=== PATIENT | male | born 1950 | race Caucasian/White ===

== ENCOUNTER 2017-10-22 15:42 | Emergency (ER) | payer MEDICARE, SELFPAY ==
[2017-10-22 15:42] VITALS: BP 128/72; BP 155/73; PULSE 48; PULSE 49; RESP 18; RESP 20; TEMP 36.5; O2SAT 95; O2SAT 96; BMI 35.6
[2017-10-22 16:31] VITALS: BP 127/72; PULSE 57; RESP 16; O2SAT 96
--- NOTE | 2017-10-22 17:40 | [facility]H.EDCP ---
ED Disposition Clinical Impression: Chest pain Qualifiers: Chest pain type: unspecified Qualified Code(s): R07.9 - Chest pain, unspecified Disposition: Home, Self-Care Condition on Discharge: Good Instructions: DI for Atypical Chest Pain Additional Instructions: Call Dr. Harry tomorrow morning, to be seen within the next 2 days. Additional instructions for CHEST PAIN: See your physician as soon as possible for further evaluation. Return immediately if worsening chest pain, vomiting, shortness of breath, fever, coughing of blood. Prescriptions: Nitroglycerin [Nitrostat 0.4mg SL Tablet] 0.4 mg SL Q5MINP PRN #1 bottle PRN Reason: Chest Pain Referrals: Jarred Montiel [Primary Care Provider] - - Critical Care Critical Care Time: No Attestation: On 10/22/17, the high probability of a clinically significant, sudden or life threatening deterioration of the following system(s) required my full and direct attention, intervention and personal management. The time I documented below is in addition to time spent performing reported procedures but includes the following listed in this critical care notation. Medical Decision Making Vital Signs: 10/22/17 15:42 10/22/17 16:31 10/22/17 18:36 Temperature 97.7 F Temperature Source Oral Pulse Rate [Right Radial] 48 L 57 L 43 L Respiratory Rate 20 16 18 Blood Pressure [Right Arm] 128/72 127/72 161/76 Blood Pressure Mean [Right Arm] 90 90 104 Blood Pressure Source [Right Arm] Automatic Cuff Automatic Cuff Automatic Cuff Blood Pressure Position [Right Arm] Supine Sitting Sitting 02 Sat by Pulse Oximetry 95 96 97 Oxygen Delivery Method Room Air Room Air Room Air - Lab Data Lab Results 10/22/17 17:30: WBC 6.8, RBC 4.67, Hgb 13.6 L, Hct 42.4, MCV 90.8, MCH 29.2, MCHC 32.2, RDW 13.7, Plt Count 189, MPV 10.0, Neut % (Auto) 55.3, Lymph % (Auto) 33.4, [place] % (Auto) 7.3, Eos % (Auto) 3.2, Baso % (Auto) 0.9, Neut # (Auto) 3.8, Lymph # (Auto) 2.3, [place] # (Auto) 0.5, Eos # (Auto) 0.2, Baso # (Auto) 0.1 10/22/17 17:30: Sodium 143, Potassium 3.8, Chloride 107, Carbon Dioxide 26, Anion Gap 13.8, BUN 18, Creatinine 0.90, Estimated Creat Clear 135, Estimated GFR 85, Est GFR ( Amer) 102, Glucose 109 H, Calcium 8.4 L, Total Bilirubin 0.3, AST 16, ALT 33, Alkaline Phosphatase 96, Troponin I < 0.02, Total Protein 6.8, Albumin 3.5, Globulin 3.3 H, Albumin/Globulin Ratio 1.1 Result diagrams: 10/22/17 17:30 10/22/17 17:30 Orders (Tests/Meds): ORDERS Category Date Time Status XR chest portable Stat Exams 10/22/17 17:44 Taken - Radiology Data #1 Image(s): Chest Image Reviewed: Yes I reviewed the patient's radiology results Preliminary Findings: Normal/NAD - ECG Data Tracing #1 EKG interpreted by Rasheed Delgado MD: Rhythm: sinus bradycardia Rate: 7 [place]: normal Ectopy: none Conduction: Right bundle branch block ST Segment Changes: none T Wave Changes: none Q Waves: none No evidence of acute ischemia or injury Bundle-branch new since last EKG here in 2012. - Rodo Inquiry Pt receiving controlled substance: No Medical Decision Making Narrative: 6:53 PM: The patient has been pain-free since arriving in the emergency department. Workup is negative. It is felt that one troponin is sufficient given the duration of his symptoms, continuously for 24 hours. I discussed the case with Dr. Day, covering for Dr. barbosa, his perinatal instructor. He feels the patient can be discharged home to follow-up in the office this week. The patient says he has an appointment to be seen next , but I advised him to call in the morning to try to be seen sooner. Return to the emergency department if chest pain recurs. Chest Pain HPI - General Chief Complaint: Chest Pain Stated Complaint: chest pain Mode of Arrival: Ambulatory Limitations: No Limitations Description of Symptoms (Recalled from ER Triage Doc. by RN): left cp that radiates to inner left arm.
--- NOTE | 2017-10-22 17:44 | XR_ITS ---
XR chest portable HISTORY: ITS.REASON: chest pain ORDERING PHYSICIAN: Rasheed Delgado MD PATIENT AGE: 67 years COMPARISON: 10/23/2011 FINDINGS: The cardiomediastinal silhouette and pulmonary vascularity are within normal limits. There is increased density in the right lung base medially somewhat more prominent from the previous study may be due to an area of atelectasis or fibrosis versus patchy infiltrate. Remaining lungs are clear.. No acute bony abnormalities. IMPRESSION: Atelectasis versus fibrotic change or infiltrate in the right lung base
[2017-10-22 18:31] LABS: Basophils # 0.1 K/mm3 (0-0.2); Basophils % 0.9 % (0.1-2.0); Eosinophils # 0.2 K/mm3 (0.0-0.4); Eosinophils % 3.2 % (0.1-12.0); Hematocrit 42.4 % (42.0-52.0); Hemoglobin 13.6 g/dL (14.1-18.0); Lymphocytes # 2.3 K/mm3 (0.7-4.5); Lymphocytes % 33.4 K/mm3 (10-50); Mean Corpuscular HGB Conc 32.2 g/dL (31.8-35.4); Mean Corpuscular Hemoglobin 29.2 pg (27.0-31.2); Mean Corpuscular Volume 90.8 fl (80-94); Monocytes # 0.5 K/mm3 (0.1-1.0); Monocytes % 7.3 % (1.7-9.3); Neutrophils # 3.8 K/mm3 (1.8-7.8); Neutrophils % 55.3 % (37.0-80.0); Platelet Count 189 K/mm3 (142-424); Red Blood Count 4.67 M/mm3 (4.60-6.20); Red Cell Distribution Width 13.7 % (11.5-17.5); White Blood Count 6.8 K/mm3 (4.8-10.8)
[2017-10-22 18:36] VITALS: BP 161/76; PULSE 43; RESP 18; O2SAT 97
[2017-10-22 18:36] LABS: Alanine Aminotransferase 33 U/L (12-78); Albumin Level 3.5 gm/dL (3.4-5.0); Albumin/Globulin Ratio 1.1 (1.1-1.8); Alkaline Phosphatase 96 U/L (46-116); Anion Gap 13.8 mEq/L (5-15); Aspartate Amino Transferase 16 U/L (15-37); Bilirubin,Total 0.3 mg/dL (0.2-1.0); Blood Urea Nitrogen 18 mg/dL (7-18); Calcium 8.4 mg/dL (8.5-10.1); Carbon Dioxide 26 mmol/L (21.0-32.0); Chloride 107 mmol/L (98-107); Creatinine Clearance Estimated 135 mL/min (0-300); Estimated Glomerular Filt Rate 85 ml/min (>60); GFR (African American) 102 ML/MIN (>60); Globulin 3.3 gm/dl (1.3-3.2); Glucose 109 mg/dL (74-106); Potassium 3.8 mmoL/L (3.5-5.1); Sodium 143 mmol/L (136-145); Total Protein,Serum 6.8 gm/dL (6.4-8.2); Troponin I < 0.02 ng/ml (0.00-0.06)
--- NOTE | 2017-10-22 19:08 | PC.NURSE ---
1846- DR. YADAV ON PHONE WITH ANODIZING LINE OPERATOR FOR CARDIOLOGY.
== END 2017-10-22 19:25 | disposition home or self-care (01) ==
PROVIDERS: Emergency Provider Emergency Medicine; Family Provider Family Medicine; PCP Family Medicine
DX: R07.9 Chest pain, unspecified (principal); I25.2 Old myocardial infarction; E11.9 Type 2 diabetes mellitus without complications; Z95.5 Presence of coronary angioplasty implant and graft; Z96.653 Presence of artificial knee joint, bilateral; Z87.891 Personal history of nicotine dependence
CPT/HCPCS: 71045; 80053; 84484; 85025; 93005; 99283

== ENCOUNTER → 2018-01-03 08:17 | Outpatient (CLI) | payer MEDICARE, SELFPAY ==
[2018-01-03 08:24] LABS: Microscopic, Urine URINE MICROSCOPIC (MICROSCOPIC)
[2018-01-03 08:48] LABS: Basophils # 0.1 K/mm3 (0-0.2); Basophils % 0.6 % (0.1-2.0); Eosinophils # 0.3 K/mm3 (0.0-0.4); Eosinophils % 3.3 % (0.1-12.0); Hematocrit 45.4 % (42.0-52.0); Hemoglobin 14.9 g/dL (14.1-18.0); Lymphocytes # 2.6 K/mm3 (0.7-4.5); Lymphocytes % 30.1 K/mm3 (10-50); Mean Corpuscular HGB Conc 32.7 g/dL (31.8-35.4); Mean Corpuscular Hemoglobin 29.4 pg (27.0-31.2); Mean Corpuscular Volume 89.8 fl (80-94); Mean Platelet Volume 8.9 fl (7.4-10.4); Monocytes # 0.4 K/mm3 (0.1-1.0); Monocytes % 4.7 % (1.7-9.3); Neutrophils # 5.4 K/mm3 (1.8-7.8); Neutrophils % 61.4 % (37.0-80.0); Platelet Count 222 K/mm3 (142-424); Red Blood Count 5.05 M/mm3 (4.60-6.20); Red Cell Distribution Width 13.4 % (11.5-17.5); White Blood Count 8.8 K/mm3 (4.8-10.8)
[2018-01-03 08:49] LABS: Appearance,Urine CLEAR (Clear); Bilirubin,Urine Negative (Negative); Blood, Urine Negative (Negative); Color,Urine YELLOW (Yellow); Glucose,Urine (UA) Negative (Negative); Ketones,Urine Negative (Negative); Leukocyte Esterase,Urine Negative (Negative); Nitrate,Urine Negative (Negative); Protein,Urine Negative (Negative); Urobilinogen,Urine 0.2 EU/dl (0.2)
[2018-01-03 08:55] LABS: Bacteria,Urine 1+ /lpf; Mucus,Urine 1+ /lpf; WBC,Urine Occasional #/hpf (0-3)
[2018-01-03 10:45] LABS: Alanine Aminotransferase 33 U/L (12-78); Albumin/Globulin Ratio 1.3 (1.1-1.8); Alkaline Phosphatase 107 U/L (46-116); Anion Gap 13.4 mEq/L (5-15); Aspartate Amino Transferase 17 U/L (15-37); Bilirubin,Total 0.3 mg/dL (0.2-1.0); Blood Urea Nitrogen 19 mg/dL (7-18); Calcium 9.1 mg/dL (8.5-10.1); Carbon Dioxide 28 mmol/L (21.0-32.0); Chloride 105 mmol/L (98-107); Chol/HDL Ratio 1.8 (1-3.5); Cholesterol 125 mg/dL (140-200); Creatinine,Serum 0.91 mg/dL (0.70-1.30); Estimated Glomerular Filt Rate 84 ml/min (>60); Free T4 (Free Thyroxine) 0.88 ng/dl (0.76-1.46); GFR (African American) 101 ML/MIN (>60); Glucose 124 mg/dL (74-106); HDL Cholesterol 68 mg/dL (27-67); LDL Cholesterol 44 mg/dL (0-130); Potassium 4.4 mmoL/L (3.5-5.1); Prostate Specific Ag Screen 0.5 ng/mL (0.0-4.0); Sodium 142 mmol/L (136-145); Thyroid Stimulating Hormone 2.51 uIU/ml (0.358-3.740); Triglycerides 64 mg/dL (30-200); VLDL Cholesterol 13 mg/dL (0-40)
[2018-01-04 06:40] LABS: Creatinine, Urine 122.5 mg/dL (Not Estab.); Microalbumin, Urine 5.1 ug/mL (Not Estab.)
== END ==
PROVIDERS: PCP Family Medicine; Visit Provider Family Medicine
DX: E78.5 Hyperlipidemia, unspecified (principal); I10 Essential (primary) hypertension; E11.9 Type 2 diabetes mellitus without complications; I25.10 Atherosclerotic heart disease of native coronary artery without angina pectoris; R35.1 Nocturia; Z12.5 Encounter for screening for malignant neoplasm of prostate
CPT/HCPCS: 36415; 80053; 80061; 81001; 82043; 82570; 84439; 84443; 85025; G0103

== ENCOUNTER → 2018-01-21 15:20 | Outpatient (CLI) | payer MEDICARE, SELFPAY ==
--- NOTE | 2018-01-21 15:34 | CT_ITS ---
CT lung screening EXAM: CT LUNG LOW DOSE WO CONTRAST HISTORY: History of cigarette smoking asymptomatic ITS.REASON: H/O NICOTINE DEPENDENCE ORDERING PHYSICIAN: Jarred Montiel PATIENT AGE: 68 years COMPARISON: TECHNIQUE: The exam was performed on a GE Light Speed [address] scanner using 2.9 mGy CTDI. A low dose helical CT CHEST was performed on a multi-detector scanner. All CT scans at the facility use one or more dose reduction, viz: automated exposure control; ma/kV adjustment per patient size (including targeted exams where dose is matched to indication; i.e. head); or iterative reconstruction technique. The LDCT was performed in a facility that meets the criteria for the screening program. Data regarding this exam was submitted to ACR which is an approved registry. The order for this exam indicates that it came as a result of a lung cancer screening counseling shard decision-making visit that included all the elements required of such a visit including smoking cessation. The radiologist interpreting this exam meets the CMS criteria for the LDCT lung cancer screening program. The exam is reported using the Lung-RADS classification scale and reported to the ACR registry. NOTE: This study was performed for the specific purposes of lung cancer screening and is not an alternative to diagnostic chest CT. RADIATION DOSE: CTDI vol(CT dose Index-volume) = 2.9mG DLP (Dose Length Product) = 110.6 mGcm FINDINGS: There is calcified granuloma in the left apex. 3 mm nodule in the right middle lobe also appears to represent a calcified granuloma. 4 mm well-circumscribed nodule left apex within the superior segment of left lower lobe representing granuloma. No suspicious pulmonary nodules evident. There are coronary artery calcifications. There is herniation of the lung into the right eighth interspace posterior laterally. 5 mm stone is present in the upper pole the right kidney. IMPRESSION: 1. Lung RADS Category: 2, benign 2. Other findings: Coronary artery calcification suggesting coronary artery disease. 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
== END ==
PROVIDERS: Family Provider Family Medicine; PCP Family Medicine; Visit Provider Family Medicine
DX: Z87.891 Personal history of nicotine dependence (principal); Z12.2 Encounter for screening for malignant neoplasm of respiratory organs

== ENCOUNTER → 2020-05-18 08:16 | Outpatient (CLI) | payer MEDICARE, SELFPAY ==
[2020-05-18 08:24] LABS: Microscopic, Urine URINE MICROSCOPIC (MICROSCOPIC)
[2020-05-18 09:08] LABS: Appearance,Urine CLEAR (Clear); Bilirubin,Urine Negative (Negative); Blood, Urine Negative (Negative); Color,Urine YELLOW (Yellow); Glucose,Urine (UA) Negative (Negative); Ketones,Urine Negative (Negative); Leukocyte Esterase,Urine Negative (Negative); Nitrate,Urine Negative (Negative); Protein,Urine Negative (Negative); Specific Gravity, Urine 1.015 (1.005-1.030); Urobilinogen,Urine 0.2 EU/dl (0.2)
[2020-05-18 09:09] LABS: Creatinine,Urine Random 150 mg/dL (Not Estab.)
[2020-05-18 09:11] LABS: Microalbumin/Creatinine Ratio 10.2
[2020-05-18 09:19] LABS: Chloride 107 mmol/L (98-107); Potassium 4.8 mmoL/L (3.5-5.1); Sodium 143 mmol/L (136-145)
[2020-05-18 09:21] LABS: Blood Urea Nitrogen 18 mg/dl (9-20); Estimated Glomerular Filt Rate 74 ml/min (>60); GFR (African American) 90 ML/MIN (>60)
[2020-05-18 09:22] LABS: Alanine Aminotransferase 26 U/L (12-78); Albumin Level 4.1 g/dl (3.5-5.0); Albumin/Globulin Ratio 1.6 (1.1-1.8); Alkaline Phosphatase 83 U/L (38-126); Anion Gap 13.8 mEq/L (5-15); Aspartate Amino Transferase 24 U/L (17-59); Bilirubin,Total 0.5 mg/dl (0.2-1.3); Calcium 10.1 mg/dl (8.4-10.2); Carbon Dioxide 27 mmol/L (22.0-30.0); Chol/HDL Ratio 1.9 (1-3.5); Cholesterol 115 mg/dl (140-200); Globulin 2.6 g/dL (1.3-3.2); Glucose 137 mg/dl (74-100); HDL Cholesterol 62 mg/dl (40-60); Total Protein,Serum 6.7 g/dl (6.3-8.2); Triglycerides 103 mg/dl (30-150); VLDL Cholesterol 21 mg/dL (0-40)
[2020-05-18 09:28] LABS: WBC,Urine Occasional #/hpf (0-3)
[2020-05-18 09:34] LABS: Direct LDL Cholesterol 40.18 mg/dL (100-129)
[2020-05-18 09:39] LABS: Free T4 (Free Thyroxine) 0.88 ng/dl (0.78-2.19)
[2020-05-18 11:45] LABS: Prostate Specific Ag Screen 0.4 ng/ml (0.0-4.0)
[2020-05-18 11:46] LABS: Basophils % 0.5 % (0.1-2.0); Eosinophils # 0.4 K/mm3 (0.0-0.4); Eosinophils % 4.1 % (0.1-12.0); Hematocrit 42.9 % (42.0-52.0); Hemoglobin 14.1 g/dL (14.1-18.0); Lymphocytes # 2.3 K/mm3 (0.7-4.5); Lymphocytes % 26.8 % (10-50); Mean Corpuscular HGB Conc 32.8 g/dL (31.8-35.4); Mean Corpuscular Hemoglobin 30.9 pg (27.0-31.2); Mean Corpuscular Volume 94.1 fl (80-94); Mean Platelet Volume 9.7 fl (7.4-10.4); Monocytes # 0.4 K/mm3 (0.1-1.0); Neutrophils # 5.4 K/mm3 (1.8-7.8); Neutrophils % 63.6 % (37.0-80.0); Platelet Count 213 K/mm3 (142-424); Red Blood Count 4.56 M/mm3 (4.60-6.20); Red Cell Distribution Width 13.9 % (11.5-17.5); White Blood Count 8.5 K/mm3 (4.8-10.8)
== END ==
PROVIDERS: Visit Provider Family Medicine
DX: I25.10 Atherosclerotic heart disease of native coronary artery without angina pectoris (principal); I10 Essential (primary) hypertension; E11.9 Type 2 diabetes mellitus without complications; Z79.84 Long term (current) use of oral hypoglycemic drugs; N40.0 Benign prostatic hyperplasia without lower urinary tract symptoms; Z12.5 Encounter for screening for malignant neoplasm of prostate; R35.1 Nocturia
CPT/HCPCS: 36415; 80053; 80061; 81001; 82043; 82570; 84439; 85025; G0103

== ENCOUNTER → 2020-06-09 07:55 | Outpatient (CLI) | payer MEDICARE, SELFPAY ==
--- NOTE | 2020-06-09 | CT_ITS ---
PROCEDURE: CT LUNG SCREENING CLINICAL INDICATION: HX OF NICOTINE DEPENDENCE Former smoker quit 9 years ago 40 pack year smoking history CAD prior 01/21/18 COMPARISON: CT LUNGSCREEN CT lung screening from 01/21/2018 TECHNIQUE: The exam was performed on a GE Light Speed [address] scanner using 2.90 mGy CTDI. A low dose helical CT CHEST was performed on a multi-detector scanner. All CT scans at the facility use one or more dose reduction, viz: automated exposure control, ma/kV adjustment per patient size (including targeted exams where dose is matched to indication, i.e. head), or iterative reconstruction technique. The LDCT was performed in a facility that meets the criteria for the screening program. Data regarding this exam was submitted to ACR which is an approved registry. The order for this exam indicates that it came as a result of a lung cancer screening counseling shard decision-making visit that included all the elements required of such a visit including smoking cessation. The radiologist interpreting this exam meets the [facility] criteria for the LDCT lung cancer screening program. The exam is reported using the Lung-RADS classification scale and reported to the ACR registry. NOTE: This study was performed for the specific purposes of lung cancer screening and is not an alternative to diagnostic chest CT. RADIATION DOSE: CTDI vol(CT dose Index-volume) = 2.90mG DLP (Dose Length Product) = 109.16 mGcm FINDINGS: The the the. Stable 3 mm nodule right middle lobe. Stable herniation of the lung into the right 8th interspace posterior laterally fiber granuloma left apex OTHER FINDINGS: Coronary artery calcifications. Gynecomastia IMPRESSION: Lung-RADS Category 2 Benign Appearance or Behavior Follow-up: 12 month LDCT Dictated by: Francisco Dixon MD 06/11/2020 10:57 Francisco Dixon MD in [place] 06/11/2020 10:57
== END ==
PROVIDERS: PCP Family Medicine; Visit Provider Family Medicine
DX: Z87.891 Personal history of nicotine dependence (principal); Z12.2 Encounter for screening for malignant neoplasm of respiratory organs

== ENCOUNTER 2021-03-10 21:13 | Emergency (ER) | payer MEDICARE, SELFPAY ==
[2021-03-10 21:21] VITALS: BMI 41.8
--- NOTE | 2021-03-10 21:23 | CT_ITS ---
PROCEDURE INFORMATION: Exam: CT Cervical Spine Without Contrast Exam date and time: 03/10/2021 9:23 PM Age: 71 years old Clinical indication: Injury or trauma; Blunt trauma; Patient HX: Fall and hit head, no loc; Additional info: Fall with head injury TECHNIQUE: Imaging protocol: Computed tomography images of the cervical spine without contrast. Radiation optimization: All CT scans at this facility use at least one of these dose optimization techniques: automated exposure control; mA and/or kV adjustment per patient size (includes targeted exams where dose is matched to clinical indication); or iterative reconstruction. COMPARISON: No relevant prior studies available. FINDINGS: Bones/joints: Nonspecific straightening. Grade 1 anterolisthesis of C4 on C5. Vertebral body heights are preserved. Moderate degenerative change about the dens. Moderate prevertebral osteophytosis. There are bilateral facet joint degenerative changes. No acute cervical spine fracture. Discs/Spinal canal/Neural foramina: Suspect at least mild central canal stenosis at C5-C6 and C6-C7. Multilevel cervical foraminal stenoses. Lungs: Lung apices are normal. Pleural spaces: No visible pneumothorax. Soft tissues: Unremarkable. IMPRESSION: No acute cervical spine fracture.
--- NOTE | 2021-03-10 21:23 | CT_ITS ---
PROCEDURE INFORMATION: Exam: CT Chest With Contrast; Diagnostic Exam date and time: 03/10/2021 9:23 PM Age: 71 years old Clinical indication: Injury or trauma; Blunt trauma (contusions or hematomas); Patient HX: Fall, right sided rib pain under arm, PT states HX of rib FX on that same side years ago; Additional info: Fall with head injury TECHNIQUE: Imaging protocol: Diagnostic computed tomography of the chest with contrast. 3D rendering (Not supervised by radiologist): MIP and/or 3D reconstructed images were created by the technologist. Radiation optimization: All CT scans at this facility use at least one of these dose optimization techniques: automated exposure control; mA and/or kV adjustment per patient size (includes targeted exams where dose is matched to clinical indication); or iterative reconstruction. Contrast material: ISOVUE; Contrast volume: 75 ml; Contrast route: IV; COMPARISON: 1. CR CXR2V XR chest 2V 03/03/2018 6:[address] lung screening 01/21/2018 4:06:39 PM FINDINGS: Lungs: No acute interstitial or airspace disease. The airways are patent. Stable/chronic herniation of the right lung base into the right 8th intercostal space. Pleural spaces: Unremarkable. No pneumothorax. No pleural effusion. Heart: The heart is mildly enlarged. There is severe atherosclerotic calcification of the coronary arteries. No pericardial thickening or effusion. Mediastinal space: A small hiatal hernia is present. Pulmonary arteries: Normal in course and caliber. 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 The aorta demonstrates mild atherosclerotic calcification. No acute aortic pathology. 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 Lymph nodes: No adenopathy. Kidneys and ureters: There are multiple right renal collecting system calcifications. There are multiple left renal collecting system calcifications. Bones/joints: Linear fracture to the lateral segment of the right 5th rib, new from the reference examination. No other acutely displaced fractures are identified. Moderate multilevel degenerative changes of the spine, as manifested by multilevel anterior osteophytes and multilevel decrease in intervertebral disc space. Stable chronic widening of the right 8th intercostal space. Soft tissues: No acute soft tissue findings are appreciated. Other findings: The visualized intra-abdominal structures demonstrate no acute findings. IMPRESSION: 1. Linear fracture to the lateral segment of the right 5th rib, new from the reference examination. 2. Incidental findings as detailed above.
--- NOTE | 2021-03-10 21:23 | XR_ITS ---
PROCEDURE INFORMATION: Exam: XR Chest Exam date and time: 03/10/2021 9:23 PM Age: 71 years old Clinical indication: Injury or trauma; Blunt trauma (contusions or hematomas); Patient HX: Fall, right sided rib pain under arm, PT states HX of rib FX on that same side years ago; Additional info: Fall with right rib pain TECHNIQUE: Imaging protocol: XR of the chest. Views: 4 or more views. COMPARISON: CT CHEST W CON 03/10/2021 11:02 PM FINDINGS: Airway: The airways are patent. Lungs: No acute interstitial or airspace disease. Pleural spaces: There are no pleural effusions present. There is no evidence of pneumothorax. Heart/Mediastinum: The heart is mildly enlarged. Bones/joints: Please note that there are is a linear fracture to the lateral segment of the right 5th rib which is not confidently seen in this exam, however is seen in the chest CT performed concomitantly; please review. No other acutely displaced fractures are identified. IMPRESSION: Please note that there are is a linear fracture to the lateral segment of the right 5th rib which is not confidently seen in this exam, however is seen in the chest CT performed concomitantly; please review.
--- NOTE | 2021-03-10 21:23 | CT_ITS ---
PROCEDURE INFORMATION: Exam: CT Head Without Contrast Exam date and time: 03/10/2021 9:23 PM Age: 71 years old Clinical indication: Injury or trauma; Blunt trauma (contusions or hematomas); Without loss of consciousness; Patient HX: Fall and hit head, no loc; Additional info: Fall with head injury TECHNIQUE: Imaging protocol: Computed tomography of the head without contrast. Radiation optimization: All CT scans at this facility use at least one of these dose optimization techniques: automated exposure control; mA and/or kV adjustment per patient size (includes targeted exams where dose is matched to clinical indication); or iterative reconstruction. COMPARISON: No relevant prior studies available. FINDINGS: Brain: Moderate to severe volume loss. No acute intracranial hemorrhage, midline shift or intracranial mass effect. Cerebral ventricles: Ventriculomegaly is commensurate for degree of volume loss. Paranasal sinuses: Visualized sinuses are unremarkable. No fluid levels. Mastoid air cells: Visualized mastoid air cells are well aerated. Bones/joints: Unremarkable. No acute fracture. Soft tissues: Unremarkable. IMPRESSION: No acute intracranial abnormality.
--- NOTE | 2021-03-10 21:23 | XR_ITS ---
PROCEDURE INFORMATION: Exam: XR Pelvis Exam date and time: 03/10/2021 9:23 PM Age: 71 years old Clinical indication: Injury or trauma; Fall; Blunt trauma (contusions or hematomas); Does not apply; Pelvic region TECHNIQUE: Imaging protocol: XR pelvis. Views: 1 or 2 view. COMPARISON: ABDPELW/O CT ABD PELVIS W/O CONTRAST 12/01/2015 3:08 PM FINDINGS: Bones/joints: Mild bilateral hip osteoarthritis. Normal anatomic alignment. There is no evidence of acutely displaced fractures. There is no evidence of joint dislocation. No aggressive osseous lesions. Soft tissues: There is no significant soft tissue swelling. IMPRESSION: Negative for acute skeletal pathology.
[2021-03-10 21:27] VITALS: BP 178/83; PULSE 55; RESP 22; TEMP 36.6; O2SAT 98; BMI 41.8
--- NOTE | 2021-03-10 21:41 | HMH.EDFALL ---
ED Disposition Clinical Impression: Concussion without loss of consciousness Qualifiers: Encounter type: initial encounter Qualified Code(s): S06.0X0A - Concussion without loss of consciousness, initial encounter Rib fracture Qualifiers: Encounter type: initial encounter Rib fracture type: single rib Fracture type: closed Laterality: right Qualified Code(s): S22.31XA - Fracture of one rib, right side, initial encounter for closed fracture Disposition: Home, Self-Care Condition on Discharge: Good Instructions: DI for Rib Fracture Additional Instructions: use meds and see pcp for follow up Referrals: Jarred Montiel [Primary Care Provider] - - Critical Care Critical Care Time: No Attestation: On 03/10/21, the high probability of a clinically significant, sudden or life threatening deterioration of the following system(s) required my full and direct attention, intervention and personal management. The time I documented below is in addition to time spent performing reported procedures but includes the following listed in this critical care notation. Medical Decision Making - Medical Records Medical records reviewed: Yes: I reviewed the patient's medical records. - Rodo Inquiry Pt receiving controlled substance: No Vital Signs: 03/10/21 21:27 03/10/21 22:31 03/10/21 23:31 Temperature 97.8 F Temperature Source Oral Pulse Rate 46 L 54 L Pulse Rate [Right] 55 L Respiratory Rate 22 Blood Pressure 146/67 H 158/76 H Blood Pressure [Right Arm] 178/83 H Blood Pressure Mean 89 Blood Pressure Mean [Right Arm] 114 Blood Pressure Source [Right Arm] Automatic Cuff Blood Pressure Position [Right Arm] Sitting 02 Sat by Pulse Oximetry 98 95 97 Oxygen Delivery Method Room Air 03/11/21 00:01 Temperature Temperature Source Pulse Rate 52 L Pulse Rate [Right] Respiratory Rate Blood Pressure 168/80 H Blood Pressure [Right Arm] Blood Pressure Mean 94 Blood Pressure Mean [Right Arm] Blood Pressure Source [Right Arm] Blood Pressure Position [Right Arm] 02 Sat by Pulse Oximetry 96 Oxygen Delivery Method - Lab Data Lab results reviewed: Yes: I reviewed the patient's lab results. Lab Results 03/10/21 22:00: WBC 9.2, RBC 4.31 L, Hgb 13.2 L, Hct 38.1 L, MCV 88.3, MCH 30.5, MCHC 34.5, RDW 13.9, Plt Count 192, MPV 9.6, Neut % (Auto) 69.0, Lymph % (Auto) 22.1, [place] % (Auto) 6.0, Eos % (Auto) 2.3, Baso % (Auto) 0.7, Neut # (Auto) 6.3, Lymph # (Auto) 2.0, [place] # (Auto) 0.6, Eos # (Auto) 0.2, Baso # (Auto) 0.1, ESR 16 03/10/21 22:00: Sodium 140, Potassium 4.0, Chloride 112 H, Carbon Dioxide 23, Anion Gap 9.0, BUN 20, Creatinine 0.90, Estimated Creat Clear 83, Estimated GFR 84, Est GFR ( Amer) 101, Glucose 123 H, Calcium 9.1, Total Bilirubin 0.6, AST 27, ALT 30, Alkaline Phosphatase 98, C-Reactive Protein 1.7, Total Protein 6.9, Albumin 4.2, Globulin 2.7, Albumin/Globulin Ratio 1.6, Procalcitonin 0.074 Result diagrams: 03/10/21 22:00 03/10/21 22:00 Orders (Tests/Meds): ED MEDICATIONS Generic Name Dose Route Start Last Admin Trade Name Freq PRN Reason Stop Dose Admin Sodium Chloride 1,000 mls @ 999 mls/hr 03/10/21 21:30 03/10/21 22:06 Sod Chlor 0.9% 1000ml Bag IV 03/10/21 22:30 999 mls/hr .[id number] HOLLIE Administration Discontinued Medications Generic Name Dose Route Start Last Admin Trade Name Freq PRN Reason Stop Dose Admin Acetaminophen/Codeine Phosphate 1 kala 03/11/21 00:39 Acetaminophen 300mg W/Codeine 30mg Take Home Pack (6) PO 03/11/21 00:40 ONCE ONE Hydromorphone HCl 1 mg 03/10/21 22:05 03/10/21 22:06 Hydromorphone 2mg/Ml Syringe IV 03/10/21 22:06 1 mg ONCE ONE Administration Hydromorphone HCl 1 mg 03/10/21 23:28 03/10/21 23:29 Hydromorphone 2mg/Ml Syringe IV 03/10/21 23:29 1 mg ONCE ONE Administration Iopamidol 75 ml 03/10/21 23:26 03/10/21 23:27 Iopamidol-370 (76%);100ml Bottle IV 03/10/21 23:27 75 ml ONCE ONE A
[2021-03-10 22:27] LABS: Basophils # 0.1 K/mm3 (0-0.2); Basophils % 0.7 % (0.1-2.0); Eosinophils # 0.2 K/mm3 (0.0-0.4); Eosinophils % 2.3 % (0.1-12.0); Hematocrit 38.1 % (42.0-52.0); Hemoglobin 13.2 g/dL (14.1-18.0); Lymphocytes % 22.1 % (10-50); Mean Corpuscular HGB Conc 34.5 g/dL (31.8-35.4); Mean Corpuscular Hemoglobin 30.5 pg (27.0-31.2); Mean Corpuscular Volume 88.3 fl (80-94); Mean Platelet Volume 9.6 fl (7.4-10.4); Monocytes # 0.6 K/mm3 (0.1-1.0); Neutrophils # 6.3 K/mm3 (1.8-7.8); Platelet Count 192 K/mm3 (142-424); Red Blood Count 4.31 M/mm3 (4.60-6.20); Red Cell Distribution Width 13.9 % (11.5-17.5); White Blood Count 9.2 K/mm3 (4.8-10.8)
[2021-03-10 22:31] VITALS: BP 146/67; PULSE 46; O2SAT 95
[2021-03-10 22:33] LABS: Alanine Aminotransferase 30 U/L (12-78); Albumin Level 4.2 g/dl (3.5-5.0); Albumin/Globulin Ratio 1.6 (1.1-1.8); Alkaline Phosphatase 98 U/L (38-126); Aspartate Amino Transferase 27 U/L (17-59); Bilirubin,Total 0.6 mg/dl (0.2-1.3); Blood Urea Nitrogen 20 mg/dl (9-20); Calcium 9.1 mg/dl (8.4-10.2); Carbon Dioxide 23 mmol/L (22.0-30.0); Chloride 112 mmol/L (98-107); Creatinine Clearance Estimated 83 mL/min (50-200); Estimated Glomerular Filt Rate 84 ml/min (>60); GFR (African American) 101 ML/MIN (>60); Globulin 2.7 g/dL (1.3-3.2); Glucose 123 mg/dl (74-100); Sodium 140 mmol/L (136-145); Total Protein,Serum 6.9 g/dl (6.3-8.2)
[2021-03-10 22:38] LABS: C-Reactive Protein 1.7 mg/L (0-4)
[2021-03-10 22:51] LABS: Procalcitonin 0.074 ng/mL (0.0-2.0)
[2021-03-10 23:05] LABS: Erythrocyte Sedimentation Rate 16 mm/hr (0-20)
[2021-03-10 23:31] VITALS: BP 158/76; PULSE 54; O2SAT 97
[2021-03-11 00:01] VITALS: BP 168/80; PULSE 52; O2SAT 96
[2021-03-11 01:00] VITALS: BP 147/76; PULSE 59; RESP 16; TEMP 36.6; O2SAT 96
== END 2021-03-11 01:09 | disposition home or self-care (01) ==
PROVIDERS: Emergency Provider Emergency Medicine; PCP Family Medicine
DX: S06.0X0A Concussion without loss of consciousness, initial encounter (principal); S22.31XA Fracture of one rib, right side, initial encounter for closed fracture; W01.0XXA Fall on same level from slipping, tripping and stumbling without subsequent striking against object, initial encounter; Y92.9 Unspecified place or not applicable; I25.10 Atherosclerotic heart disease of native coronary artery without angina pectoris; E11.9 Type 2 diabetes mellitus without complications; I10 Essential (primary) hypertension; E78.5 Hyperlipidemia, unspecified; Z87.891 Personal history of nicotine dependence; Z79.899 Other long term (current) drug therapy
CPT/HCPCS: 70450; 71045; 71260; 72125; 72170; 80053; 84145; 85025; 85651; 86140; 96376; 99282; J2405; Q9967

== ENCOUNTER 2021-04-25 16:58 | Emergency (ER) | payer MEDICARE, SELFPAY ==
[2021-04-25 17:56] VITALS: BP 159/69; PULSE 69; RESP 21; TEMP 37; O2SAT 98; BMI 41.8
[2021-04-25 17:56] LABS: UTC Strep Screen (Rapid) Negative (Negative)
--- NOTE | 2021-04-25 18:14 | HMH.EDUTC ---
[facility] Disposition Clinical Impression: URI (upper respiratory infection) Qualifiers: URI type: unspecified URI Qualified Code(s): J06.9 - Acute upper respiratory infection, unspecified Disposition: Home, Self-Care Condition on Discharge: Good Instructions: Sore Throat, DI for Sinusitis, Sinusitis, Cefdinir Additional Instructions: *Monitor Temp, Over the counter Motrin or Tylenol as directed/as needed Tylenol every 4 hours and Motrin every 6 hours (as long as your family doctor has told you that you can take it) for fever or pain. and straight to ER if unable to lower temp less than 101.0 after medication given *Warm salt water gargles may help to soothe the throat *Throat Lozenges *Warm fluids like tea with honey may help to soothe the throat *Sleep elevated *Humidifier/Vaporizer Your throat swab was sent for culture. Those results are typically sent to your primary care. Be sure to follow up in 2-3 days with your family doctor/primary care physician if no improvement so they can review those result and treat if necessary. If you don?t have a primary care doctor, I recommend you get one but in the mean time, you will have to return to a walk in clinic Follow up IMMEDIATELY for new or worsening symptoms or no Noticeable improvement over the next 48-72 hours. 911 for difficulty breathing or swallowing You were tested for today for COVID19 your test result should be back in the next 24-48 hours, you may call to the [facility] to see if your test results are back in the next 48 hours [phone] [facility] hours are 9am-9pm You was given a handout with instructions for Self Quarantine and Self isolation for while you wait on test results and what to do if they are positive If you are positive the Health Dept will be contacting you also Prescriptions: Cefdinir [Omnicef 300mg Capsule] 300 mg PO BID #20 cap Transmission Status: Pending to [facility] # Ondansetron [Zofran 4mg ODT] 4 mg PO TIDP PRN #10 tab PRN Reason: Nausea Transmission Status: Pending to [facility] # Referrals: Jarred Montiel [Primary Care Provider] - As needed Time of Disposition: 18:25 Medical Decision Making - Rodo Inquiry Pt receiving controlled substance: No Rodo was queried for this patient: No Vital Signs: 04/25/21 17:56 Temperature 98.6 F Temperature Source Oral Pulse Rate [Left] 69 Respiratory Rate 21 Blood Pressure [Right Arm] 159/69 H Blood Pressure Mean [Right Arm] 99 02 Sat by Pulse Oximetry 98 - Lab Data Lab results reviewed: Yes: I reviewed the patient's lab results. Lab Results 04/25/21 17:38: Strep Scn Rapid Clinic Negative Orders (Tests/Meds): ORDERS Category Date Time Status Covid-19 Nasal PCR ([facility]) Routine Lab 04/25/21 18:05 Ordered Strep Screen Confirmation Stat Micro 04/25/21 17:38 Received [facility] HPI - General Stated complaint: Sore throat,cough,Vomiting,congestion Time Seen by Provider: 04/25/21 18:14 Mode of Arrival: Ambulatory Source of Information: Patient Limitations: No Limitations Description of Symptoms (Recalled from Triage Doc. by RN): pt c/o sore throat, cough and nausea x3 days HEENT Symptoms (Recalled from RN notes): Yes (sore throat) Resp Symptoms (Recalled from RN notes): Yes (cough) Skin Symptoms (Recalled from RN notes): No MS Symptoms (Recalled from RN notes): No Functional Status (Recalled from RN notes): na - History of Present Illness Provider Complaint: Patient states that he has been having sore throat, sinus pain and pressure along with congestion and cough State that he has been having nausea but no vomiting that has continued for the last three days States that today he was still feeling bad so he came in - Related Data Home Medications Medication Instructions Recorded Confirmed Amlodipine Besylate/Benazepril 1 tab PO DAILY 02/25/18 03/01/19 [Amlodipine-Benazepril 5-20 mg] Aspirin 81 mg PO DAILY 02/25/18 03/01/19 Atorvastatin C
[2021-04-25 18:30] VITALS: BP 152/73; PULSE 71; RESP 20; TEMP 36.9
== END 2021-04-25 18:35 | disposition home or self-care (01) ==
PROVIDERS: Emergency Provider Nurse Practitioner; PCP Family Medicine
DX: J06.9 Acute upper respiratory infection, unspecified (principal); I10 Essential (primary) hypertension; I25.10 Atherosclerotic heart disease of native coronary artery without angina pectoris; E11.9 Type 2 diabetes mellitus without complications; K21.9 Gastro-esophageal reflux disease without esophagitis; E78.5 Hyperlipidemia, unspecified; Z79.899 Other long term (current) drug therapy
CPT/HCPCS: G0463; 87880; 99203; U0003

== ENCOUNTER → 2021-05-26 08:46 | Outpatient (CLI) | payer MEDICARE, SELFPAY ==
[2021-05-26 08:53] LABS: Microscopic, Urine URINE MICROSCOPIC (MICROSCOPIC)
[2021-05-26 11:15] LABS: Basophils # 0.1 K/mm3 (0-0.2); Basophils % 0.6 % (0.1-2.0); Eosinophils # 0.3 K/mm3 (0.0-0.4); Eosinophils % 4.5 % (0.1-12.0); Hematocrit 41.3 % (42.0-52.0); Hemoglobin 13.4 g/dL (14.1-18.0); Lymphocytes % 26.3 % (10-50); Mean Corpuscular HGB Conc 32.4 g/dL (31.8-35.4); Mean Corpuscular Hemoglobin 30.1 pg (27.0-31.2); Mean Corpuscular Volume 92.8 fl (80-94); Mean Platelet Volume 10.2 fl (7.4-10.4); Monocytes # 0.5 K/mm3 (0.1-1.0); Neutrophils # 4.7 K/mm3 (1.8-7.8); Neutrophils % 62.5 % (37.0-80.0); Platelet Count 224 K/mm3 (142-424); Red Blood Count 4.46 M/mm3 (4.60-6.20); Red Cell Distribution Width 14.1 % (11.5-17.5); White Blood Count 7.5 K/mm3 (4.8-10.8)
[2021-05-26 11:30] LABS: Appearance,Urine CLEAR (Clear); Bilirubin,Urine Negative (Negative); Blood, Urine Negative (Negative); Color,Urine YELLOW (Yellow); Glucose,Urine (UA) Negative (Negative); Ketones,Urine Negative (Negative); Leukocyte Esterase,Urine TRACE (Negative); Nitrate,Urine Negative (Negative); Protein,Urine Negative (Negative); Specific Gravity, Urine 1.025 (1.005-1.030); Urobilinogen,Urine 0.2 EU/dl (0.2)
[2021-05-26 11:57] LABS: Chloride 109 mmol/L (98-107); Potassium 4.6 mmoL/L (3.5-5.1); Sodium 144 mmol/L (136-145)
[2021-05-26 11:59] LABS: Blood Urea Nitrogen 20 mg/dl (9-20); Estimated Glomerular Filt Rate 96 ml/min (>60); GFR (African American) 116 ML/MIN (>60)
[2021-05-26 12:00] LABS: Alanine Aminotransferase 30 U/L (12-78); Albumin Level 3.9 g/dl (3.5-5.0); Albumin/Globulin Ratio 1.6 (1.1-1.8); Alkaline Phosphatase 96 U/L (38-126); Anion Gap 17.6 mEq/L (5-15); Aspartate Amino Transferase 24 U/L (17-59); Bilirubin,Total 0.2 mg/dl (0.2-1.3); Calcium 9.1 mg/dl (8.4-10.2); Carbon Dioxide 22 mmol/L (22.0-30.0); Cholesterol 106 mg/dl (140-200); Globulin 2.4 g/dL (1.3-3.2); Glucose 149 mg/dl (74-100); Total Protein,Serum 6.3 g/dl (6.3-8.2); Triglycerides 92 mg/dl (30-150); VLDL Cholesterol 18 mg/dL (0-40)
[2021-05-26 12:01] LABS: Chol/HDL Ratio 2.3 (1-3.5); HDL Cholesterol 46 mg/dl (40-60)
[2021-05-26 12:11] LABS: Direct LDL Cholesterol 39.36 mg/dL (100-129)
[2021-05-26 12:16] LABS: Free T4 (Free Thyroxine) 0.84 ng/dl (0.78-2.19)
[2021-05-26 12:33] LABS: Thyroid Stimulating Hormone 0.91 uIU/mL (0.465-4.68)
[2021-05-26 14:11] LABS: Hemoglobin A1C 7.6 % (4.0-6.0)
[2021-05-26 14:28] LABS: Bacteria,Urine Trace /lpf; Squamous Epithelial Cell,Urine Occasional #/hpf (0-5)
== END ==
PROVIDERS: Visit Provider Family Medicine
DX: I10 Essential (primary) hypertension (principal); E78.5 Hyperlipidemia, unspecified; E11.9 Type 2 diabetes mellitus without complications; R53.83 Other fatigue; N40.0 Benign prostatic hyperplasia without lower urinary tract symptoms; R35.1 Nocturia; Z79.84 Long term (current) use of oral hypoglycemic drugs
CPT/HCPCS: 36415; 80053; 80061; 81001; 82043; 83036; 84153; 84439; 84443; 85025

== ENCOUNTER 2021-06-07 17:15 | Emergency (ER) | payer MEDICARE, SELFPAY ==
[2021-06-07 18:50] VITALS: BP 168/80; PULSE 54; RESP 18; TEMP 36.8; O2SAT 97; BMI 41.2
--- NOTE | 2021-06-07 19:13 | HMH.EDUTC ---
[facility] [place] Disposition Clinical Impression: Exposure to COVID-19 virus Disposition: Home, Self-Care Condition on Discharge: Good Instructions: DI for COVID-19 (Suspected or Confirmed ), Preventing the Spread of Coronavirus Discharge Instructions Additional Instructions: *Monitor Temp, Over the counter Motrin or Tylenol as directed/as needed Tylenol every 4 hours and Motrin every 6 hours (as long as your family doctor has told you that you can take it) for fever or pain. and straight to ER if unable to lower temp less than 101.0 after medication given Follow up IMMEDIATELY for new or worsening symptoms or no Noticeable improvement over the next 48-72 hours. 911 for difficulty breathing or swallowing You were tested for today for COVID19 your test result should be back in the next 24-48 hours, you was given handout on [facility] portal where you can review your results if you do not have internet access you may call the [facility] You was given a handout with instructions for Self Quarantine and Self isolation for while you wait on test results and what to do if they are positive If you are positive the Health Dept will be contacting you also Make sure to take your Vitamins Vit. C Vit D and Zinc if you can take them Referrals: Jarred Montiel [Primary Care Provider] - As needed Forms: Work/School Release Medical Decision Making - Rodo Inquiry Pt receiving controlled substance: No Rodo was queried for this patient: No Vital Signs: 06/07/21 18:50 Temperature 98.2 F Temperature Source Oral Pulse Rate [Right Brachial] 54 L Respiratory Rate 18 Blood Pressure [Right Arm] 168/80 H Blood Pressure Mean [Right Arm] 109 Blood Pressure Source [Right Arm] Automatic Cuff Blood Pressure Position [Right Arm] Sitting 02 Sat by Pulse Oximetry 97 Oxygen Delivery Method Room Air Orders (Tests/Meds): ORDERS Category Date Time Status Covid-19 Nasal PCR ([facility]) Routine Lab 06/07/21 19:06 Ordered [facility] [place] HPI - General Stated complaint: covis test Time Seen by Provider: 06/07/21 19:13 Mode of Arrival: Ambulatory Source of Information: Patient Limitations: No Limitations Description of Symptoms (Recalled from Triage Doc. by RN): COVID TEST D/T EXPOSURE. DENIES SYMPTOMS HEENT Symptoms (Recalled from RN notes): No Resp Symptoms (Recalled from RN notes): No Skin Symptoms (Recalled from RN notes): No MS Symptoms (Recalled from RN notes): No Functional Status (Recalled from RN notes): WNL - History of Present Illness Provider Complaint: Patient states that she was recenty around someone that tested positive for COVID states that he is not having any symptoms but due to exposure wanted to get checked - Related Data Home Medications Medication Instructions Recorded Confirmed Amlodipine Besylate/Benazepril 1 tab PO DAILY 02/25/18 03/01/19 [Amlodipine-Benazepril 5-20 mg] Aspirin 81 mg PO DAILY 02/25/18 03/01/19 Atorvastatin Calcium [Atorvastatin 80 mg PO DAILY 02/25/18 03/01/19 80mg Tab] Metformin HCl 500 mg PO BID 02/25/18 03/01/19 Metoprolol Succinate [Toprol Xl] 25 tab PO DAILY 02/25/18 03/01/19 Pantoprazole Sodium [Protonix 40mg 40 mg PO DAILY 02/25/18 03/01/19 (granule) packet] Previous Rx's Medication Instructions Recorded Nitroglycerin [Nitrostat 0.4mg SL 0.4 mg SL Q5MINP PRN #1 bottle 10/22/17 Tablet] clindamycin HCL [Clindamycin HCl 300 mg PO Q6 7 Days #28 cap 05/17/19 300mg Cap] Ondansetron [Zofran 4mg ODT] 4 mg PO Q8HP PRN #20 tab.rapdis 09/21/19 Oseltamivir Phosphate [Tamiflu 75 mg PO BID #10 cap 09/21/19 75mg Capsule] Benzonatate [Tessalon Perle 100mg 100 mg PO TID PRN #30 cap 04/25/21 Cap*] Cefdinir [Omnicef 300mg Capsule] 300 mg PO BID #20 cap 04/25/21 Ondansetron [Zofran 4mg ODT] 4 mg PO TIDP PRN #10 tab 04/25/21 Allergies Allergy/AdvReac Type Severity Reaction Status Date / Time No Known Drug Allergies Allergy Unknown Verified 02/25/18 09:26 - Worker's Co
[2021-06-07 19:38] VITALS: BP 168/80; PULSE 54; RESP 18; TEMP 36.8; O2SAT 97
== END 2021-06-07 19:42 | disposition home or self-care (01) ==
PROVIDERS: Emergency Provider Nurse Practitioner; PCP Family Medicine
DX: Z20.822 Contact with and (suspected) exposure to COVID-19 (principal); I25.10 Atherosclerotic heart disease of native coronary artery without angina pectoris; E11.9 Type 2 diabetes mellitus without complications; E78.5 Hyperlipidemia, unspecified; I10 Essential (primary) hypertension
CPT/HCPCS: 99202; G0463; U0003

== ENCOUNTER → 2021-06-14 13:59 | Outpatient (CLI) | payer MEDICARE, SELFPAY ==
--- NOTE | 2021-06-14 14:05 | CT_ITS ---
PROCEDURE: CT LUNG SCREENING CLINICAL INDICATION: HX OF TOBACCO USE COMPARISON: CT CT LUNG SCREENING from 06/09/[address] CHEST W CON from 03/10/2021 TECHNIQUE: The exam was performed on a GE Light Speed [address] scanner using 2.90 mGy CTDI. A low dose helical CT CHEST was performed on a multi-detector scanner. All CT scans at the facility use one or more dose reduction, viz: automated exposure control, ma/kV adjustment per patient size (including targeted exams where dose is matched to indication, i.e. head), or iterative reconstruction technique. The LDCT was performed in a facility that meets the criteria for the screening program. Data regarding this exam was submitted to ACR which is an approved registry. The order for this exam indicates that it came as a result of a lung cancer screening counseling shard decision-making visit that included all the elements required of such a visit including smoking cessation. The radiologist interpreting this exam meets the CMS criteria for the LDCT lung cancer screening program. The exam is reported using the Lung-RADS classification scale and reported to the ACR registry. NOTE: This study was performed for the specific purposes of lung cancer screening and is not an alternative to diagnostic chest CT. RADIATION DOSE: CTDI vol(CT dose Index-volume) = 2.90mG DLP (Dose Length Product) = 110.46 mGcm FINDINGS: COPD changes. No suspicious nodule evident. Chronic scarring in the left lung base. OTHER FINDINGS: Coronary artery calcification and/or stents. Bilateral nephrolithiasis Old right 5th rib fracture. 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 IMPRESSION: Lung-RADS Category 1 Negative Follow-up: Continue annual screening with LDCT in 12 months Dictated by: Francisco Dixon MD 06/30/2021 14:58 Francisco Dixon MD in [place] 06/30/2021 14:58
== END ==
PROVIDERS: PCP Family Medicine; Visit Provider Family Medicine
DX: Z87.891 Personal history of nicotine dependence (principal); Z12.2 Encounter for screening for malignant neoplasm of respiratory organs
CPT/HCPCS: 71271

== ENCOUNTER 2021-06-27 12:55 | Emergency (ER) | payer MEDICARE, SELFPAY ==
[2021-06-27 12:55] VITALS: BP 141/83; PULSE 69; RESP 16; TEMP 36.6; O2SAT 99; BMI 41.2
--- NOTE | 2021-06-27 14:04 | HMH.EDUTC ---
[facility] [place] Disposition Clinical Impression: Sinusitis Qualifiers: Sinusitis location: unspecified location Chronicity: acute Recurrence: non-recurrent Qualified Code(s): J01.90 - Acute sinusitis, unspecified Disposition: Home, Self-Care Condition on Discharge: Good Instructions: DI for Sinusitis Additional Instructions: Drink plenty of fluids. Take tylenol or ibuprofen for pain or fever. Take the medications as directed. Follow up with your regular doctor. GO TO THE ER FOR ANY WORSENING SYMPTOMS Prescriptions: predniSONE [Prednisone 20mg Tab] 20 mg PO BID 4 Days #8 tab Transmission Status: Received by [facility] # Azithromycin [Z-Bairon 250mg Tab*] 250 mg PO UD DOSE PK #6 tab Transmission Status: Received by [facility] # Referrals: Jarred Montiel [Primary Care Provider] - Forms: Work/School Release Time of Disposition: 14:10 Medical Decision Making - Medical Records Medical records reviewed: No: I reviewed the patient's medical records. - Rodo Inquiry Pt receiving controlled substance: No Vital Signs: 06/27/21 12:55 06/27/21 14:16 Temperature 98 F 98 F Temperature Source Oral Oral Pulse Rate 74 Pulse Rate [Radial] 69 Respiratory Rate 16 16 Blood Pressure 113/74 Blood Pressure [Right Arm] 141/83 H Blood Pressure Mean [Right Arm] 102 Blood Pressure Position Sitting Blood Pressure Position [Right Arm] Sitting 02 Sat by Pulse Oximetry 99 Oxygen Delivery Method Room Air Room Air [facility] [place] HPI - General Stated complaint: cough, sore throat, congestion Time Seen by Provider: 06/27/21 14:05 Mode of Arrival: Ambulatory Source of Information: Patient Limitations: No Limitations Description of Symptoms (Recalled from Triage Doc. by RN): to [facility] with c/o cough, runnynose, denies fever HEENT Symptoms (Recalled from RN notes): No Resp Symptoms (Recalled from RN notes): Yes Skin Symptoms (Recalled from RN notes): No MS Symptoms (Recalled from RN notes): No Functional Status (Recalled from RN notes): na - History of Present Illness Provider Complaint: He states that for the past 3 days he has had a runny nose and nasal congestion. He feels fine but he thinks he is getting a sinus infection. He denies any fever/chills/body aches. He refuses a covid-19 test. He has not been vaccinated against covid-19. - Related Data Home Medications Medication Instructions Recorded Confirmed Amlodipine Besylate/Benazepril 1 tab PO DAILY 02/25/18 03/01/19 [Amlodipine-Benazepril 5-20 mg] Aspirin 81 mg PO DAILY 02/25/18 03/01/19 Atorvastatin Calcium [Atorvastatin 80 mg PO DAILY 02/25/18 03/01/19 80mg Tab] Metformin HCl 500 mg PO BID 02/25/18 03/01/19 Metoprolol Succinate [Toprol Xl] 25 tab PO DAILY 02/25/18 03/01/19 Pantoprazole Sodium [Protonix 40mg 40 mg PO DAILY 02/25/18 03/01/19 (granule) packet] Previous Rx's Medication Instructions Recorded Nitroglycerin [Nitrostat 0.4mg SL 0.4 mg SL Q5MINP PRN #1 bottle 10/22/17 Tablet] clindamycin HCL [Clindamycin HCl 300 mg PO Q6 7 Days #28 cap 05/17/19 300mg Cap] Ondansetron [Zofran 4mg ODT] 4 mg PO Q8HP PRN #20 tab.rapdis 09/21/19 Oseltamivir Phosphate [Tamiflu 75 mg PO BID #10 cap 09/21/19 75mg Capsule] Benzonatate [Tessalon Perle 100mg 100 mg PO TID PRN #30 cap 04/25/21 Cap*] Cefdinir [Omnicef 300mg Capsule] 300 mg PO BID #20 cap 04/25/21 Ondansetron [Zofran 4mg ODT] 4 mg PO TIDP PRN #10 tab 04/25/21 Azithromycin [Z-Bairon 250mg Tab*] 250 mg PO UD DOSE PK #6 tab 06/27/21 predniSONE [Prednisone 20mg 20 mg PO BID 4 Days #8 tab 06/27/21 Tab] Allergies Allergy/AdvReac Type Severity Reaction Status Date / Time No Known Drug Allergies Allergy Unknown Verified 02/25/18 09:26 - Worker's Comp Is this a Worker's Comp case?: No [facility] History - Hepatitis A Screen Drug use history?: No High risk sexual behaviors?: No History of sexually transmitted infection?: No Curre
[2021-06-27 14:16] VITALS: BP 113/74; PULSE 74; RESP 16; TEMP 36.6; O2SAT 98
== END 2021-06-27 14:18 | disposition home or self-care (01) ==
PROVIDERS: Emergency Provider Nurse Practitioner Family; PCP Family Medicine
DX: J01.90 Acute sinusitis, unspecified (principal)
CPT/HCPCS: 99202; G0463

== ENCOUNTER 2021-08-28 16:42 | Emergency (ER) | payer MEDICARE, SELFPAY ==
[2021-08-28 17:27] VITALS: BP 206/87; PULSE 75; RESP 20; TEMP 37; O2SAT 99; BMI 40.6
--- NOTE | 2021-08-28 17:51 | HMH.EDUTC ---
[facility] [place] Disposition Clinical Impression: Bronchitis, Exposure to COVID-19 virus Disposition: Home, Self-Care Condition on Discharge: Good Instructions: DI for Acute Bronchitis, DI for COVID-19 (Suspected or Confirmed ), Preventing the Spread of Coronavirus Discharge Instructions Additional Instructions: Drink plenty of fluids. Take tylenol or ibuprofen for pain or fever. Take the medications as directed. Follow up with your regular doctor. GO TO THE ER FOR ANY WORSENING SYMPTOMS Quarantine until you know the results of your covid-19 test. If it is positive, the health department should call you and give you further instructions about your length of Quarantine and other things. Notify your school or workplace of your results and follow their instructions regarding return to work/school. Prescriptions: Benzonatate [Benzonatate 100mg cap] 100 mg PO TIDP PRN #30 cap PRN Reason: Cough Transmission Status: Received by [facility] # predniSONE [Prednisone 20mg Tab] 20 mg PO BID 4 Days #8 tab Transmission Status: Received by [facility] # Azithromycin [Z-Bairon 250mg Tab*] 250 mg PO UD DOSE PK #6 tab Transmission Status: Received by [facility] [facility] # Referrals: Jarred Montiel [Primary Care Provider] - Forms: Work/School Release Time of Disposition: 18:05 Medical Decision Making - Medical Records Medical records reviewed: No: I reviewed the patient's medical records. - Rodo Inquiry Pt receiving controlled substance: No Vital Signs: 08/28/21 17:27 08/28/21 18:17 Temperature 98.6 F 98.6 F Temperature Source Oral Pulse Rate 75 Pulse Rate [Left] 75 Respiratory Rate 20 20 Blood Pressure 206/87 H Blood Pressure [Right Arm] 206/87 H Blood Pressure Mean [Right Arm] 126 02 Sat by Pulse Oximetry 99 Orders (Tests/Meds): ORDERS Category Date Time Status Covid-19 Nasal PCR ([facility]) Routine Lab 08/28/21 17:23 Received [facility] [place] HPI - General Stated complaint: cough, covid exp Time Seen by Provider: 08/28/21 17:51 Mode of Arrival: Ambulatory Source of Information: Patient Limitations: No Limitations Description of Symptoms (Recalled from Triage Doc. by RN): pt exposed to covid 08/24. pt c/o a cough. HEENT Symptoms (Recalled from RN notes): No Resp Symptoms (Recalled from RN notes): Yes (cough) Skin Symptoms (Recalled from RN notes): No MS Symptoms (Recalled from RN notes): No Functional Status (Recalled from RN notes): wnl - History of Present Illness Provider Complaint: He states that since yesterday he has been having a worsening cough. He states that he feels ok. He denies any shortness of breath. - Related Data Home Medications Medication Instructions Recorded Confirmed Amlodipine Besylate/Benazepril 1 tab PO DAILY 02/25/18 03/01/19 [Amlodipine-Benazepril 5-20 mg] Aspirin 81 mg PO DAILY 02/25/18 03/01/19 Atorvastatin Calcium [Atorvastatin 80 mg PO DAILY 02/25/18 03/01/19 80mg Tab] Metformin HCl 500 mg PO BID 02/25/18 03/01/19 Metoprolol Succinate [Toprol Xl] 25 tab PO DAILY 02/25/18 03/01/19 Pantoprazole Sodium [Protonix 40mg 40 mg PO DAILY 02/25/18 03/01/19 (granule) packet] Previous Rx's Medication Instructions Recorded Nitroglycerin [Nitrostat 0.4mg SL 0.4 mg SL Q5MINP PRN #1 bottle 10/22/17 Tablet] clindamycin HCL [Clindamycin HCl 300 mg PO Q6 7 Days #28 cap 05/17/19 300mg Cap] Ondansetron [Zofran 4mg ODT] 4 mg PO Q8HP PRN #20 tab.rapdis 09/21/19 Oseltamivir Phosphate [Tamiflu 75 mg PO BID #10 cap 09/21/19 75mg Capsule] Benzonatate [Tessalon Perle 100mg 100 mg PO TID PRN #30 cap 04/25/21 Cap*] Cefdinir [Omnicef 300mg Capsule] 300 mg PO BID #20 cap 04/25/21 Ondansetron [Zofran 4mg ODT] 4 mg PO TIDP PRN #10 tab 04/25/21 Azithromycin [Z-Bairon 250mg Tab*] 250 mg PO UD DOSE PK #6 tab 06/27/21 predniSONE [Prednisone 20mg 20 mg PO BID 4 Days #8 tab 06/27/21 Tab] Azithromycin [Z-P
[2021-08-28 18:17] VITALS: BP 206/87; PULSE 75; RESP 20; TEMP 37
--- NOTE | 2021-08-29 10:45 | PC.NURSE ---
notified pt of positive covid swab result
--- NOTE | 2021-08-29 12:35 | PC.NURSE ---
notified pt of positive covid result at this time
== END 2021-08-28 18:21 | disposition home or self-care (01) ==
PROVIDERS: Emergency Provider Nurse Practitioner Family; PCP Family Medicine
DX: J20.9 Acute bronchitis, unspecified (principal); U07.1 COVID-19; I25.10 Atherosclerotic heart disease of native coronary artery without angina pectoris; E11.9 Type 2 diabetes mellitus without complications; E78.5 Hyperlipidemia, unspecified; K21.9 Gastro-esophageal reflux disease without esophagitis; I10 Essential (primary) hypertension
CPT/HCPCS: G0463; 99202; C9803; U0003; U0005

== ENCOUNTER → 2021-09-01 10:06 | Outpatient (CLI) | payer MEDICARE, SELFPAY ==
[2021-09-01] VITALS (9 sets, daily range): BP systolic 127–166; BP diastolic 71–86; PULSE 62–96; RESP 16–96; TEMP 36.6–38.1; O2SAT 96–100
== END ==
PROVIDERS: PCP Family Medicine; Visit Provider Family Medicine
DX: U07.1 COVID-19 (principal); Z23 Encounter for immunization
CPT/HCPCS: 96365

== ENCOUNTER 2021-10-25 00:17 | Emergency (ER) | payer MEDICARE, SELFPAY ==
[2021-10-25 00:18] VITALS: BP 177/93; PULSE 93; RESP 16; TEMP 37.1; O2SAT 97; BMI 41.2
[2021-10-25 00:55] VITALS: BMI 41.2
--- NOTE | 2021-10-25 00:55 | CT_ITS ---
PROCEDURE INFORMATION: Exam: CT Abdomen And Pelvis Without Contrast Exam date and time: 10/25/2021 12:55 AM Age: 71 years old Clinical indication: Condition or disease; Kidney or ureter condition; Calculus (stone) in kidney; Prior surgery; Surgery type: Right flank and rlq pain. HX kidney stones & removal; Additional info: Abd pain TECHNIQUE: Imaging protocol: Computed tomography of the abdomen and pelvis without contrast. Radiation optimization: All CT scans at this facility use at least one of these dose optimization techniques: automated exposure control; mA and/or kV adjustment per patient size (includes targeted exams where dose is matched to clinical indication); or iterative reconstruction. COMPARISON: ABDPELW/O CT ABD PELVIS W/O CONTRAST 12/01/2015 3:08 PM FINDINGS: Lungs: Unchanged right lung hernia. Patchy ground-glass opacities in the lungs. Heart: Coronary artery disease. Cardiomegaly. Liver: Hepatic steatosis. Gallbladder and bile ducts: Normal. No calcified stones. No ductal dilation. Pancreas: Normal. No ductal dilation. Spleen: Normal. No splenomegaly. Adrenal glands: Normal. No mass. Kidneys and ureters: Right hydronephrosis secondary to a 6 mm calculus in the proximal ureter. Nonobstructing bilateral nephrolithiasis. Stomach and bowel: Unremarkable. No obstruction. No mucosal thickening. Appendix: Unremarkable appendix. Intraperitoneal space: Unremarkable. No free air. No significant fluid collection. Vasculature: Mild atherosclerotic changes of the arteries. Lymph nodes: Unremarkable. No enlarged lymph nodes. Urinary bladder: Unremarkable as visualized. Reproductive: Unremarkable as visualized. Bones/joints: The lumbar spine demonstrates mild degenerative changes at multiple levels. Soft tissues: Tiny fat containing umbilical hernia. IMPRESSION: 1. Right hydronephrosis secondary to a 6 mm calculus in the proximal ureter. 2. Patchy ground-glass opacities in the lungs. Please correlate for evidence of atypical infection, such as COVID-19, versus aspiration. 3. Hepatic steatosis. 4. Nonobstructing bilateral nephrolithiasis.
[2021-10-25 01:03] LABS: Microscopic, Urine URINE MICROSCOPIC (MICROSCOPIC)
[2021-10-25 01:07] LABS: Chloride 107 mmol/L (98-107)
[2021-10-25 01:08] LABS: Sodium 139 mmol/L (136-145)
[2021-10-25 01:10] LABS: Alanine Aminotransferase 28 U/L (12-78); Alkaline Phosphatase 98 U/L (38-126); Aspartate Amino Transferase 30 U/L (17-59); Bilirubin,Total 0.6 mg/dl (0.2-1.3); Blood Urea Nitrogen 19 mg/dl (9-20); Creatinine Clearance Estimated 134 mL/min (50-200); Estimated Glomerular Filt Rate 66 ml/min (>60); GFR (African American) 80 ML/MIN (>60)
[2021-10-25 01:11] LABS: Albumin Level 4.2 g/dl (3.5-5.0); Albumin/Globulin Ratio 1.4 (1.1-1.8); Carbon Dioxide 25 mmol/L (22.0-30.0); Globulin 2.9 g/dL (1.3-3.2); Glucose 136 mg/dl (74-100); Lipase 563 U/L (23-300); Total Protein,Serum 7.1 g/dl (6.3-8.2)
[2021-10-25 01:16] LABS: Basophils # 0.1 K/mm3 (0-0.2); Basophils % 0.8 % (0.1-2.0); C-Reactive Protein 6.3 mg/L (0-4); Eosinophils # 0.3 K/mm3 (0.0-0.4); Eosinophils % 3.2 % (0.1-12.0); Hematocrit 41.4 % (42.0-52.0); Hemoglobin 13.4 g/dL (14.1-18.0); Lymphocytes # 2.2 K/mm3 (0.7-4.5); Lymphocytes % 23.4 % (10-50); Mean Corpuscular HGB Conc 32.4 g/dL (31.8-35.4); Mean Corpuscular Hemoglobin 29.6 pg (27.0-31.2); Mean Corpuscular Volume 91.3 fl (80-94); Mean Platelet Volume 8.9 fl (7.4-10.4); Monocytes # 0.8 K/mm3 (0.1-1.0); Monocytes % 8.4 % (1.7-9.3); Neutrophils # 6.1 K/mm3 (1.8-7.8); Neutrophils % 64.1 % (37.0-80.0); Platelet Count 288 K/mm3 (142-424); Red Blood Count 4.53 M/mm3 (4.60-6.20); Red Cell Distribution Width 14.3 % (11.5-17.5); White Blood Count 9.5 K/mm3 (4.8-10.8)
[2021-10-25 01:17] LABS: Appearance,Urine CLEAR (Clear); Bilirubin,Urine Negative (Negative); Blood, Urine TRACE-I (Negative); Color,Urine YELLOW (Yellow); Glucose,Urine (UA) Negative (Negative); Ketones,Urine Negative (Negative); Leukocyte Esterase,Urine Negative (Negative); Nitrate,Urine Negative (Negative); PH,Urine 6.5 (5.0-8.5); Protein,Urine TRACE (Negative); Urobilinogen,Urine 0.2 EU/dl (0.2)
[2021-10-25 01:23] LABS: Amylase 110 U/L (30-110)
[2021-10-25 01:41] LABS: Bacteria,Urine Trace /lpf; Procalcitonin 0.103 ng/mL (0.0-2.0); WBC,Urine Occasional #/hpf (0-3)
[2021-10-25 01:52] LABS: Erythrocyte Sedimentation Rate 38 mm/hr (0-20)
[2021-10-25 02:01] VITALS: BP 148/68; PULSE 52; O2SAT 95
--- NOTE | 2021-10-25 02:08 | HMH.EDUROGM ---
ED Disposition Clinical Impression: Renal colic on right side Disposition: Home, Self-Care Condition on Discharge: Good Instructions: DI for Flank Pain Additional Instructions: fluids and call urology for follow up Prescriptions: levoFLOXacin [Levaquin 500mg tab] 500 mg PO DAILY #7 tab Transmission Status: Pending to [facility] #[id number] Referrals: Jarred Montiel [Primary Care Provider] - Bruce Aguilar MD [Staff Physician] - - Critical Care Critical Care Time: No Attestation: On 10/25/21, the high probability of a clinically significant, sudden or life threatening deterioration of the following system(s) required my full and direct attention, intervention and personal management. The time I documented below is in addition to time spent performing reported procedures but includes the following listed in this critical care notation. Medical Decision Making - Medical Records Medical records reviewed: Yes: I reviewed the patient's medical records. - Rodo Inquiry Pt receiving controlled substance: No Vital Signs: 10/25/21 00:18 10/25/21 02:01 Temperature 98.7 F Temperature Source Oral Pulse Rate 52 L Pulse Rate [Right] 93 H Respiratory Rate 16 Blood Pressure 148/68 H Blood Pressure [Right Arm] 177/93 H Blood Pressure Mean [Right Arm] 121 02 Sat by Pulse Oximetry 97 95 Oxygen Delivery Method Room Air - Lab Data Lab results reviewed: Yes: I reviewed the patient's lab results. Lab Results 10/25/21 00:39: Urine Color Yellow, Urine Appearance Clear, Urine pH 6.5, Ur Specific [place] 1.020, Urine Protein Trace, Urine Glucose (UA) Negative, Urine Ketones Negative, Urine Blood Trace-i, Urine Nitrate Negative, Urine Bilirubin Negative, Urine Urobilinogen 0.2, Ur Leukocyte Esterase Negative, Urine RBC 3-5, Urine WBC Occasional, Urine Bacteria Trace 10/25/21 00:39: WBC 9.5, RBC 4.53 L, Hgb 13.4 L, Hct 41.4 L, MCV 91.3, MCH 29.6, MCHC 32.4, RDW 14.3, Plt Count 288, MPV 8.9, Neut % (Auto) 64.1, Lymph % (Auto) 23.4, Clay % (Auto) 8.4, Eos % (Auto) 3.2, Baso % (Auto) 0.8, Neut # (Auto) 6.1, Lymph # (Auto) 2.2, Clay # (Auto) 0.8, Eos # (Auto) 0.3, Baso # (Auto) 0.1, ESR 38 H 10/25/21 00:39: Sodium 139, Potassium 4.0, Chloride 107, Carbon Dioxide 25, Anion Gap 11.0, BUN 19, Creatinine 1.10, Estimated Creat Clear 134, Estimated GFR 66, Est GFR ( Amer) 80, Glucose 136 H, Calcium 9.0, Total Bilirubin 0.6, AST 30, ALT 28, Alkaline Phosphatase 98, C-Reactive Protein 6.3 H, Total Protein 7.1, Albumin 4.2, Globulin 2.9, Albumin/Globulin Ratio 1.4 10/25/21 00:39: Amylase 110, Procalcitonin 0.103 10/25/21 00:39: Lipase 563 H Result diagrams: 10/25/21 00:39 10/25/21 00:39 Orders (Tests/Meds): ED MEDICATIONS Generic Name Dose Route Start Last Admin Trade Name Freq PRN Reason Stop Dose Admin Sodium Chloride 1,000 mls @ 999 mls/hr 10/25/21 01:00 10/25/21 01:11 Sod Chlor 0.9% 1000ml Bag IV 10/25/21 02:00 999 mls/hr .Q1H1M HOLLIE Administration Discontinued Medications Generic Name Dose Route Start Last Admin Trade Name Freq PRN Reason Stop Dose Admin Ketorolac Tromethamine 30 mg 10/25/21 00:57 10/25/21 01:11 Ketorolac 30mg/Ml Vial IV 10/25/21 00:58 30 mg ONCE ONE Administration Ondansetron HCl 4 mg 10/25/21 00:57 10/25/21 01:11 Ondansetron 4mg/2ml Vial IV 10/25/21 00:58 4 mg ONCE ONE Administration - CT Data CT Scan: Abdomen, Pelvis Time Received: :[address] Reviewed: Yes: I have viewed the radiologist's interpretation Preliminary Findings: Abnormal (see report ) Medical Decision Narrative: will ask pt to see urology at this time - has rt renal colic Male Urogenital HPI - General Chief complaint: Abdominal Pain Stated complaint: Back pain,nausea, ? kidney stones Time Seen by Provider: 10/25/21 02:08 Mode of Arrival: Ambulatory Source of Information: Patient, Medical Record Limitations: No Limitations Description of Symptoms (Recalled fro
[2021-10-25 02:50] VITALS: BP 132/74; PULSE 63; RESP 16; TEMP 37.1; O2SAT 95
== END 2021-10-25 02:52 | disposition home or self-care (01) ==
PROVIDERS: Emergency Provider Emergency Medicine; PCP Family Medicine
DX: N23 Unspecified renal colic (principal); I25.10 Atherosclerotic heart disease of native coronary artery without angina pectoris; K21.9 Gastro-esophageal reflux disease without esophagitis; I10 Essential (primary) hypertension; E78.5 Hyperlipidemia, unspecified; Z87.891 Personal history of nicotine dependence
CPT/HCPCS: 74176; 80053; 81001; 82150; 83690; 84145; 85025; 85651; 86140; 96365; 96375; 99283; J2405

== ENCOUNTER → 2021-11-21 14:58 | Outpatient (CLI) | payer MEDICARE, SELFPAY ==
--- NOTE | 2021-11-21 | CA_ITS ---
FINAL REPORT TECHNIQUE: Grayscale and color Doppler ultrasound images with graded compression of the deep venous system were obtained from the groin to the calf veins bilaterally. CLINICAL HISTORY: .hX- PE 1 mo ago, Prior HX COVID 08/2021. CAD, Hx chronic pedal edema FINDINGS: The deep venous system is normal. There is no evidence of DVT. Flow and compressibility are normal. IMPRESSION: No evidence of left or right lower extremity DVT. Reviewed, Interpreted and Dictated by Cliff Song MD Transcribed by JOHN Moctezuma Authenticated by Cliff Song MD on 11/21/2021 04:19:25 PM [facility]
== END ==
PROVIDERS: PCP Family Medicine; Visit Provider Family Medicine
DX: I26.94 Multiple subsegmental thrombotic pulmonary emboli without acute cor pulmonale (principal); M79.605 Pain in left leg; M79.604 Pain in right leg
CPT/HCPCS: 93970

== ENCOUNTER → 2022-06-29 08:47 | Outpatient (CLI) | payer MEDICARE, SELFPAY ==
[2022-06-29 09:17] LABS: Microscopic, Urine URINE MICROSCOPIC (MICROSCOPIC)
[2022-06-29 09:33] LABS: Basophils # 0.1 K/mm3 (0-0.2); Basophils % 0.9 % (0.1-2.0); Eosinophils # 0.3 K/mm3 (0.0-0.4); Eosinophils % 4.4 % (0.1-12.0); Hematocrit 43.2 % (42.0-52.0); Hemoglobin 13.9 g/dL (14.1-18.0); Lymphocytes # 2.1 K/mm3 (0.7-4.5); Lymphocytes % 30.6 % (10-50); Mean Corpuscular HGB Conc 32.1 g/dL (31.8-35.4); Mean Corpuscular Hemoglobin 29.7 pg (27.0-31.2); Mean Corpuscular Volume 92.4 fl (80-94); Mean Platelet Volume 9.5 fl (7.4-10.4); Monocytes # 0.4 K/mm3 (0.1-1.0); Monocytes % 6.2 % (1.7-9.3); Neutrophils # 4.1 K/mm3 (1.8-7.8); Neutrophils % 57.9 % (37.0-80.0); Platelet Count 229 K/mm3 (142-424); Red Blood Count 4.68 M/mm3 (4.60-6.20); Red Cell Distribution Width 14.2 % (11.5-17.5)
[2022-06-29 09:53] LABS: Appearance,Urine CLEAR (Clear); Bilirubin,Urine Negative (Negative); Blood, Urine Negative (Negative); Color,Urine YELLOW (Yellow); Glucose,Urine (UA) Negative (Negative); Ketones,Urine Negative (Negative); Leukocyte Esterase,Urine TRACE (Negative); Nitrate,Urine POSITIVE (Negative); Protein,Urine Negative (Negative); Urobilinogen,Urine 0.2 EU/dl (0.2)
[2022-06-29 10:05] LABS: Bacteria,Urine 1+ /lpf; RBC,Urine Occasional #/hpf (0-3)
[2022-06-29 10:05] LABS: Hemoglobin A1C 7.8 % (4.0-6.0)
[2022-06-29 10:47] LABS: Blood Urea Nitrogen 14 mg/dl (9-20); Estimated Glomerular Filt Rate 83 ml/min (>60); GFR (African American) 101 ML/MIN (>60)
[2022-06-29 10:48] LABS: Alanine Aminotransferase 24 U/L (12-78); Albumin Level 4.1 g/dl (3.5-5.0); Albumin/Globulin Ratio 1.8 (1.1-1.8); Alkaline Phosphatase 107 U/L (38-126); Aspartate Amino Transferase 24 U/L (17-59); Bilirubin,Total 0.4 mg/dl (0.2-1.3); Calcium 9.7 mg/dl (8.4-10.2); Carbon Dioxide 26 mmol/L (22.0-30.0); Chol/HDL Ratio 2.1 (1-3.5); Cholesterol 114 mg/dl (140-200); Globulin 2.3 g/dL (1.3-3.2); Glucose 163 mg/dl (74-100); HDL Cholesterol 55 mg/dl (40-60); Total Protein,Serum 6.4 g/dl (6.3-8.2); Triglycerides 105 mg/dl (30-150); VLDL Cholesterol 21 mg/dL (0-40)
[2022-06-29 10:52] LABS: Anion Gap 15.5 mEq/L (5-15); Chloride 105 mmol/L (98-107); Potassium 4.5 mmoL/L (3.5-5.1); Sodium 142 mmol/L (136-145)
[2022-06-29 10:59] LABS: Direct LDL Cholesterol 38.92 mg/dL (100-129)
[2022-06-29 11:05] LABS: Free T4 (Free Thyroxine) 0.79 ng/dl (0.78-2.19)
[2022-06-29 11:19] LABS: Thyroid Stimulating Hormone 1.51 uIU/mL (0.465-4.68)
[2022-06-29 11:29] LABS: Prostate Specific Ag Screen 0.4 ng/ml (0.0-4.0)
== END ==
PROVIDERS: PCP Family Medicine; Visit Provider Family Medicine
DX: E11.9 Type 2 diabetes mellitus without complications (principal); I10 Essential (primary) hypertension; E78.5 Hyperlipidemia, unspecified; R53.83 Other fatigue; E66.9 Obesity, unspecified
CPT/HCPCS: 36415; 80053; 80061; 81001; 82043; 83036; 84439; 84443; 85025; G0103

== ENCOUNTER 2022-08-12 15:25 | Emergency (ER) | payer MEDICARE, SELFPAY ==
[2022-08-12 15:45] VITALS: BMI 26.6
[2022-08-12 15:54] VITALS: BP 165/83; PULSE 63; RESP 20; TEMP 36.8; O2SAT 96; BMI 42.3
--- NOTE | 2022-08-12 15:57 | CT_ITS ---
FINAL REPORT TECHNIQUE: Axial images through the abdomen and pelvis were performed without contrast.This study was performed with techniques to keep radiation doses as low as reasonably achievable, (ALARA). Individualized dose reduction techniques using automated exposure control or adjustment of mA and/or kV according to the patient's size were employed. CLINICAL HISTORY: pain COMPARISON: 10/25/2021 FINDINGS: ABDOMEN: The lung bases are clear. The heart size is normal. Limited images of the liver demonstrate fatty infiltration. The gallbladder is present. The spleen is normal. No adrenal mass is identified. The aorta is normal in caliber. There is no significant free fluid or adenopathy. There are bilateral, nonobstructing renal stones. There is moderate left hydronephrosis with at least 2 obstructing at stones in the proximal left ureter measuring up to 10 mm in greatest dimension. PELVIS: The appendix is normal. The urinary bladder is unremarkable. There is no significant free fluid or adenopathy. IMPRESSION: Two obstructing stones in the proximal left ureter with moderate left hydronephrosis. Reviewed, Interpreted and Dictated by Cliff Song MD Transcribed by Yasmin Lopez Authenticated and [facility]
--- NOTE | 2022-08-12 16:00 | HMH.EDGENADL ---
Discharge Plan Disposition Patient Disposition: Home, Self-Care Condition: Good Prescriptions Prescriptions: New ondansetron 4 mg tablet,disintegrating 4 mg PO Q6H PRN (Reason: nausea and vomiting) Qty: 10 0RF oxycodone-acetaminophen [Percocet] 7.5-325 mg tablet 1 tab PO Q4H PRN (Reason: pain) Qty: 10 0RF No Action nitroglycerin 0.4 MG tablet, sublingual 0.4 mg SL Q5MINP PRN (Reason: Chest Pain) Qty: 1 0RF Rx Instructions: 1 sublingual for chest pain. May repeat every 5 minutes for a total of 3 doses. metformin 500 MG tablet 500 mg PO BID atorvastatin 80 MG tablet 80 mg PO DAILY metoprolol succinate [Toprol XL] 50 MG tablet extended release 24 hr 25 tab PO DAILY amlodipine-benazepril 5 MG-20 capsule 1 tab PO DAILY aspirin 81 MG tablet,chewable 81 mg PO DAILY pantoprazole [Protonix] [address] for susp in packet 40 mg PO DAILY oseltamivir 75 MG capsule 75 mg PO BID Qty: 10 0RF ondansetron 4 MG tablet,disintegrating 4 mg PO Q8HP PRN (Reason: Nausea) Qty: 20 0RF levofloxacin 500 MG tablet 500 mg PO DAILY Qty: 7 0RF clindamycin HCl 300 MG capsule 300 mg PO Q6 7 Days Qty: 28 0RF ondansetron 4 MG tablet,disintegrating 4 mg PO TIDP PRN (Reason: Nausea) Qty: 10 0RF cefdinir 300 MG capsule 300 mg PO BID Qty: 20 0RF benzonatate 100 MG capsule 100 mg PO TID PRN (Reason: Cough) Qty: 30 0RF azithromycin 250 MG tablet 250 mg PO UD DOSE PK Qty: 6 0RF Rx Instructions: Take two (2) tablets today, then one (1) tablet days #2 thru #5 prednisone 20 MG tablet 20 mg PO BID 4 Days Qty: 8 0RF azithromycin 250 MG tablet 250 mg PO UD DOSE PK Qty: 6 0RF Rx Instructions: Take two (2) tablets today, then one (1) tablet days #2 thru #5 benzonatate 100 MG capsule 100 mg PO TIDP PRN (Reason: Cough) Qty: 30 0RF prednisone 20 MG tablet 20 mg PO BID 4 Days Qty: 8 0RF Referrals Follow up/Referrals: Kareen Carmona APRN [Primary Care Provider] - See instructions Activity Restrictions/Add. Instructions Additional Instructions/Restrictions: Follow-up tomorrow morning with your urologist as discussed. Clinical Impressions Clinical Impression: Ureterolithiasis Discharge ED Provider: Kalia Fu General Adult HPI General Chief complaint: PAIN Stated complaint: possible kidney stone, abd and back pain, vomiting Time Seen by Provider: 08/12/22 15:54 Mode of Arrival: Ambulatory Source of Information: Patient and Spouse Limitations: No Limitations Description of Symptoms (Recalled from ER Triage Doc. by RN): pt to ed c/o lower back pain and left flank pain. pt reports the pain started this morning. pt states a hx of kidney stones. History of Present Illness HPI narrative: Patient presents complaint of left flank pain that started earlier today. He notes associated nausea but denies vomiting he denies fever. He describes the pain as moderate to severe and without exacerbating alleviating factors. States he had similar pain in association with kidney stones. Related Data Home Medications Medication Instructions Recorded Confirmed amlodipine 5 mg-benazepril 20 mg 1 tab PO DAILY bp 02/25/18 03/01/19 capsule aspirin 81 mg chewable tablet 81 mg PO DAILY heart. 02/25/18 03/01/19 atorvastatin 80 mg tablet 80 mg PO DAILY Cholesterol 02/25/18 03/01/19 metformin 500 mg tablet 500 mg PO BID type 2diabetes 02/25/18 03/01/19 metoprolol succinate 50 mg 25 tab PO DAILY bp 02/25/18 03/01/19 tablet,extended release 24 hr (Toprol XL) pantoprazole 40 mg granules 40 mg PO DAILY stomach 02/25/18 03/01/19 delayed-release for susp in packet (Protonix) Previous Rx's Medication Instructions Recorded nitroglycerin 0.4 mg sublingual 0.4 mg SL Q5MINP PRN Chest Pain ##1 10/22/17 tablet clindamycin HCl 300 mg capsule 300 mg PO Q6 7 days #28 caps 05/17/19 ondansetron 4 mg disintegrating 4 mg PO
[2022-08-12 16:05] LABS: Microscopic, Urine URINE MICROSCOPIC (MICROSCOPIC)
[2022-08-12 16:09] LABS: Basophils # 0.1 K/mm3 (0-0.2); Basophils % 0.6 % (0.1-2.0); Eosinophils # 0.1 K/mm3 (0.0-0.4); Eosinophils % 0.7 % (0.1-12.0); Hematocrit 44.3 % (42.0-52.0); Hemoglobin 14.3 g/dL (14.1-18.0); Lymphocytes # 1.7 K/mm3 (0.7-4.5); Lymphocytes % 11.4 % (10-50); Mean Corpuscular HGB Conc 32.2 g/dL (31.8-35.4); Mean Corpuscular Hemoglobin 29.5 pg (27.0-31.2); Mean Corpuscular Volume 91.7 fl (80-94); Mean Platelet Volume 9.6 fl (7.4-10.4); Monocytes # 0.9 K/mm3 (0.1-1.0); Neutrophils # 12.1 K/mm3 (1.8-7.8); Neutrophils % 81.2 % (37.0-80.0); Platelet Count 255 K/mm3 (142-424); Red Blood Count 4.83 M/mm3 (4.60-6.20); Red Cell Distribution Width 13.8 % (11.5-17.5); White Blood Count 14.8 K/mm3 (4.8-10.8)
[2022-08-12 16:14] LABS: Appearance,Urine CLEAR (Clear); Bilirubin,Urine Negative (Negative); Blood, Urine 1+ (Negative); Color,Urine YELLOW (Yellow); Glucose,Urine (UA) 3+ (Negative); Ketones,Urine Negative (Negative); Leukocyte Esterase,Urine Negative (Negative); Nitrate,Urine Negative (Negative); PH,Urine 7.5 (5.0-8.5); Protein,Urine TRACE (Negative); Urobilinogen,Urine 0.2 EU/dl (0.2)
[2022-08-12 16:21] LABS: Alanine Aminotransferase 30 U/L (12-78); Albumin Level 4.5 g/dl (3.5-5.0); Albumin/Globulin Ratio 1.6 (1.1-1.8); Alkaline Phosphatase 134 U/L (38-126); Anion Gap 17.4 mEq/L (5-15); Aspartate Amino Transferase 28 U/L (17-59); Bilirubin,Total 0.3 mg/dl (0.2-1.3); Blood Urea Nitrogen 19 mg/dl (9-20); Calcium 9.6 mg/dl (8.4-10.2); Carbon Dioxide 24 mmol/L (22.0-30.0); Chloride 103 mmol/L (98-107); Creatinine Clearance Estimated 73 mL/min (50-200); Estimated Glomerular Filt Rate 66 ml/min (>60); GFR (African American) 80 ML/MIN (>60); Globulin 2.9 g/dL (1.3-3.2); Glucose 240 mg/dl (74-100); Potassium 4.4 mmoL/L (3.5-5.1); Sodium 140 mmol/L (136-145); Total Protein,Serum 7.4 g/dl (6.3-8.2)
[2022-08-12 17:01] VITALS: BP 155/69; PULSE 51; RESP 18; O2SAT 94
[2022-08-12 17:31] VITALS: BP 142/65; PULSE 51; RESP 20; O2SAT 94
[2022-08-12 17:50] VITALS: BP 162/80; PULSE 58; RESP 20; O2SAT 97
--- NOTE | 2022-08-12 17:51 | PC.NURSE ---
rounded on pt at this time. states he is comfortable. no needs voiced
--- NOTE | 2022-08-12 18:00 | PC.NURSE ---
PT IS ESTABLISHED WITH DR ACOSTA [facility] AT [facility] , DR ABAD IS COVERING HE HAS BEEN PAGED
--- NOTE | 2022-08-12 18:14 | PC.NURSE ---
DR ARDON SPEAKING TO DR DE JESUS
[2022-08-12 18:19] LABS: Squamous Epithelial Cell,Urine Occasional #/hpf (0-5)
[2022-08-12 19:00] VITALS: BP 160/76; PULSE 60; RESP 16; TEMP 36.8; O2SAT 94
== END 2022-08-12 19:02 | disposition home or self-care (01) ==
PROVIDERS: Emergency Provider Emergency Medicine; PCP Nurse Practitioner
DX: R10.32 Left lower quadrant pain (principal); M54.50 Low back pain, unspecified; R11.2 Nausea with vomiting, unspecified; R07.9 Chest pain, unspecified; R05.9 Cough, unspecified; Z79.52 Long term (current) use of systemic steroids; Z79.82 Long term (current) use of aspirin; Z79.84 Long term (current) use of oral hypoglycemic drugs; Z79.899 Other long term (current) drug therapy
CPT/HCPCS: 74176; 80053; 81001; 85025; 96360; 96374; 96375; 96376; 99285; J2405

== ENCOUNTER 2022-12-04 10:00 | Emergency (ER) | payer MEDICARE, SELFPAY ==
[2022-12-04 10:10] VITALS: BP 146/59; PULSE 54; RESP 24; TEMP 36.9; O2SAT 97; BMI 40.4
--- NOTE | 2022-12-04 10:17 | XR_ITS ---
FINAL REPORT CLINICAL HISTORY: cough, soa x2 days COMPARISON: 03/10/2021 FINDINGS: Two views of the chest were obtained. The heart size and pulmonary vascularity are within normal limits. The mediastinum is normal. No acute pulmonary abnormality is identified. There is no pneumothorax. The bony thorax is intact. IMPRESSION: No active cardiopulmonary disease. Reviewed, Interpreted and Dictated by Artie New III, MD Transcribed by Alka Parnell Authenticated and [facility]
--- NOTE | 2022-12-04 10:21 | EXP.UTC ---
Discharge Plan Disposition Patient Disposition: Home, Self-Care Condition: Good Prescriptions Prescriptions: New azithromycin [Zithromax] 250 mg tablet 250 mg PO UD DOSE PK Qty: 6 0RF Rx Instructions: Take two (2) tablets today, then one (1) tablet days #2 thru #5 benzonatate [benzonatate] 100 mg capsule 100 mg PO TIDP PRN (Reason: Cough) Qty: 30 0RF methylprednisolone 4 mg Tablets,Dose Pack 4 mg PO DIRECTED Qty: 21 0RF No Action nitroglycerin 0.4 MG tablet, sublingual 0.4 mg SL Q5MINP PRN (Reason: Chest Pain) Qty: 1 0RF Rx Instructions: 1 sublingual for chest pain. May repeat every 5 minutes for a total of 3 doses. metformin 500 MG tablet 500 mg PO BID atorvastatin 80 MG tablet 80 mg PO DAILY metoprolol succinate [Toprol XL] 50 MG tablet extended release 24 hr 25 tab PO DAILY amlodipine-benazepril 5 MG-20 capsule 1 tab PO DAILY aspirin 81 MG tablet,chewable 81 mg PO DAILY pantoprazole [Protonix] [address] for susp in packet 40 mg PO DAILY oseltamivir 75 MG capsule 75 mg PO BID Qty: 10 0RF ondansetron 4 MG tablet,disintegrating 4 mg PO Q8HP PRN (Reason: Nausea) Qty: 20 0RF levofloxacin 500 MG tablet 500 mg PO DAILY Qty: 7 0RF clindamycin HCl 300 MG capsule 300 mg PO Q6 7 Days Qty: 28 0RF ondansetron 4 MG tablet,disintegrating 4 mg PO TIDP PRN (Reason: Nausea) Qty: 10 0RF cefdinir 300 MG capsule 300 mg PO BID Qty: 20 0RF benzonatate 100 MG capsule 100 mg PO TID PRN (Reason: Cough) Qty: 30 0RF azithromycin 250 MG tablet 250 mg PO UD DOSE PK Qty: 6 0RF Rx Instructions: Take two (2) tablets today, then one (1) tablet days #2 thru #5 prednisone 20 MG tablet 20 mg PO BID 4 Days Qty: 8 0RF azithromycin 250 MG tablet 250 mg PO UD DOSE PK Qty: 6 0RF Rx Instructions: Take two (2) tablets today, then one (1) tablet days #2 thru #5 benzonatate 100 MG capsule 100 mg PO TIDP PRN (Reason: Cough) Qty: 30 0RF prednisone 20 MG tablet 20 mg PO BID 4 Days Qty: 8 0RF ondansetron 4 mg tablet,disintegrating 4 mg PO Q6H PRN (Reason: nausea and vomiting) Qty: 10 0RF oxycodone-acetaminophen [Percocet] 7.5-325 mg tablet 1 tab PO Q4H PRN (Reason: pain) Qty: 10 0RF Referrals Follow up/Referrals: Provider,Referral, MD [Primary Care Provider] - See instructions Activity Restrictions/Add. Instructions Additional Instructions/Restrictions: Drink plenty of fluids. Take tylenol or ibuprofen for pain or fever. Take the medications as directed. Follow up with your regular doctor. GO TO THE ER FOR ANY WORSENING SYMPTOMS Clinical Impressions Clinical Impression: Sinusitis, Bronchitis Stand Alone Forms Stand Alone Forms: Work/School Release Instructions Patient Instructions: Sinusitis, DI for Sinusitis Discharge ED Provider: Beto English [facility] General Stated complaint: Persistant cough Mode of Arrival: Ambulatory Source of Information: Patient Limitations: No Limitations Time Seen by Provider: 12/04/22 10:21 Description of Symptoms (Recalled from Triage Doc. by RN): PATIENT C/O COUGH WITH WHITE/CLEAR SPUTUM, SINUS DRAINAGE, LOW-GRADE FEVER, AND LEFT CHEST PAIN WITH COUGH AND DEEP BREATHING X 2 DAYS HEENT Symptoms (Recalled from RN notes): Yes Resp Symptoms (Recalled from RN notes): Yes Skin Symptoms (Recalled from RN notes): No MS Symptoms (Recalled from RN notes): No Functional Status (Recalled from RN notes): WNL Related Data Home Medications Medication Instructions Recorded Confirmed amlodipine 5 mg-benazepril 20 mg 1 tab PO DAILY bp 02/25/18 03/01/19 capsule aspirin 81 mg chewable tablet 81 mg PO DAILY heart. 02/25/18 03/01/19 atorvastatin 80 mg tablet 80 mg PO DAILY Cholesterol 02/25/18 03/01/19 metformin 500 mg tablet 500 mg PO BID type 2diabetes 02/25/18 03/01/19 metoprolol succinate 50 mg 25 tab PO DAILY bp 02/25/18
[2022-12-04 10:31] VITALS: BP 146/59; PULSE 54; RESP 24; TEMP 36.9; O2SAT 97
== END 2022-12-04 11:09 | disposition home or self-care (01) ==
PROVIDERS: Emergency Provider Nurse Practitioner Family
DX: R07.1 Chest pain on breathing (principal); J20.9 Acute bronchitis, unspecified; J01.90 Acute sinusitis, unspecified
CPT/HCPCS: 71046; 99212; 99214; G0463

== ENCOUNTER → 2023-01-06 17:31 | Outpatient (CLI) | payer MEDICARE, SELFPAY ==
--- NOTE | 2023-01-06 17:38 | XR_ITS ---
PROCEDURE INFORMATION: Exam: XR Abdomen Exam date and time: 01/06/2023 5:34 PM Age: 72 years old Clinical indication: Abdominal pain; Flank; Left; Prior surgery; Surgery type: Lithotripsy; Additional info: Kidney stones TECHNIQUE: Imaging protocol: Radiologic exam of the abdomen. Views: Frontal supine view of the abdomen. 1 View. COMPARISON: CT ABDOMEN PELVIS WO CON 08/12/2022 4:56 PM FINDINGS: Gastrointestinal tract: Normal. No bowel dilation. Bones/joints: Unremarkable. Other findings: Contrast projects over the kidneys bilaterally. IMPRESSION: Contrast projects over the kidneys bilaterally.
== END ==
PROVIDERS: Visit Provider Urology
DX: N20.0 Calculus of kidney (principal)
CPT/HCPCS: 74018

== ENCOUNTER 2023-07-14 16:28 | Emergency (ER) | payer MEDICARE, SELFPAY ==
[2023-07-14 16:45] VITALS: BP 146/90; PULSE 66; RESP 20; TEMP 37.3; O2SAT 96; BMI 41.8
--- NOTE | 2023-07-14 16:50 | EXP.UTC ---
Discharge Plan Disposition Patient Disposition: Home, Self-Care Condition: Good Prescriptions Prescriptions: New benzonatate [benzonatate] 100 mg capsule 100 mg PO TIDP PRN (Reason: Cough) Qty: 30 0RF prednisone 10 mg tablet 10 mg PO DIRECTED 9 Days Qty: 21 0RF Rx Instructions: Take 4 tablets daily for 3 days, then take 2 tablets daily for 3 days, then take 1 tablet daily for 3 days, then stop. amoxicillin-pot clavulanate 875-125 mg Tablet 1 tab PO Q12H Qty: 20 0RF Paxlovid 300 mg (150 mg x 2)-100 mg tablets,dose pack See Rx Instructions .ROUTE .COMPLEX Qty: 30 0RF Rx Instructions: take TWO 150 mg tablets of nirmatrelvir with ONE 100 mg tablet of ritonavir twice daily for 5 days No Action metformin 500 MG tablet 1,000 mg PO BID atorvastatin 80 MG tablet 80 mg PO DAILY metoprolol succinate [Toprol XL] 50 MG tablet extended release 24 hr 25 tab PO DAILY amlodipine-benazepril 5 MG-20 capsule 1 tab PO DAILY aspirin 81 MG tablet,chewable 81 mg PO DAILY pantoprazole [Protonix] [address] for susp in packet 40 mg PO DAILY Referrals Follow up/Referrals: Kareen Carmona APRN [Primary Care Provider] - See instructions Activity Restrictions/Add. Instructions Additional Instructions/Restrictions: Drink plenty of fluids. Take tylenol or ibuprofen for pain or fever. Take the medications as directed. Follow up with your regular doctor. GO TO THE ER FOR ANY WORSENING SYMPTOMS Clinical Impressions Clinical Impression: COVID-19 Instructions Patient Instructions: Acute Bronchitis, DI for Acute Bronchitis Discharge ED Provider: Beto English [facility] [place] HPI General Stated complaint: chills, cough, upset stomach, congestion Time Seen by Provider: 07/14/23 16:50 History of Present Illness Provider Complaint: He states that for the past 2 days he has had chest congestion, cough, fever, and malaise. Related Data Home Medications Medication Instructions Recorded Confirmed amlodipine 5 mg-benazepril 20 mg 1 tab PO DAILY bp 02/25/18 07/14/23 capsule aspirin 81 mg chewable tablet 81 mg PO DAILY heart. 02/25/18 07/14/23 atorvastatin 80 mg tablet 80 mg PO DAILY Cholesterol 02/25/18 07/14/23 metformin 500 mg tablet 1,000 mg PO BID type 2diabetes 02/25/18 07/14/23 metoprolol succinate 50 mg 25 tab PO DAILY bp 02/25/18 07/14/23 tablet,extended release 24 hr (Toprol XL) pantoprazole 40 mg granules 40 mg PO DAILY stomach 02/25/18 07/14/23 delayed-release for susp in packet (Protonix) Previous Rx's Medication Instructions Recorded amoxicillin 875 mg-potassium 1 tab PO Q12H #20 tabs 07/14/23 clavulanate 125 mg tablet benzonatate 100 mg capsule 100 mg PO TIDP PRN Cough #30 caps 07/14/23 prednisone 10 mg tablet 10 mg PO DIRECTED 9 days #21 07/14/23 tabs nirmatrelvir 300 mg (150 mg See Rx Instructions PO .COMPLEX 07/15/23 x2)-ritonavir 100 mg tablet,dose #30 tabs pack (Paxlovid) Allergies Allergy/AdvReac Type Severity Reaction Status Date / Time No Known Drug Allergies Allergy Unknown Verified 02/25/18 09:26 [facility] Disclaimer: The information contained in this section may have been updated after the patient was seen, as this information can be updated by other users. Medical History (Updated 07/15/23 @ 09:54 by Beto English APRN) Diabetes mellitus, type 2 History of gastroesophageal reflux (GERD) History of heart attack Hyperlipidemia Hypertension Kidney stone Surgical History (Updated 07/14/23 @ 16:54 by Hyun Haywood RN) History of cardiac catheterization History of heart artery stent Social History Smoking Status: Never smoker second hand exposure: No alcohol intake: never current occupational status: employed Travel in the last 8 weeks: None household members: spouse housing: house caffeine: Yes RO
[2023-07-14 17:10] VITALS: BP 146/90; PULSE 66; RESP 20; TEMP 37.3; O2SAT 96
== END 2023-07-14 17:12 | disposition home or self-care (01) ==
PROVIDERS: Emergency Provider Nurse Practitioner Family; PCP Nurse Practitioner
DX: U07.1 COVID-19 (principal); E11.9 Type 2 diabetes mellitus without complications; K21.9 Gastro-esophageal reflux disease without esophagitis; E78.5 Hyperlipidemia, unspecified; I10 Essential (primary) hypertension; Z95.5 Presence of coronary angioplasty implant and graft; Z79.84 Long term (current) use of oral hypoglycemic drugs
CPT/HCPCS: 87635; 99212; 99214; G0463

== ENCOUNTER 2023-10-04 22:19 | Emergency (ER) | payer MEDICARE, SELFPAY ==
[2023-10-04 22:29] VITALS: BP 204/96; PULSE 53; RESP 20; TEMP 36.5; O2SAT 96; BMI 41.2
[2023-10-04 22:37] VITALS: BP 191/94; PULSE 54; O2SAT 95
[2023-10-04 23:13] VITALS: BP 179/96; PULSE 49; RESP 15; O2SAT 93
[2023-10-04 23:21] LABS: Coronavirus 19, PCR Not Detected (NotDetected); Influenza A, PCR Not Detected (NotDetected); Influenza B, PCR Not Detected (NotDetected)
[2023-10-04 23:22] LABS: Basophils # 0.1 K/mm3 (0-0.2); Basophils % 0.7 % (0.1-2.0); Eosinophils # 0.2 K/mm3 (0.0-0.4); Eosinophils % 3.5 % (0.1-12.0); Hematocrit 40.2 % (42.0-52.0); Hemoglobin 13.5 g/dL (14.1-18.0); Lymphocytes # 2.2 K/mm3 (0.7-4.5); Lymphocytes % 32.3 % (10-50); Mean Corpuscular HGB Conc 33.6 g/dL (31.8-35.4); Mean Corpuscular Hemoglobin 30.2 pg (27.0-31.2); Mean Corpuscular Volume 89.7 fl (80-94); Mean Platelet Volume 9.4 fl (7.4-10.4); Monocytes # 0.4 K/mm3 (0.1-1.0); Monocytes % 6.5 % (1.7-9.3); Neutrophils # 3.9 K/mm3 (1.8-7.8); Platelet Count 191 K/mm3 (142-424); Red Blood Count 4.48 M/mm3 (4.60-6.20); Red Cell Distribution Width 13.8 % (11.5-17.5); White Blood Count 6.8 K/mm3 (4.8-10.8)
--- NOTE | 2023-10-04 23:25 | ECG_ITS ---
APPROVED REPORT Exam: Resting ECG HR:51 bpm ECG Measurements Heart Rate 51 AXES LA 169 P 23 QRSd 173 QRS -50 QT 398 T 32 QTc 376 Conclusion SINUS BRADYCARDIA RIGHT BUNDLE BRANCH BLOCK [120+ ms QRS DURATION, UPRIGHT V1, 40+ ms S IN I/aVL/V4/V5/V6] LEFT ANTERIOR FASCICULAR BLOCK [QRS AXIS <= -45, QR IN I, RS IN II] ABNORMAL ECG UNCONFIRMED REPORT Electronically signed by : Kris Chaudhary MD 10/05/2023 09:01:56
[2023-10-04 23:27] LABS: Chloride 107 mmol/L (98-107); Potassium 3.7 mmoL/L (3.5-5.1); Sodium 138 mmol/L (136-145)
[2023-10-04 23:29] LABS: Blood Urea Nitrogen 16 mg/dl (9-20); Creatinine Clearance Estimated 143 mL/min (50-200); Estimated Glomerular Filt Rate 83 ml/min (>60); GFR (African American) 101 ML/MIN (>60)
--- NOTE | 2023-10-04 23:29 | HMH.EDGENADL ---
Discharge Plan Disposition Patient Disposition: Home, Self-Care Condition: Good Prescriptions Prescriptions: New amlodipine-benazepril [Lotrel] 10-40 mg capsule 1 cap PO DAILY Qty: 30 1RF No Action metformin 500 MG tablet 1,000 mg PO BID atorvastatin 80 MG tablet 80 mg PO DAILY metoprolol succinate [Toprol XL] 50 MG tablet extended release 24 hr 25 tab PO DAILY amlodipine-benazepril 5 MG-20 capsule 1 tab PO DAILY aspirin 81 MG tablet,chewable 81 mg PO DAILY pantoprazole [Protonix] 40 MG granules for susp in packet 40 mg PO DAILY Referrals Follow up/Referrals: Kareen Carmona APRN [Primary Care Provider] - See instructions Activity Restrictions/Add. Instructions Additional Instructions/Restrictions: We are doubling your dose of your amlodipine?benazepril. Please keep a log of your blood pressures at home. I recommend taking it twice a day. 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 It may take some time for your blood pressure to respond to these medication changes. Please follow-up with your primary care provider. Please return to the emergency department if you develop any new or worsening symptoms or become concerned for your health, specifically if you have headache chest pain or shortness of breath associated with markedly elevated blood pressures. Clinical Impressions Clinical Impression: Asymptomatic hypertension Instructions Patient Instructions: DI for High Blood Pressure Discharge ED Provider: Toby Marsh Adult HPI General Chief complaint: Recheck/Abnormal Lab/Rx Stated complaint: high blood pressure Time Seen by Provider: 10/04/23 22:34 Mode of Arrival: Ambulatory Source of Information: Patient Limitations: No Limitations Description of Symptoms (Recalled from ER Triage Doc. by RN): 73 year old male with complaints of high blood pressure readings at home. Patient states last one was one hour prior to arrival and it read 201/114. Symptoms of headache, and ears ringing . History of Present Illness HPI narrative: 73-year-old male, history of coronary artery disease, hypertension, obesity presents with concerns for high blood pressure. He reports that his blood pressure has been as high as 200 systolic at home. Reports that his blood pressure is normally less than 150 systolic. He reports no chest pain, no headache, no vision changes, no shortness of breath out of normal for him. He reports no recent fever or illness. Denies any abdominal pain. He does report that he can feel his ears ringing, but does not describe any pain. He is on amlodipine benazepril daily, was previously on metoprolol but was taken off it due to bradycardia. Given his elevated blood pressure today, they took a half dose. Related Data Home Medications Medication Instructions Recorded Confirmed amlodipine 5 mg-benazepril 20 mg 1 tab PO DAILY bp 02/25/18 10/04/23 capsule aspirin 81 mg chewable tablet 81 mg PO DAILY heart. 02/25/18 10/04/23 atorvastatin 80 mg tablet 80 mg PO DAILY Cholesterol 02/25/18 10/04/23 metformin 500 mg tablet 1,000 mg PO BID type 2diabetes 02/25/18 10/04/23 metoprolol succinate 50 mg 25 tab PO DAILY bp 02/25/18 10/04/23 tablet,extended release 24 hr (Toprol XL) pantoprazole 40 mg granules 40 mg PO DAILY stomach 02/25/18 10/04/23 delayed-release for susp in packet (Protonix) Previous Rx's Medication Instructions Recorded amlodipine 10 mg-benazepril 40 mg 1 cap PO DAILY #30 caps 10/04/23 capsule (Lotrel) Allergies Allergy/AdvReac Type Severity Reaction Status Date / Time No Known Drug Allergies Allergy Unknown Verified 02/25/18 09:26 [facility] Disclaimer: The information contained in this section may have been updated after the patient was seen, as this information can be updated by other users. Medical History (Updated 10/05/23 @ 00:30 by Toby Marsh MD) Diabetes mellitus, type 2 History of gastroesophageal reflux (GERD) History of heart attack Hyperlipidemia Hypertension Kidney stone Surgical History (Updated 07/14/23 @ 16:54 by Hyun Haywood RN) History of cardiac catheterization History of heart artery stent Social History Smoking Status: Never smoker second hand exposure: No alcohol intake: never current occupational status: employed Travel in the last 8 weeks: None household members: spouse housing: house caffeine: Yes ROS Obtained: Yes All systems reviewed & no additional complaints except as documented Physical Exam General General appearance: alert and in no apparent distress Head Head exam: atraumatic and normocephalic Eye Eye exam: Present normal appearance, PERRL and EOMI ENT ENT exam: Present normal oropharynx and normal external ear exam Neck Neck exam: Present normal inspection and full ROM Chest Chest inspection: Present normal inspection and symmetric chest wall rise; Absent tenderness Respiratory Respiratory exam: Present normal lung sounds bilaterally; Absent respiratory distress Cardiovascular Cardiovascular exam: Present regular rate and normal rhythm Abdominal Exam Abdominal exam: Present soft; Absent distention, tenderness or guarding Extremities Exam Extremities exam: Present normal inspection and edema (Mild bilateral lower extremity, may be developing chronic venous stasis changes in the left lower extremity); Absent joint swelling Back Exam Back exam: Present normal inspection; Absent tenderness Neurological Exam Neurological exam: Present alert and oriented X3; Absent motor sensory deficit Psychiatric Psychiatric exam: Present normal affect and normal mood Skin Skin exam: Present warm, dry and normal color Lymphatic Lymphatic Findings: no adenopathy Medical Decision Making Medical Records Medical records reviewed: Yes I reviewed the patient's medical records. Rodo Inquiry Pt receiving controlled substance: No Rodo was queried for this patient: No Vital Signs: 10/04/23 22:29 10/04/23 22:37 10/04/23 23:13 Temperature 97.7 F Temperature Source Oral Pulse Rate 54 L 49 L Pulse Rate [Left Radial] 53 L Respiratory Rate 20 15 Blood Pressure 191/94 H 179/96 H Blood Pressure [Right Arm] 204/96 H Blood Pressure Mean [Right Arm] 132 Blood Pressure Source [Right Arm] Automatic Cuff Blood Pressure Position [Right Arm] Sitting 02 Sat by Pulse Oximetry 96 95 93 L Oxygen Delivery Method Room Air 10/04/23 23:31 10/05/23 00:01 10/05/23 00:37 Temperature 98.0 F Temperature Source Oral Pulse Rate 48 L 49 L 50 L Pulse Rate [Left Radial] Respiratory Rate 15 12 18 Blood Pressure 177/94 H 177/97 H 169/103 H Blood Pressure [Right Arm] Blood Pressure Mean [Right Arm] Blood Pressure Source [Right Arm] Blood Pressure Position [Right Arm] 02 Sat by Pulse Oximetry 92 L 93 L Oxygen Delivery Method Lab Data Lab results reviewed: Yes I reviewed the patient's lab results. Lab Results 10/04/23 23:13: WBC 6.8, RBC 4.48 L, Hgb 13.5 L, Hct 40.2 L, MCV 89.7, MCH 30.2, MCHC 33.6, RDW 13.8, Plt Count 191, MPV 9.4, Neut % (Auto) 57.0, Lymph % (Auto) 32.3, [place] % (Auto) 6.5, Eos % (Auto) 3.5, Baso % (Auto) 0.7, Neut # (Auto) 3.9, Lymph # (Auto) 2.2, [place] # (Auto) 0.4, Eos # (Auto) 0.2, Baso # (Auto) 0.1, Sodium 138, Potassium 3.7, Chloride 107, Carbon Dioxide 23, Anion Gap 11.7, BUN 16, Creatinine 0.90, Estimated Creat Clear 143, Estimated GFR 83, Est GFR ( Amer) 101, Glucose 172 H, Calcium 8.4, Total Bilirubin 0.6, AST 29, ALT 36, Alkaline Phosphatase 102, Troponin I < 0.01, NT-Pro-B Natriuret Pep 154 H, Total Protein 6.3, Albumin 3.7, Globulin 2.6, Albumin/Globulin Ratio 1.4, SARS-CoV-2 (PCR) Not detected, Influenza A Untype (PCR) Not detected, Influenza Type B (PCR) Not detected 10/05/23 00:03: Urine Color Yellow, Urine Appearance Clear, Urine pH 6.0, Ur Specific [place] 1.025, Urine Protein 1+, Urine Glucose (UA) 2+, Urine Ketones Negative, Urine Blood Negative, Urine Nitrate Negative, Urine Bilirubin Negative, Urine Urobilinogen 1.0, Ur Leukocyte Esterase Negative, Urine RBC None, Urine WBC Occasional, Ur Squamous Epith Cells Occasional, Urine Bacteria None 10/04/23 23:13 10/04/23 23:13 Orders (Tests/Meds): ED MEDICATIONS Discontinued Medications Generic Name Dose Route Start Last Admin Trade Name Freq PRN Reason Stop Dose Admin Acetaminophen 1,000 mg 10/04/23 22:55 10/05/23 00:38 Acetaminophen 500mg Tab PO 10/04/23 22:56 Not Given ONCE ONE ORDERS Category Date Time Status BNP [Brain Natriuretic Peptide] Stat Lab 10/04/23 23:13 Completed CBC w/Auto Diff [Complete Blood Count Auto Diff] Stat Lab 10/04/23 23:13 Completed CMP [Comprehensive Metabolic Panel] Stat Lab 10/04/23 23:13 Completed Rapid PCR Covid and Flu A/B Stat Lab 10/04/23 23:13 Completed Troponin I Q3H Lab 10/04/23 23:13 Completed Troponin I Q3H Lab 10/05/23 02:00 Ordered UA [Urinalysis and Microscopic] Stat Lab 10/05/23 00:03 Completed Medical Decision Narrative: 73-year-old male with history of coronary artery disease, [id number] diabetes and hypertension presents with high blood pressure at home with systolics between 160s and 200 without symptoms. history was obtained via conversation with patient, family, chart review. On arrival, patient is afebrile, hypertensive with systolics in the 190s, diastolic less than 100, moving all extremities spontaneously. Full physical exam performed and significant for mild bilateral pitting edema stable from baseline per patient Differential includes but is not limited to asymptomatic hypertension, hypertensive urgency, hypertensive emergency. Workup initiated including CBC CMP troponin UA COVID flu. On re-evaluation, patient [remains afebrile, HD stable.] Blood pressure improving, systolics in the 170s. Laboratory workup independently interpreted by me and significant for negative troponin, minimally elevated BNP, creatinine at baseline, normal renal function, negative COVID flu. Patient does have 1+ protein in urine, has had trace urine in the past. EKG independently interpreted by me and significant for sinus rhythm, rate of 51, right bundle branch block noted. Given patient history, exam and workup, patient's presentation most likely represents asymptomatic hypertension. Extensive discussion was had with patient regarding symptoms. He was encouraged to follow-up with his PCP or return for development of headache chest pain etc. Patient discharged in stable condition, blood pressure in the 170s systolic at discharge. Procedures Risk/Benefits of Procedure(s) Were Explained: Yes Critical Care Critical Care Time Critical Care Time: No
[2023-10-04 23:30] LABS: Alanine Aminotransferase 36 U/L (12-78); Albumin Level 3.7 g/dl (3.5-5.0); Albumin/Globulin Ratio 1.4 (1.1-1.8); Alkaline Phosphatase 102 U/L (38-126); Anion Gap 11.7 mEq/L (5-15); Aspartate Amino Transferase 29 U/L (17-59); Bilirubin,Total 0.6 mg/dl (0.2-1.3); Calcium 8.4 mg/dl (8.4-10.2); Carbon Dioxide 23 mmol/L (22.0-30.0); Globulin 2.6 g/dL (1.3-3.2); Glucose 172 mg/dl (74-100); Total Protein,Serum 6.3 g/dl (6.3-8.2)
[2023-10-04 23:31] VITALS: BP 177/94; PULSE 48; RESP 15; O2SAT 92
[2023-10-04 23:39] LABS: NT Pro Brain Natriuretic Pep. 154 pg/mL (0-125)
[2023-10-04 23:42] LABS: Troponin I < 0.01 ng/ml (0.00-0.034)
[2023-10-05 00:01] VITALS: BP 177/97; PULSE 49; RESP 12; O2SAT 93
[2023-10-05 00:11] LABS: Microscopic, Urine URINE MICROSCOPIC (MICROSCOPIC)
[2023-10-05 00:12] LABS: Appearance,Urine CLEAR (Clear); Bilirubin,Urine Negative (Negative); Blood, Urine Negative (Negative); Color,Urine YELLOW (Yellow); Glucose,Urine (UA) 2+ (Negative); Ketones,Urine Negative (Negative); Leukocyte Esterase,Urine Negative (Negative); Nitrate,Urine Negative (Negative); Protein,Urine 1+ (Negative); Specific Gravity, Urine 1.025 (1.005-1.030)
[2023-10-05 00:18] LABS: Squamous Epithelial Cell,Urine Occasional #/hpf (0-5); WBC,Urine Occasional #/hpf (0-3)
[2023-10-05 00:37] VITALS: BP 169/103; PULSE 50; RESP 18; TEMP 36.7
== END 2023-10-05 00:46 | disposition home or self-care (01) ==
PROVIDERS: Emergency Provider Emergency Medicine; PCP Nurse Practitioner
DX: R51.9 Headache, unspecified (principal); I10 Essential (primary) hypertension; I25.10 Atherosclerotic heart disease of native coronary artery without angina pectoris; I45.19 Other right bundle-branch block
CPT/HCPCS: 80053; 81001; 83880; 84484; 85025; 87636; 93005; 99285

== ENCOUNTER → 2023-12-19 15:54 | Outpatient (CLI) | payer MEDICARE, SELFPAY | LOC: SL 15:55 | PROVIDERS: PCP Nurse Practitioner; Visit Provider Nurse Practitioner Family | DX: G47.33 Obstructive sleep apnea (adult) (pediatric) (principal) | CPT/HCPCS: G0399 ==

== ENCOUNTER 2024-06-04 07:59 | Outpatient (CLI) | payer MEDICARE, SELFPAY ==
--- NOTE | 2024-06-04 08:03 | CA_ITS ---
FINAL REPORT TECHNIQUE: Color Doppler, duplex Doppler and compression sonography of the right lower extremity venous system was performed. CLINICAL HISTORY: EDEMA RT CALF,PT HAS KNOT AT BASE OF RIGHT PATELLA BEEN THERE FOR AWHILE PT RECENTLY FELL AND HIT KNOW AND IT IS SORE COMPARISON: None FINDINGS: There is no evidence of deep venous thrombosis from the level of the groin to the calf. The veins are patent and compressible. There is an infrapatellar mass present, 3.9 x 3.1 cm in size, that is a presumed hematoma in this patient with known trauma. IMPRESSION: No evidence of deep venous thrombosis right lower extremity. Infrapatellar 3.9 x 3.1 cm focal mass present, presumed hematoma in a patient with a history of trauma. Reviewed, Interpreted and Dictated by Artie New III, MD Transcribed by Vicki Lassiter Authenticated and [facility]
--- NOTE | 2024-06-04 08:47 | XR_ITS ---
FINAL REPORT CLINICAL HISTORY: LBP COMPARISON: None FINDINGS: The vertebrae are normal height. Alignment is within normal limits. Moderate degenerative change with multilevel osteophytes is present in the lumbar spine. Facet arthropathy is noted at multiple levels. Mild vascular calcifications are present. There is no instability with flexion or extension. IMPRESSION: Moderate degenerative change with multilevel osteophytes and facet arthropathy is present. No instability with flexion or extension. Reviewed, Interpreted and Dictated by Artie New III, MD Transcribed by Vicki Lassiter Authenticated and [facility]
== END 2024-06-04 23:59 | disposition home or self-care (01) ==
LOC: RT 08:00
PROVIDERS: PCP Nurse Practitioner; Visit Provider Nurse Practitioner
DX: M79.661 Pain in right lower leg (principal); M54.50 Low back pain, unspecified
CPT/HCPCS: 72110; 93971

== ENCOUNTER 2024-07-29 07:44 | Outpatient (RCR) | payer MEDICARE, SELFPAY | END 2024-07-29 23:59 | disposition home or self-care (01) | LOC: PT 07:44 | PROVIDERS: Visit Provider Orthopaedic Surgery | DX: M47.816 Spondylosis without myelopathy or radiculopathy, lumbar region (principal); M54.50 Low back pain, unspecified; M25.551 Pain in right hip | CPT/HCPCS: 97163 ==

== ENCOUNTER 2024-08-23 08:45 | Outpatient (CLI) | payer MEDICARE, SELFPAY ==
--- NOTE | 2024-08-23 08:49 | MR_ITS ---
FINAL REPORT TECHNIQUE: Multiplanar and multisequence imaging of the lumbar spine was obtained without contrast. CLINICAL HISTORY: right hip pain and lower back pain FINDINGS: There is normal alignment of the lumbar vertebral bodies. Vertebral body height is preserved. The spinal cord ends at the level of L1. There is normal signal intensity within the substance of the distal spinal cord. There is a component of developmental central canal stenosis. No acute bone marrow edema or pathologic marrow replacement. No acute paraspinal abnormality is identified. L1-2: There is mild facet osteoarthropathy without focal disc herniation, central canal stenosis or neuroforaminal narrowing. L2-3: Annular disc bulge with degenerative endplate changes and facet osteoarthropathy. There is moderate central canal stenosis with moderate right and mild left neuroforaminal narrowing. L3-4: Annular disc bulge with degenerative endplate changes and facet osteoarthropathy. There is moderate central canal stenosis with mild right and moderate to severe left neuroforaminal narrowing. L4-5: Annular disc bulge with degenerative endplate changes and facet osteoarthropathy. There is severe central canal stenosis with moderate to severe bilateral, left greater than right neuroforaminal narrowing. L5-S1: Annular disc bulge with degenerative endplate changes and facet osteoarthropathy. There is mild central canal stenosis and severe bilateral neuroforaminal narrowing. 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 Degenerative disc disease with foraminal narrowing as above, most pronounced at L5-S1. Reviewed, Interpreted and Dictated by Anaid Solorzano MD Transcribed by Yasmin Lopez Authenticated and . [facility]
--- NOTE | 2024-08-23 09:00 | XR_ITS ---
PROCEDURE INFORMATION: Exam: XR Orbits, MR Screening Exam date and time: 08/23/2024 9:02 AM Age: 74 years old Clinical indication: Screening exam; R/O foreign body for mri clearance; Additional info: Rule out foreign body for MR TECHNIQUE: Imaging protocol: XR of the orbits. Exam was performed for MR screening. Views: 1 or 2 views COMPARISON: CT HEAD/BRAIN WO CON 03/10/2021 10:50 PM FINDINGS: Sinuses: Well aerated. No opacification. Bones/joints: No fracture. Soft tissues: Unremarkable. Radiopaque device or foreign body: None. No evidence of device or foreign body. No visible contraindication for MRI on this exam. IMPRESSION: No visible contraindication to MRI on this exam.
== END 2024-08-23 23:59 | disposition home or self-care (01) ==
LOC: RAD 08:45
PROVIDERS: PCP Nurse Practitioner; Visit Provider Orthopaedic Surgery
DX: M54.50 Low back pain, unspecified (principal); Z03.823 Encounter for observation for suspected inserted (injected) foreign body ruled out
CPT/HCPCS: 70200; 72148

== ENCOUNTER 2024-09-27 10:04 | Emergency (ER) | payer MEDICARE, SELFPAY ==
[2024-09-27 10:50] VITALS: BP 142/68; PULSE 64; RESP 22; TEMP 36.8; O2SAT 94; BMI 41.2
--- NOTE | 2024-09-27 11:10 | ED_ITS ---
Discharge Plan Disposition Patient Disposition: Home, Self-Care Condition: Good Prescriptions Prescriptions: New benzonatate 100 mg capsule 100 mg PO TID PRN (Reason: cough) Qty: 30 0RF guaifenesin [Mucinex] 600 mg tablet extended release 12hr 600 mg PO BID PRN (Reason: cough/congestion) Qty: 20 0RF azithromycin [Zithromax Z-Bairon] 250 mg tablet See Rx Instructions .ROUTE .COMPLEX 5 Days Qty: 6 0RF Rx Instructions: For 250 mg dose pack: take 500 mg today (day 1), then 250 mg for 4 days (days 2-5) ondansetron 4 mg tablet,disintegrating 4 mg PO Q8H PRN (Reason: nausea and vomiting) Qty: 6 0RF No Action escitalopram oxalate [Lexapro] 5 mg tablet 5 mg PO DAILY furosemide [Lasix] 20 mg tablet 20 mg PO DAILY potassium chloride 10 mEq tablet extended release 10 meq PO DAILY zinc sulfate [Orazinc] 50 mg zinc (220 mg) capsule 50 mg PO DAILY cholecalciferol (vitamin D3) 125 mcg (5,000 unit) capsule 125 mcg PO DAILY hydralazine 25 mg tablet 100 mg PO BID glipizide 5 mg tablet 5 mg PO BID amlodipine-benazepril 10-40 mg capsule 1 cap PO DAILY metformin 500 MG tablet 1,000 mg PO BID atorvastatin 80 MG tablet 80 mg PO DAILY aspirin 81 MG tablet,chewable 81 mg PO DAILY pantoprazole [Protonix] [address] for susp in packet 40 mg PO DAILY amlodipine-benazepril 10-40 mg capsule 1 cap PO DAILY Patient Comments: TAKE 1 CAPSULE BY MOUTH 1 TIME DAILY Referrals Follow up/Referrals: Kareen Carmona APRN [Primary Care Provider] - See instructions Activity Restrictions/Add. Instructions Additional Instructions/Restrictions: * Start antibiotic today. Be sure to complete entire prescription even if feeling better * Monitor temp. Tylenol every 4 hours as needed and / or ibuprofen every 6 hours as needed ( As long as your primary care physician has told you that it ok to take both. For fever/aches/pains ER if no less than 101 despite Tylenol or Motrin * Humidifier/vaporizer or hot steamy shower * Mucinex during the day for your cough and cough suppressant only at night. Be sure to drink lots of water. *Tessalon Perles will not cause drowsiness but use at bedtime to help stop cough so that you may get some rest. *Start steroid today. Helps with inflammation therefore, cough and wheezing. Follow directions on the package. Reviewed side effects. Patient reports taking them before. Follow up IMMEDIATELY for new or worsening of symptoms OR no noticeable improvement over the next 48-72 hours. 911 immediately for any life threatening symptoms such as chest pain or difficulty breathing Clinical Impressions Clinical Impression: Bronchitis Sinusitis Qualifiers: Sinusitis location: unspecified location Chronicity: unspecified Qualified Code(s): J32.9 - Chronic sinusitis, unspecified Instructions Patient Instructions: Acute Bronchitis, DI for Sinusitis Print Language Print Language: Burundian Discharge ED Provider: Katja Short [facility] General Stated complaint: cough, congestion, sinus press/Headache Mode of Arrival: Ambulatory Source of Information: Patient Limitations: No Limitations Time Seen by Provider: 09/27/24 11:10 Description of Symptoms (Recalled from Triage Doc. by RN): PATIENT C/O PRODUCTIVE COUGH, CONGESTION, AND SINUS PRESSURE/DRAINAGE X 1 WEEK HEENT Symptoms (Recalled from RN notes): Yes Resp Symptoms (Recalled from RN notes): Yes Skin Symptoms (Recalled from RN notes): No MS Symptoms (Recalled from RN notes): No Functional Status (Recalled from RN notes): WNL History of Present Illness Provider Complaint: Patient states that he has been having sinus congestion and pressure for over a week and cough that is productive at times States that the cough is keeping him up at night and seems to be getting worse so he came in to get checked Related Data Home Medications ?Medication ?Instructions ?Recorded ?Confirmed aspirin 81 mg chewable tablet 81 mg PO DAILY heart. 02/25/18 09/27/24 atorvastatin 80 mg tablet 80 mg PO DAILY Cholesterol 02/25/18 09/27/24 metformin 500 mg tablet 1,000 mg PO BID type 2diabetes 02/25/18 09/27/24 pantoprazole 40 mg granules 40 mg PO DAILY stomach 02/25/18 09/27/24 delayed-release for susp in packet (Protonix) cholecalciferol (vitamin D3) 125 125 mcg PO DAILY 12/03/23 09/27/24 mcg (5,000 unit) capsule escitalopram oxalate 5 mg tablet 5 mg PO DAILY 12/03/23 09/27/24 (Lexapro) furosemide 20 mg tablet (Lasix) 20 mg PO DAILY 12/03/23 09/27/24 potassium chloride 10 mEq 10 meq PO DAILY 12/03/23 09/27/24 tablet,extended release zinc sulfate 50 mg zinc (220 mg) 50 mg PO DAILY 12/03/23 09/27/24 capsule (Orazinc) amlodipine 10 mg-benazepril 40 mg 1 cap PO DAILY 01/08/24 03/18/24 capsule hydralazine 25 mg tablet 100 mg PO BID 01/08/24 09/27/24 glipizide 5 mg tablet 5 mg PO BID 03/18/24 09/27/24 amlodipine 10 mg-benazepril 40 mg 1 cap PO DAILY 09/27/24 09/27/24 capsule Previous Rx's ?Medication ?Instructions ?Recorded azithromycin 250 mg tablet See Rx Instructions PO .COMPLEX 5 09/27/24 (Zithromax Z-Bairon) days #6 tabs benzonatate 100 mg capsule 100 mg PO TID PRN cough #30 caps 09/27/24 guaifenesin 600 mg tablet, 600 mg PO BID PRN cough/congestion 09/27/24 extended release 12 hr (Mucinex) #20 tabs ondansetron 4 mg disintegrating 4 mg PO Q8H PRN nausea and 09/27/24 tablet vomiting #6 tabs Allergies Allergy/AdvReac Type Severity Reaction Status Date / Time No Known Drug Allergies Allergy Unknown Verified 03/18/24 09:03 Worker's Comp Is this a Worker's Comp case?: No [facility] Disclaimer: The information contained in this section may have been updated after the patient was seen, as this information can be updated by other users. Medical History (Updated 09/27/24 @ 11:27 by Katja Short APRN) Kidney stone History of gastroesophageal reflux (GERD) Diabetes mellitus, type 2 History of heart attack Hyperlipidemia Hypertension Surgical History (Updated 03/18/24 @ 10:00 by Sylvia Jackson) History of loop recorder History of heart artery stent History of cardiac catheterization Family History Other Cancer Coronary artery disease Diabetes Heart attack Hypertension Kidney disease Social History Smoking Status: Former smoker tobacco type: cigarettes second hand exposure: No alcohol intake: never substance use type: denies use current occupational status: retired Travel in the last 8 weeks: None household members: spouse housing: house marital status: caffeine: Yes Have you lived/traveled outside US in past 30 days?: No Contact w/someone who lives/traveled outside US past 30 days?: No Exposure to someone with infectious disease in past 14 days?: No Do you have a fever (greater than 100.4 F or 38 C)?: No Have you tested positive for COVID-19: No Exposed to someone with COVID-19 in past 14 days?: No Do you have a sore throat?: No Do you have a cough?: Yes Do you have any weakness?: No Do you have any diarrhea?: No Are you experiencing any unusual bleeding?: No Do you have any muscle aches/pain?: No Do you have any abdominal pain?: No Are you experiencing loss of taste or smell?: No ROS Obtained: Yes All systems reviewed & no additional complaints except as documented and Yes Systems reviewed as appropriate & no additional complaints except as documented Constitutional Constitutional: Reports system reviewed and no additional complaints, except as documented, Reports as per HPI, Denies body ache, Denies chills, Denies fever(s) and Denies headache(s) ENT Ears, Nose, Mouth, and Throat: Reports system reviewed and no additional complaints, except as documented, Reports as per HPI, Denies headache(s), Reports sinus pain and Reports sinus pressure Cardiovascular Cardiovascular: Reports system reviewed and no additional complaints, except as documented and Reports as per HPI Respiratory Respiratory: Reports system reviewed and no additional complaints, except as documented, Reports as per HPI, Denies shortness of breath, Reports chest congestion, Reports cough, Denies pain on inspiration and Denies pain with cough Neurologic Neurologic: Denies headache(s) Physical Exam General General appearance: alert and in no apparent distress ENT ENT exam: Present mucous membranes moist Expanded ENT Exam Nose exam: Present sinus tenderness Throat exam: Present other (PND noted) Respiratory Respiratory exam: Present normal lung sounds bilaterally; Absent respiratory distress or wheezes Cardiovascular Cardiovascular exam: Present regular rate, normal rhythm and normal heart sounds Abdominal Exam Abdominal exam: Present soft and normal bowel sounds; Absent distention or tenderness Neurological Exam Neurological exam: Present alert, oriented X3 and normal gait Medical Decision Making Medical Records Screening: Per USPSTF and CDC recommendations, given the prevalence of disease in our region, it is our hospital?s policy to screen for HIV and viral Hepatitis for all patients aged 18 and over and those with ongoing risk factors. Rodo Inquiry Pt receiving controlled substance: No Rodo was queried for this patient: No Vital Signs: 09/27/24 10:50 Temperature 98.3 F Temperature Source Oral Pulse Rate [Left Brachial] 64 Respiratory Rate 22 Blood Pressure [Left Arm] 142/68 H Blood Pressure Mean [Left Arm] 92 Blood Pressure Source [Left Arm] Automatic Cuff Blood Pressure Position [Left Arm] Sitting 02 Sat by Pulse Oximetry 94 L Oxygen Delivery Method Room Air Medical Decision Narrative: Discussed CXR and patient declined at this time, patient states that he is a Diabetic but has taken Azithromycin and Prednisone in the past without complications or reactions Medications discussed with pharmacy
[2024-09-27 11:30] VITALS: BP 142/68; PULSE 64; RESP 22; TEMP 36.8; O2SAT 94
== END 2024-09-27 11:32 | disposition home or self-care (01) ==
PROVIDERS: Emergency Provider Nurse Practitioner; PCP Nurse Practitioner
DX: J40 Bronchitis, not specified as acute or chronic (principal); J32.9 Chronic sinusitis, unspecified; R51.9 Headache, unspecified; R05.9 Cough, unspecified; R09.81 Nasal congestion; J34.89 Other specified disorders of nose and nasal sinuses; Z87.891 Personal history of nicotine dependence
CPT/HCPCS: 99212; G0381

== ENCOUNTER 2025-02-10 12:20 | Emergency (ER) | payer MEDICARE, SELFPAY ==
[2025-02-10 12:28] VITALS: BP 142/67; PULSE 81; RESP 18; TEMP 37; O2SAT 94; BMI 41.2
[2025-02-10 12:38] LABS: Coronavirus 19, PCR Not Detected (NotDetected); Influenza A, PCR Not Detected (NotDetected); Influenza B, PCR Not Detected (NotDetected)
--- NOTE | 2025-02-10 12:39 | XR_ITS ---
FINAL REPORT CLINICAL HISTORY: Shortness of breath, cough, congestion COMPARISON: 12/04/2022 FINDINGS: The heart size is mildly enlarged. The mediastinum is normal. Interval placement of a left loop recording device is noted. There are chronic changes of the lung bases. There is no focal infiltrate or edema. There are no pleural effusions. There is no pneumothorax. There is no osseous abnormality. IMPRESSION: Chronic changes without acute cardiopulmonary process Reviewed, Interpreted and Dictated by Cliff Song MD Transcribed by Pat Martinez Authenticated and [facility]
--- NOTE | 2025-02-10 12:41 | ED_ITS ---
Discharge Plan Disposition Patient Disposition: Home, Self-Care Condition: Good Prescriptions Prescriptions: New doxycycline hyclate 100 mg capsule 100 mg PO BID 5 Days Qty: 10 0RF No Action escitalopram oxalate [Lexapro] 5 mg tablet 5 mg PO DAILY furosemide [Lasix] 20 mg tablet 20 mg PO DAILY potassium chloride 10 mEq tablet extended release 10 meq PO DAILY zinc sulfate [Orazinc] 50 mg zinc (220 mg) capsule 50 mg PO DAILY cholecalciferol (vitamin D3) 125 mcg (5,000 unit) capsule 125 mcg PO DAILY hydralazine 25 mg tablet 100 mg PO BID glipizide 5 mg tablet 5 mg PO BID amlodipine-benazepril 10-40 mg capsule 1 cap PO DAILY metformin 500 MG tablet 1,000 mg PO BID atorvastatin 80 MG tablet 80 mg PO DAILY aspirin 81 MG tablet,chewable 81 mg PO DAILY pantoprazole [Protonix] [address] for susp in packet 40 mg PO DAILY amlodipine-benazepril 10-40 mg capsule 1 cap PO DAILY Patient Comments: TAKE 1 CAPSULE BY MOUTH 1 TIME DAILY benzonatate 100 mg capsule 100 mg PO TID PRN (Reason: cough) Qty: 30 0RF guaifenesin [Mucinex] 600 mg tablet extended release 12hr 600 mg PO BID PRN (Reason: cough/congestion) Qty: 20 0RF azithromycin [Zithromax Z-Bairon] 250 mg tablet See Rx Instructions .ROUTE .COMPLEX 5 Days Qty: 6 0RF Rx Instructions: For 250 mg dose pack: take 500 mg today (day 1), then 250 mg for 4 days (days 2-5) ondansetron 4 mg tablet,disintegrating 4 mg PO Q8H PRN (Reason: nausea and vomiting) Qty: 6 0RF methylprednisolone [Medrol (Bairon)] 4 mg tablets,dose pack See Rx Instructions .Route .COMPLEX 6 Days Qty: 21 0RF Rx Instructions: taper pack; Referrals Follow up/Referrals: Kareen Carmona APRN [Primary Care Provider] - See instructions Activity Restrictions/Add. Instructions Additional Instructions/Restrictions: Please return to the emergency department with any worsening signs or symptoms, utilize [id number] nasal decongestions, antihistamine/allergy relief medications, or other cold and flu medications for symptomatic relief, please take your antibiotic as prescribed with food, please follow-up with your family physician in the upcoming days. Clinical Impressions Clinical Impression: Bronchitis, Acute viral syndrome, MEREDITH on CPAP Instructions Patient Instructions: DI for Acute Bronchitis Print Language Print Language: Spanish Discharge ED Provider: Kalia Arellaon General Adult HPI <JOHN Paz - Last Filed: 02/10/25 14:13> General Chief complaint: Upper Respiratory Infection Stated complaint: Cough, congestion, SOB Time Seen by Provider: 02/10/25 12:34 Mode of Arrival: Ambulatory Source of Information: Patient and Spouse Description of Symptoms (Recalled from ER Triage Doc. by RN): Pt presents for evaluation of cough and congestion x 1 week . pt also has a decreased appetite. History of Present Illness HPI narrative: 74-year-old male presents to the emergency department with cough congestion and subjective fever chills, pleuritic type chest pain after coughing , endorses drainage , had similar symptoms 1 week ago, was treated with azithromycin at outside clinic, which did provide some relief to the symptomatology. Patient denies any abdominal pain, endorses 1 episode of post tussive emesis, denies any overt cardiac type chest pain, admits to shortness of air, especially after coughing fits , denies any overt abdominal pain, no nausea no vomiting currently, no constipation no diarrhea no urinary type symptomatology, patient is a former smoker, other past medical history consistent with MEREDITH on CPAP, COPD, hypertension, T2DM, coronary artery disease status post 2 stent placement, and GERD. Denies any alcohol or other drug use initial triage vitals are grossly unremarkable. Of note does ambulate with a cane at baseline. Also of note, patient's noticed some drainage , from his bilateral eyes. Clear in nature. Onset (ago): week(s) Related Data Home Medications ?Medication ?Instructions ?Recorded ?Confirmed aspirin 81 mg chewable tablet 81 mg PO DAILY heart. 02/25/18 09/27/24 atorvastatin 80 mg tablet 80 mg PO DAILY Cholesterol 02/25/18 09/27/24 metformin 500 mg tablet 1,000 mg PO BID type 2diabetes 02/25/18 09/27/24 pantoprazole 40 mg granules 40 mg PO DAILY stomach 02/25/18 09/27/24 delayed-release for susp in packet (Protonix) cholecalciferol (vitamin D3) 125 125 mcg PO DAILY 12/03/23 09/27/24 mcg (5,000 unit) capsule escitalopram oxalate 5 mg tablet 5 mg PO DAILY 12/03/23 09/27/24 (Lexapro) furosemide 20 mg tablet (Lasix) 20 mg PO DAILY 12/03/23 09/27/24 potassium chloride 10 mEq 10 meq PO DAILY 12/03/23 09/27/24 tablet,extended release zinc sulfate 50 mg zinc (220 mg) 50 mg PO DAILY 12/03/23 09/27/24 capsule (Orazinc) amlodipine 10 mg-benazepril 40 mg 1 cap PO DAILY 01/08/24 03/18/24 capsule hydralazine 25 mg tablet 100 mg PO BID 01/08/24 09/27/24 glipizide 5 mg tablet 5 mg PO BID 03/18/24 09/27/24 amlodipine 10 mg-benazepril 40 mg 1 cap PO DAILY 09/27/24 09/27/24 capsule Previous Rx's ?Medication ?Instructions ?Recorded azithromycin 250 mg tablet See Rx Instructions PO .COMPLEX 5 09/27/24 (Zithromax Z-Bairon) days #6 tabs benzonatate 100 mg capsule 100 mg PO TID PRN cough #30 caps 09/27/24 guaifenesin 600 mg tablet, 600 mg PO BID PRN cough/congestion 09/27/24 extended release 12 hr (Mucinex) #20 tabs methylprednisolone 4 mg tablets in See Rx Instructions .Route 09/27/24 a dose pack (Medrol (Bairon)) .COMPLEX 6 days #21 tabs ondansetron 4 mg disintegrating 4 mg PO Q8H PRN nausea and 09/27/24 tablet vomiting #6 tabs doxycycline hyclate 100 mg capsule 100 mg PO BID 5 days #10 caps 02/10/25 Allergies Allergy/AdvReac Type Severity Reaction Status Date / Time No Known Drug Allergies Allergy Unknown Verified 03/18/24 09:03 [facility] <JOHN Paz - Last Filed: 02/10/25 14:13> [facility] Disclaimer: The information contained in this section may have been updated after the patient was seen, as this information can be updated by other users. Medical History (Updated 02/10/25 @ 14:10 by JOHN Paz) Kidney stone History of gastroesophageal reflux (GERD) Diabetes mellitus, type 2 History of heart attack Hyperlipidemia Hypertension Surgical History (Updated 03/18/24 @ 10:00 by Sylvia Jackson) History of loop recorder History of heart artery stent History of cardiac catheterization Family History Other Cancer Coronary artery disease Diabetes Heart attack Hypertension Kidney disease Social History Smoking Status: Never smoker second hand exposure: No alcohol intake: never substance use type: denies use current occupational status: retired Travel in the last 8 weeks?: None household members: spouse housing: house marital status: caffeine: Yes Have you lived/traveled outside US in past 30 days?: No Contact w/someone who lives/traveled outside US past 30 days?: No Exposure to someone with infectious disease in past 14 days?: No Do you have a fever (greater than 100.4 F or 38 C)?: No Have you tested positive for COVID-19?: No Exposed to someone with COVID-19 in past 14 days?: No Do you have a sore throat?: No Do you have a cough?: Yes Do you have any weakness?: No Do you have any diarrhea?: No Are you experiencing any unusual bleeding?: No Do you have any muscle aches/pain?: No Do you have any abdominal pain?: No Are you experiencing loss of taste or smell?: No Other Medical History Have you received the Flu Vaccine for this season: No Have you received the Pneumonia Vaccine: No <JOHN Paz - Last Filed: 02/10/25 14:13> ROS Obtained: Yes All systems reviewed & no additional complaints except as documented Physical Exam <JOHN Paz - Last Filed: 02/10/25 14:13> General General appearance: alert, in no apparent distress and obese Comment: Somewhat of a flat affect Head Head exam: atraumatic and normocephalic Eye Eye exam: Present PERRL, EOMI, conjunctival redness, discharge and other (Conjunctival redness, and some clear discharge of the eyes bilaterally) ENT ENT exam: Present mucous membranes moist Neck Neck exam: Present normal inspection Chest Chest inspection: Present normal inspection and symmetric chest wall rise Respiratory Respiratory exam: Present normal lung sounds bilaterally; Absent respiratory distress Cardiovascular Cardiovascular exam: Present regular rate and normal rhythm Abdominal Exam Abdominal exam: Present soft; Absent tenderness Extremities Exam Extremities exam: Present normal inspection Neurological Exam Neurological exam: Present alert and oriented X3 Psychiatric Psychiatric exam: Present normal affect Skin Skin exam: Present warm and dry Medical Decision Making <JOHN Paz - Last Filed: 02/10/25 14:13> Medical Records Medical records reviewed: Yes I reviewed the patient's medical records. Screening: Per USPSTF and CDC recommendations, given the prevalence of disease in our region, it is our hospital?s policy to screen for HIV and viral Hepatitis for all patients aged 18 and over and those with ongoing risk factors. Rodo Inquiry Pt receiving controlled substance: No Rodo was queried for this patient: No Vital Signs: 02/10/25 12:28 02/10/25 12:45 02/10/25 13:00 Temperature 98.6 F Temperature Source Temporal Artery Scan Pulse Rate 82 70 Pulse Rate [Right] 81 Respiratory Rate 18 Blood Pressure 133/80 152/79 H Blood Pressure [Right Arm] 142/67 H Blood Pressure Mean [Right Arm] 92 Blood Pressure Source Blood Pressure Source [Right Arm] Automatic Cuff Blood Pressure Position Blood Pressure Position [Right Arm] Sitting 02 Sat by Pulse Oximetry 94 L 95 91 L Oxygen Delivery Method Room Air Room Air Room Air 02/10/25 13:30 02/10/25 14:25 Temperature 98.1 F Temperature Source Oral Pulse Rate 74 69 Pulse Rate [Right] Respiratory Rate 19 Blood Pressure 159/81 H 138/76 Blood Pressure [Right Arm] Blood Pressure Mean [Right Arm] Blood Pressure Source Automatic Cuff Blood Pressure Source [Right Arm] Blood Pressure Position Sitting Blood Pressure Position [Right Arm] 02 Sat by Pulse Oximetry 94 L Oxygen Delivery Method Room Air Room Air Lab Data Lab Results 02/10/25 12:32: SARS-CoV-2 (PCR) Not detected, Influenza A Untype (PCR) Not detected, Influenza Type B (PCR) Not detected 02/10/25 13:04: WBC 10.3, RBC 4.20 L, Hgb 12.5 L, Hct 37.2 L, MCV 88.6, MCH 29.8, MCHC 33.6, RDW 14.1, Plt Count 289, MPV 10.4, Neut % (Auto) 76.1, Lymph % (Auto) 11.2, Wilson % (Auto) 11.1 H, Eos % (Auto) 0.3, Baso % (Auto) 0.7, Neut # (Auto) 7.8, Lymph # (Auto) 1.2, Wilson # (Auto) 1.1 H, Eos # (Auto) 0.0, Baso # (Auto) 0.1, Sodium 139, Potassium 3.4 L, Chloride 108 H, Carbon Dioxide 22, Anion Gap 12.4, BUN 18, Creatinine 1.10, Estimated Creat Clear 129, Estimated GFR 66, Est GFR ( Amer) 80, Glucose 94, Calcium 8.8, Magnesium 1.6, Total Bilirubin 0.8, AST 26, ALT 24, Alkaline Phosphatase 81, Troponin I 0.02, N T-Pro-B Natriuret Pep 177 H, Total Protein 6.9, Albumin 4.1, Globulin 2.8, Albumin/Globulin Ratio 1.5 02/10/25 13:04 02/10/25 13:04 Orders (Tests/Meds): ED MEDICATIONS Discontinued Medications Generic Name Dose Route Start Last Admin Trade Name Freq PRN Reason Stop Dose Admin Dexamethasone Sodium Phosphate 10 mg 02/10/25 14:10 Dexamethasone 4mg/Ml 1ml Vial IV 02/10/25 14:11 ONCE ONE ORDERS Category Date Time Status XR chest portable Stat Exams 02/10/25 12:39 Completed Complete Blood Count Auto Diff Stat Lab 02/10/25 13:04 Completed Comprehensive Metabolic Panel Stat Lab 02/10/25 13:04 Completed Magnesium Stat Lab 02/10/25 13:04 Completed NT Pro Brain Natriuretic Pep. Stat Lab 02/10/25 13:04 Completed Rapid PCR Covid and Flu A/B Stat Lab 02/10/25 12:32 Completed Troponin I Stat Lab 02/10/25 13:04 Completed Medical Decision Narrative: 74-year-old male presents the emergency department with URI type symptomatology, differential diagnose include but not limited to, acute bronchitis, pneumonia, other URI, allergic rhinitis, viral rhinosinusitis, COPD exacerbation, cardiac arrhythmia, electrolyte disturbance among others. I discussed patient case with inpatient Will obtain basic laboratory studies, chest x-ray, magnesium level proBNP, troponin, EKG and chest x-ray, as well as rapid COVID PCR and flu PCR. COVID-19, influenza A and B are negative. CBC unremarkable CMP is notable for normal troponin at 0.02, proBNP is minimally elevated at 177 otherwise unremarkable CMP. I reviewed the patient's chest x-ray along with the attending physician, radiology report is not available for review, but there does appear to be some consolidation/dense consolidated in the right lower lobe as well as possibly in the left lingula, will treat prophylactically for COPD exacerbation versus pneumonia with 100 mg p.o. twice daily of doxycycline for 5 days, will give 10 mg IV dexamethasone prior to discharge, no need for any nebulized treatment at this time as patient has this at home, and no real wheezing noted on exam, SpO2 within normal limits. Patient family voiced understanding of the Contreet plan/discharge plan, discharge diagnosis is URI versus COPD exacerbation, prophylactically will be treated for pneumonia to the patient's risk factors of type 2 diabetes COPD and MEREDITH. Patient having voiced understanding, will follow- up with PCP and strict ED return precaution were given. Of note I did offer full respiratory panel to the patient pain at the bedside, patient and family declined, this is reasonable as management would not change, patient's bilateral eye discharge, does not consistent with bacterial conjunctivitis is more in line with a viral conjunctivitis most likely viral syndrome corresponding with the patient's nonspecific URI. <Kalia Arellano MD - Last Filed: 02/11/25 08:17> Vital Signs: 02/10/25 12:28 02/10/25 12:45 02/10/25 13:00 Temperature 98.6 F Temperature Source Temporal Artery Scan Pulse Rate 82 70 Pulse Rate [Right] 81 Respiratory Rate 18 Blood Pressure 133/80 152/79 H Blood Pressure [Right Arm] 142/67 H Blood Pressure Mean [Right Arm] 92 Blood Pressure Source Blood Pressure Source [Right Arm] Automatic Cuff Blood Pressure Position Blood Pressure Position [Right Arm] Sitting 02 Sat by Pulse Oximetry 94 L 95 91 L Oxygen Delivery Method Room Air Room Air Room Air 02/10/25 13:30 02/10/25 14:25 Temperature 98.1 F Temperature Source Oral Pulse Rate 74 69 Pulse Rate [Right] Respiratory Rate 19 Blood Pressure 159/81 H 138/76 Blood Pressure [Right Arm] Blood Pressure Mean [Right Arm] Blood Pressure Source Automatic Cuff Blood Pressure Source [Right Arm] Blood Pressure Position Sitting Blood Pressure Position [Right Arm] 02 Sat by Pulse Oximetry 94 L Oxygen Delivery Method Room Air Room Air Lab Data Lab Results 02/10/25 12:32: SARS-CoV-2 (PCR) Not detected, Influenza A Untype (PCR) Not detected, Influenza Type B (PCR) Not detected 02/10/25 13:04: WBC 10.3, RBC 4.20 L, Hgb 12.5 L, Hct 37.2 L, MCV 88.6, MCH 29.8, MCHC 33.6, RDW 14.1, Plt Count 289, MPV 10.4, Neut % (Auto) 76.1, Lymph % (Auto) 11.2, Wilson % (Auto) 11.1 H, Eos % (Auto) 0.3, Baso % (Auto) 0.7, Neut # (Auto) 7.8, Lymph # (Auto) 1.2, Wilson # (Auto) 1.1 H, Eos # (Auto) 0.0, Baso # (Auto) 0.1, Sodium 139, Potassium 3.4 L, Chloride 108 H, Carbon Dioxide 22, Anion Gap 12.4, BUN 18, Creatinine 1.10, Estimated Creat Clear 129, Estimated GFR 66, Est GFR ( Amer) 80, Glucose 94, Calcium 8.8, Magnesium 1.6, Total Bilirubin 0.8, AST 26, ALT 24, Alkaline Phosphatase 81, Troponin I 0.02, N T-Pro-B Natriuret Pep 177 H, Total Protein 6.9, Albumin 4.1, Globulin 2.8, Albumin/Globulin Ratio 1.5 Orders (Tests/Meds): ED MEDICATIONS Discontinued Medications Generic Name Dose Route Start Last Admin Trade Name Freq PRN Reason Stop Dose Admin Dexamethasone Sodium Phosphate 10 mg 02/10/25 14:10 Dexamethasone 4mg/Ml 1ml Vial IV 02/10/25 14:11 ONCE ONE ORDERS Category Date Time Status XR chest portable Stat Exams 02/10/25 12:39 Completed Complete Blood Count Auto Diff Stat Lab 02/10/25 13:04 Completed Comprehensive Metabolic Panel Stat Lab 02/10/25 13:04 Completed Magnesium Stat Lab 02/10/25 13:04 Completed NT Pro Brain Natriuretic Pep. Stat Lab 02/10/25 13:04 Completed Rapid PCR Covid and Flu A/B Stat Lab 02/10/25 12:32 Completed Troponin I Stat Lab 02/10/25 13:04 Completed ECG Data Tracing #1: I reviewed this ECG and interpreted as documented below: (Sinus rhythm 76 bpm with right bundle branch block morphology and no acute ischemic changes. [place] interval 163, QRS 162, QTc 451.) Medical Decision Narrative: 74-year-old male presents the emergency department with URI type symptomatology, differential diagnose include but not limited to, acute bronchitis, pneumonia, other URI, allergic rhinitis, viral rhinosinusitis, COPD exacerbation, cardiac arrhythmia, electrolyte disturbance among others. I discussed patient case with inpatient Will obtain basic laboratory studies, chest x-ray, magnesium level proBNP, troponin, EKG and chest x-ray, as well as rapid COVID PCR and flu PCR. COVID-19, influenza A and B are negative. CBC unremarkable CMP is notable for normal troponin at 0.02, proBNP is minimally elevated at 177 otherwise unremarkable CMP. I reviewed the patient's chest x-ray along with the attending physician, radiology report is not available for review, but there does appear to be some consolidation/dense consolidated in the right lower lobe as well as possibly in the left lingula, will treat prophylactically for COPD exacerbation versus pneumonia with 100 mg p.o. twice daily of doxycycline for 5 days, will give 10 mg IV dexamethasone prior to discharge, no need for any nebulized treatment at this time as patient has this at home, and no real wheezing noted on exam, SpO2 within normal limits. Patient family voiced understanding of the Contreet plan/discharge plan, discharge diagnosis is URI versus COPD exacerbation, prophylactically will be treated for pneumonia to the patient's risk factors of type 2 diabetes COPD and MEREDITH. Patient having voiced understanding, will follow- up with PCP and strict ED return precaution were given. Of note I did offer full respiratory panel to the patient pain at the bedside, patient and family declined, this is reasonable as management would not change, patient's bilateral eye discharge, does not consistent with bacterial conjunctivitis is more in line with a viral conjunctivitis most likely viral syndrome corresponding with the patient's nonspecific URI. I was consulted by the ARLETH, and we discussed the complexity of the problems being addressed. I approved the treatment and management plan for this patient's care in the Emergency Department, thus performing a substantive portion of the medical decision making. Kalia Arellaon MD Critical Care <JOHN Paz - Last Filed: 02/10/25 14:13> Critical Care Time Critical Care Time: No
[2025-02-10 12:45] VITALS: BP 133/80; PULSE 82; O2SAT 95
--- NOTE | 2025-02-10 12:52 | ECG_ITS ---
APPROVED REPORT Exam: Resting ECG HR:76 bpm ECG Measurements Heart Rate 76 AXES ME 163 P 44 QRSd 162 QRS -61 QT 421 T 18 QTc 451 Conclusion Sinus rhythm Right bundle branch block morphology Left anterior fascicular block No acute ischemic changes Electronically signed by : ACE HAMMER, 02/13/2025 19:36:49
[2025-02-10 13:00] VITALS: BP 152/79; PULSE 70; O2SAT 91
[2025-02-10 13:13] LABS: Basophils # 0.1 K/mm3 (0-0.2); Basophils % 0.7 % (0.1-2.0); Eosinophils % 0.3 % (0.1-12.0); Hematocrit 37.2 % (42.0-52.0); Hemoglobin 12.5 g/dL (14.1-18.0); Immature Granulocytes # 0.06 10^3uL; Immature Granulocytes % 0.6 %; Lymphocytes # 1.2 K/mm3 (0.7-4.5); Lymphocytes % 11.2 % (10-50); Mean Corpuscular HGB Conc 33.6 g/dL (31.8-35.4); Mean Corpuscular Hemoglobin 29.8 pg (27.0-31.2); Mean Corpuscular Volume 88.6 fl (80-94); Mean Platelet Volume 10.4 fl (7.4-10.4); Monocytes # 1.1 K/mm3 (0.1-1.0); Monocytes % 11.1 % (1.7-9.3); Neutrophils # 7.8 K/mm3 (1.8-7.8); Neutrophils % 76.1 % (37.0-80.0); Nucleated Red Blood Cells # 0 10^3/uL; Nucleated Red Blood Cells % 0 %; Platelet Count 289 K/mm3 (142-424); Red Cell Distribution Width 14.1 % (11.5-17.5); Red Cell Distribution Width-SD 45.6 fL; White Blood Count 10.3 K/mm3 (4.8-10.8)
[2025-02-10 13:28] LABS: Alanine Aminotransferase 24 U/L (12-78); Albumin Level 4.1 g/dl (3.5-5.0); Albumin/Globulin Ratio 1.5 (1.1-1.8); Alkaline Phosphatase 81 U/L (38-126); Aspartate Amino Transferase 26 U/L (17-59); Bilirubin,Total 0.8 mg/dl (0.2-1.3); Blood Urea Nitrogen 18 mg/dl (9-20); Calcium 8.8 mg/dl (8.4-10.2); Carbon Dioxide 22 mmol/L (22.0-30.0); Chloride 108 mmol/L (98-107); Creatinine Clearance Estimated 129 mL/min (50-200); Estimated Glomerular Filt Rate 66 ml/min (>60); GFR (African American) 80 ML/MIN (>60); Globulin 2.8 g/dL (1.3-3.2); Glucose 94 mg/dl (74-100); Magnesium 1.6 mg/dl (1.6-2.3); Sodium 139 mmol/L (136-145); Total Protein,Serum 6.9 g/dl (6.3-8.2)
[2025-02-10 13:30] VITALS: BP 159/81; PULSE 74; O2SAT 94
[2025-02-10 13:38] LABS: NT Pro Brain Natriuretic Pep. 177 pg/mL (0-125)
[2025-02-10 13:40] LABS: Troponin I 0.02 ng/ml (0.00-0.034)
[2025-02-10 14:01] LABS: Anion Gap 12.4 mEq/L (5-15); Potassium 3.4 mmoL/L (3.5-5.1)
[2025-02-10 14:25] VITALS: BP 138/76; PULSE 69; RESP 19; TEMP 36.7; O2SAT 95
== END 2025-02-10 14:26 | disposition home or self-care (01) ==
PROVIDERS: Physician Assistant; Emergency Provider Emergency Medicine; PCP Nurse Practitioner
DX: R06.02 Shortness of breath (principal); J20.9 Acute bronchitis, unspecified; I45.10 Unspecified right bundle-branch block; J44.9 Chronic obstructive pulmonary disease, unspecified; I10 Essential (primary) hypertension; E11.9 Type 2 diabetes mellitus without complications; G47.33 Obstructive sleep apnea (adult) (pediatric); Z87.891 Personal history of nicotine dependence
CPT/HCPCS: 71045; 80053; 83735; 83880; 84484; 85025; 87636; 93005; 99284

== ENCOUNTER 2025-03-31 22:40 | Emergency (ER) | payer MEDICARE, SELFPAY ==
--- OUTSIDE RECORDS SUMMARY | 2025-01-26 05:00 | XMS_ITS | Encounter Summary ---
Author Organization [employer] ([place], [place], [place], [place]) Address [address] [place] [address] Care Team Providers Care Cad Developer Name Role Phone Kareen Carmona NP Primary Care Provider [phone] Fabián Gorman MD Unavailable Reason for Visit * Reason Comments LOOP RECORDER Encounter Details Date Type Department Care Team (Late st Contact Info) Description 01/26/2025 5:00 AM EDT Clinical Support [facility] Electrophysiology [address] [place] [address] Fabián Gorman MD [address] [facility] [address] [place] [address] Encounter for adjustment or management of cardiac [...] Date Dimitri rded Speak language other than [place] Islander at home Not on file 10/14/2023 Want [...] present documented in this encounter Care Teams Cad Developer Relationship Specialty Start Date End Date Kareen Carmona NP [address] [facility] [address] [place], [place] [id number] PCP - General Family Medicine 01/06/23 Fabián Gorman MD [address] [facility] [address] [place] [address] [employer] Processor Electrophysiology 06/18/24 documented as of this encounter
--- OUTSIDE RECORDS SUMMARY | 2025-02-28 05:00 | XMS_ITS | Encounter Summary ---
Author Organization [employer] ([place], [place], [place], [place]) Address [address] [place] [address] Care Team Providers Care Vocational Technical Education Teacher Name Role Phone Kareen Carmona NP Primary Care Provider [phone] Fabián Gorman MD Unavailable Reason for Visit * Reason Comments LOOP RECORDER Encounter Details Date Type Department Care Team (Late st Contact Info) Description 02/28/2025 5:00 AM EDT Clinical Support [facility] Electrophysiology [address] [place] [address] Bharat Carmichael MD [address] [facility] [address] [place] [address] Encounter for adjustment or management of cardiac [...] Date Dimitri rded Speak language other than Emirati at home Not on file 10/14/2023 Want [...] present documented in this encounter Care Teams Vocational Technical Education Teacher Relationship Specialty Start Date End Date Kareen Carmona NP [address] [facility] [address] [place], [place] [id number] PCP - General Family Medicine 01/06/23 Fabián Gorman MD [address] [facility] [address] [place] [address] Bus Analyst Electrophysiology 06/18/24 documented as of this encounter
[2025-03-31] VITALS (12 sets, daily range): BP systolic 128–176; BP diastolic 64–140; PULSE 63–107; RESP 18; TEMP 36.6; O2SAT 91–96; BMI 39.1
--- OUTSIDE RECORDS SUMMARY | 2025-03-31 05:00 | XMS_ITS | Encounter Summary ---
Author Organization [employer] ([place], [place], [place], [place]) Address [address] [place] [address] Care Team Providers Care Cyber Security Instructor Name Role Phone Kareen Carmona NP Primary Care Provider [phone] Fabián Gorman MD Unavailable Reason for Visit * Reason Comments Pacemaker /ICD Home Monitoring Encounter Details Date Type Department Care Team (Late st Contact Info) Description 03/31/2025 5:00 AM EDT Clinical Support [facility] Electrophysiology [address] [place] [address] Fabián Gorman MD [address] [facility] [address] [place] [address] Encounter for adjustment or management of cardiac device (Primary Dx); Recurrent syncope; Implantable loop recorder present Social History Tobacco Use Types Packs/Day Years Used Date Smoking Tobacco: Former Cigarettes 2 30 1 973 - 2002 Smokeless Tobacco: Never Alcohol Use Standard Drinks/Week Comments Not Currently 0 (1 standard drink = 0.6 oz pur e alcohol) Family and Community Support Answer Wai e Recorded Help with Day to Day Activities Not on file 10/14/2023 Feeling Lonely or Isolated Not on file 10/14 Educational Attainment Answer Date Dimitri rded Speak language other than Kosovan at home Not on file 10/14/2023 Want [...] present documented in this encounter Care Teams Cyber Security Instructor Relationship Specialty Start Date End Date Kareen Carmona NP [address] [facility] [address] [place], [place] [id number] PCP - General Family Medicine 01/06/23 Fabián Gorman MD [address] [facility] [address] [place] [address] Corporate Accounting Manager Electrophysiology 06/18/24 documented as of this encounter
--- OUTSIDE RECORDS SUMMARY | 2025-03-31 22:46 | XMS_ITS | Encounter Summary ---
Author Organization [employer] ([place], [place], [place]) Address [address] [place] [address] Care Team Providers Care Hot Plate Press Operator Name Role Phone Kareen Carmona NP Primary Care Provider [phone] Fabián Gorman MD Unavailable Reason for Visit * Reason Onset Date Comments Medication Refill Medication Refill 11/19/2022 Encounter Details Date Type Department Care Team (Late st Contact Info) Description 11/18/2022 Telephone [facility] Cardiology [address] [place] [address] Manuel Harry MD [address] [facility] [address] [place], [place] [id number] Medication Refill; Medication Refill Social History Tobacco Use Types Packs/Day Years Used Date Smoking Tobacco: Never Assessed Sex and Gender Information Value Date Recorded Sex Assigned at Not on file Legal Sex Male 7:33 PM CDT Gender Identity Not on file Sexual Orientation Not on file documented as of this encounter Plan of Treatment Not on file documented as of this encounter Visit Diagnoses Diagnosis Primary hypertension- Primary Unspecified essential hypertension documented in this encounter Care Teams Hot Plate Press Operator Relationship Specialty Start Date End Date Kareen Carmona NP [address] [facility] [address] [place], [place] [id number] PCP - General Family Medicine 01/06/23 Fabián Gorman MD [address] [place] [address] Commercial Shrimping Captain Electrophysiology 06/18/24 documented as of this encounter
--- OUTSIDE RECORDS SUMMARY | 2025-03-31 22:46 | XMS_ITS | Encounter Summary ---
Author Organization [employer] ([place], [place], [place], [place]) Address [address] [place] [address] Care Team Providers Care Senior Gamemaster Name Role Phone Kareen Carmona NP Primary Care Provider [phone] Fabián Gorman MD Unavailable Encounter Details Date Type Department Care Team (Late st Contact Info) Description 03/29/2022 Transcribed Document [facility] [address] [place] [address] ProviderVarun MD [address] [place] [address] Social History Tobacco Use Types Packs/Day Years Used Date Smoking Tobacco: Never Assessed Family and Community Support Answer Wai e Recorded Help with Day to Day Activities Not on file 10/14/2023 Feeling Lonely or Isolated Not on file 10/14 Educational Attainment Answer Date Dimitri rded Speak language other than Colombian at home Not on file 10/14/2023 Want [...] on file Sexual Orientation Not on file COVID-19 Exposure Response Date Recorded In the last 10 days, have yo u been in contact with someone who was confirmed or suspected to have Coronavirus/COVID-19? No / Unsure 01/20/2023 8:17 AM EDT documented as of this encounter Miscellaneous Notes * Cerner Conversion Note - Historical Provider, - 03/29/2022 12:48 AM CDT DATE OF SERVICE: 03/21/2022 LEXISCAN MYOVIEW PERFUSION STUDY INDICATION: Abnormal EKG. ADDITIONAL REFERRING PHYSICIAN: Dr. Jarred Montiel. RESTING ELECTROCARDIOGRAM: Marked sinus bradycardia, right bundle-branch block. LEXISCAN STRESS: Standard Lexiscan stress protocol. Peak heart rate response of 69 beats per minute and blood pressure response to 177/64 mmHg were achieved. There is no chest discomfort. No arrhythmia. The stress electrocardiogram is negative for ischemic ST changes. 15 mCi of Myoview was administered prior to rest scan and 45 mCi prior to the post stress scan. MYOVIEW PERFUSION DATA: Reversible defect: None. Fixed defects: There is moderate fixed defect involving the basal inferior wall. Left ventricular function: Gated management of left ventricular systolic function post-stress was 56%. No regional wall motion abnormality. IMPRESSION: Probably normal Lexiscan Myoview perfusion study. No evidence of ischemia. Fixed basal inferior defect could represent diaphragmatic attenuation. Normal left ventricular systolic function post stress. /[id number] Troy Mayes MD SSL/AQ / SSL / MODL /[id number] CC: MD Jarred Buchanan MD Electronically signed by Troy [facility] Conversion Cigarette Catcher Emilianoner at 01/15/2023 7:34 AM CDT documented in this encounter Plan of Treatment Not on file documented as of this encounter Visit Diagnoses Not on filedocumented in this encounter Care Teams Senior Gamemaster Relationship Specialty Start Date End Date Kareen Carmona NP [address] [place] [address] PCP - General Family Medicine 01/06/23 Fabián Gorman MD [address] [facility] [place] [address] Manager Internet Retails Sales Electrophysiology 06/18/24 documented as of this encounter"
--- OUTSIDE RECORDS SUMMARY | 2025-03-31 22:46 | XMS_ITS | Encounter Summary ---
Author Organization [employer] ([place], [place], [place], [place]) Address [address] [place] [address] Care Team Providers Care Block Handler Name Role Phone Kareen Carmona NP Primary Care Provider [phone] Fabián Gorman MD Unavailable Reason for Visit * Reason Comments Medication Refill Encounter Details Date Type Department Care Team (Late st Contact Info) Description 03/31/2023 Refill [facility] Cardiology [address] [place] [address], CIGAR BANDER [address] [facility] [address] [place] [address] Primary hypertension Social History Tobacco Use Types Packs/Day Years Used Date Smoking Tobacco: Never Assessed Sex and Gender Information Value Date Recorded Sex Assigned at Not on file Legal Sex Male 7:33 PM CDT Gender Identity Not on file Sexual Orientation Not on file documented as of this encounter Plan of Treatment Not on file documented as of this encounter Visit Diagnoses Diagnosis Primary hypertension Unspecified essential hypertension documented in this encounter Care Teams Block Handler Relationship Specialty Start Date End Date Kareen Carmona NP [address] [facility] [address] [place] [address] PCP - General Family Medicine 01/06/23 Fabián Gorman MD [address] [facility] [place] [address] Psychopaedic Nurse Electrophysiology 06/18/24 documented as of this encounter
--- OUTSIDE RECORDS SUMMARY | 2025-03-31 22:46 | XMS_ITS | Encounter Summary ---
Author Organization [employer] ([place], [place], [place], [place]) Address [address] [place] [address] Care Team Providers Care Yam Curer Name Role Phone Kristine, Kareen NP Primary Care Provider [phone] Fabián Gorman MD Unavailable Encounter Details Date Type Department Care Team (Late st Contact Info) Description 01/03/2020 Transcribed Document [facility] Cardiology [address] [place] [address] Manuel Harry MD [address] [facility] [address] [place] [address] Social History Tobacco Use Types Packs/Day Years Used Date Smoking Tobacco: Never Assessed Sex and Gender Information Value Date Recorded Sex Assigned at Not on file Legal Sex Male 7:33 PM CDT Gender Identity Not on file Sexual Orientation Not on file documented as of this encounter Miscellaneous Notes * Cerner Conversion Note - Manuel Harry MD - 01/03/2020 1:58 PM EDT DATE OF SERVICE: 12/22/2019 LEXISCAN MYOCARDIAL PERFUSION STRESS TEST INDICATIONS: Chest pain and abnormal EKG. READING PHYSICIAN: Manuel Harry MD DESCRIPTION OF PROCEDURE: The patient was brought to the cardiovascular lab and given Lexiscan infusion per protocol. Baseline heart rate 67 beats per minute, augmenting to a maximum of 176 beats per minute. Baseline blood pressure was 148/84 mmHg, augmenting to a maximum of 157/81 mmHg. The patient tolerated the procedure well. No complaints of chest pain or shortness of breath. The patient's baseline ECG reveals sinus bradycardia and the right bundle branch block. ECG during the stress revealed no ST or T-wave changes to be diagnostic of ischemia. The patient received technetium-99m IV at rest and stress, undergoing SPECT imaging after each dose. Images were also gated to evaluate regional wall motion and calculate left ventricular ejection fraction. IMPRESSION: Normal Lexiscan myocardial perfusion stress test: 1. Normal myocardial perfusion. No evidence of ischemia or scar. 2. Normal systolic function with a left ventricular ejection fraction calculated at 57% with normal wall motion and normal myocardial thickening. 3. No evidence of transient ischemic dilatation with a TID ratio of 1.02. 4. Stress ECG negative for diagnostic criteria of ischemia. /[id number] Manuel Harry MD TLG/AQ / TLG / MODL /[id number] documented in this encounter Plan of Treatment Not on file documented as of this encounter Visit Diagnoses Not on filedocumented in this encounter Care Teams Yam Curer Relationship Specialty [place] [address] [place] [address] [address] [place] [address] PCP - General Family Medicine 01/06/23 Fabián [place] [address] [place] [address] [address] [place], [place] [address] Wool Hat Forming Machine Tender Electrophysiology 06/18/24 documented as of this encounter
--- OUTSIDE RECORDS SUMMARY | 2025-03-31 22:46 | XMS_ITS | Encounter Summary ---
Author Organization [employer] ([place], [place], [place], [place]) Address [address] [place] [address] Care Team Providers Care Lining Machine Tender Name Role Phone Kareen Carmona NP Primary Care Provider [phone] Fabián Gorman MD Unavailable Reason for Visit * Reason Comments Medication Refill Encounter Details Date Type Department Care Team (Late st Contact Info) Description 10/14/2023 Refill [facility] Cardiology [address] [place] [address], SMALL BUSINESS DIRECTOR [address] [facility] [address] [place] [address] Primary hypertension Social History Tobacco Use Types Packs/Day Years Used Date Smoking Tobacco: Former Cigarettes 30 1 973 - 2002 Smokeless Tobacco: [...] hypertension documented in this encounter Care Teams Lining Machine Tender Relationship Specialty Start Date End Date Kareen Carmona NP [address] [facility] [address] [place] [address] PCP - General Family Medicine 01/06/23 Fabián Gorman MD [address] [facility] [address] [place] [id number] Guest Service Agent Electrophysiology 06/18/24 documented as of this encounter
--- OUTSIDE RECORDS SUMMARY | 2025-03-31 22:47 | XMS_ITS | Clinical Summary ---
Author Organization [employer] ([place], [place], [place], [place]) Address [address] [place] [address] Care Team Providers Care Professor Of Architecture Name Role Phone Kareen Carmona NP Primary Care Provider [phone] Fabián Gorman MD Unavailable Allergies No known active allergies Medications atorvastatin (LIPITOR) 80 MG tablet Take 1 tablet (80 mg total) by mouth daily. 2 Active nitroglycerin (NITROSTAT) 0.[address] 1 tablet (0.4 mg total) under the tongue every 5 (five) minutes as needed Put 1 pill under tongue every 5min as needed for chest pain.No more than 3 doses in 15min.Call 911 if pain unrelieved 5min after 1st dose. 90 tablet 3 3 Active pantoprazole (PROTONIX) 40 MG tablet Take 1 tablet (40 mg total) by mouth daily. 3 Active zinc gluconate 50 mg tablet Take 1 tablet (50 mg total) by mouth 2 (two) times daily. Active cholecalciferol (VITAMIN D3) 125 mcg (5,000 unit) tablet Take 2 tablets (10,000 Units total) by mouth daily. Active glipiZIDE (GLUCOTROL) 5 MG tablet Take 1 tablet (5 mg total) by mouth 2 (two) times daily before meals. Active escitalopram oxalate (LEXAPRO) 5 MG tablet Take 1 tablet (5 mg total) by mouth daily. Active furosemide (LASIX) 20 MG tablet Take 1 tablet (20 mg total) by mouth 2 (two) times daily. Active potassium chloride (KLOR-CON-M) 10 MEQ CR tablet Take 1 tablet (10 mEq total) by mouth 2 (two) times daily. Active amLODIPine-joo zepriL (LOTREL) 10-40 mg per capsule Take 1 capsule by mouth daily. Active aspirin 81 MG EC tablet Take 1 tablet (81 mg total) by mouth daily. Active metFORMIN (GLUCOPHAGE) 500 MG tablet Take 2 tablets (1,000 mg total) by mouth 2 (two) times daily. 0 4 Active Additional Information Patient taking differently:1,000 mg oral 2 times daily,Take one tablet twice daily, Reported on 11/19/2024 hydrALAZINE (APRESOLINE) 100 MG tablet Take 1 tablet (100 mg total) by mouth 2 (two) times daily Look-alike/Shannan nd-alike medication. 180 tablet 3 4 Active Active Problems Problem Noted Date Diagnosed Date Encounter for adjustment or management of cardia c device 10/15/2024 Lymphedema 05/25/2024 Recurrent syncope 02/24/2024 Implantable loop recorder present 02/24/2024 Bilateral lower extremity edema 10/06/2023 01/28/2024 Thoracic aortic aneurysm, ascending 11/19/2022 Overview (11/19/2022): 4.4cm per CT of chest from [facility], 10/2021 CT of chest no change in aneurysm COPD (chronic obstructive pulmonary disease) GERD (gastroesophageal reflux disease) 2 Morbid obesity 07/12/2022 Overview (01/13/2023): Last Assessment & Plan: Patient's (Body mass index is 41 kg/m .) indicates that they are morbidly obese (BMI > 40 or > 35 with obesity - related health condition) with health conditions that include obstructive sleep apnea, hypertension, coronary heart disease and diabetes mellitus . Weight is unchanged. BMI is is above average; BMI management plan is completed. We discussed portion control and increasing exercise. He is not interested in any nutrition counseling Diabetes mellitus, type 2 12/08/2019 CAD (coronary artery disease) Overview (11/19/2022): (2010) CORBIN to RCA, PTCA to Ramus (2014) CORBIN to mid LAD (03/2022) Lexiscan; no evidence of ischemia. Fixed basal inferior defect. EF 56% HLD (hyperlipidemia) HTN (hypertension) MEREDITH on CPAP Resolved Problems Problem Noted Date Diagnosed Date Resolved Date Rib fracture 01/28/2024 01/28/2024 01/28/2024 Concussion without loss of consciousness 01/28/2024 01/28/2024 01/28/2024 Cellulitis 01/28/2024 01/28/2024 01/28/2024 Pulmonary emboli, post COVID 10/30/2021 02/24/2024 Overview (11/19/2022): Xarelto therapy complete Abnormal electrocardiography 12/08/2019 01/28/2024 Bradycardia 02/24/2024 Encounters Date Type Department Care Team Description 03/31/2025 5:00 AM EDT Clinical Support [facility] Electrophysiology [address] [place], [place] [phone] Fabián Gorman MD Encounter for adjustment or management of cardiac device (Primary Dx); Recurrent syncope; Implantable loop recorder present 02/28/2025 5:00 AM EDT Clinical Support [facility] Electrophysiology [address] [place] [phone] Bharat Carmichael MD Encounter for adjustment or management of cardiac device (Primary Dx); Recurrent syncope; Implantable loop recorder present 01/26/2025 5:00 AM EDT Clinical Support [facility] Electrophysiology [address] [place] [phone] Fabián Gorman MD Encounter for adjustment or management of cardiac device (Primary Dx); Recurrent syncope; Implantable loop recorder present from Last 3 Months Immunizations Name Administration Dates Next Due INFLUENZA QIV ADJUVANTED PF IM ([id number]) 08/01/20 INFLUENZA TRIVALENT ADJUVANTED PF IM 07/04/2017 Influenza, Unspecified Pf 07/26/2018 Pneumococcal Conjugate (Prevnar) 13-Valent 08/13 Pneumococcal Polysaccharide (Pneumovax) 08/10/20 16 SHINGLES VARICELLA (ZOSTAVAX) ZOSTER 09/10/2015 Tdap 07/26/2018 Social History Tobacco Use Types Packs/Day Years Used Date Smoking Tobacco: Former Cigarettes 2 30 1 973 - 2002 Smokeless Tobacco: Never Tobacco Cessation:Counseling Given: Not Answered Alcohol Use Standard Drinks/Week Comments Not Currently 0 (1 standard drink = 0.6 oz pur e alcohol) Family and Community Support Answer Wai e Recorded Help with Day to Day Activities Not on file 10/14/2023 Feeling Lonely or Isolated Not on file 10/14 Educational Attainment Answer Date Dimitri rded Speak language other than Tajik at home Not on file 10/14/2023 Want [...] on file Sexual Orientation Not on file Last Filed Vital Signs Vital Sign Reading Time Taken Comments Blood Pressure 142/76 11/19/2024 10:30 AM EST Pulse 54 11/19/2024 10:30 AM EST Temperature 36.1 C (97 F) 01/28/2024 6:28 AM EDT Respiratory Rate 14 01/28/2024 11:40 AM EDT Oxygen Saturation 97% 11/19/2024 10:30 AM EST Inhaled Oxygen Concentration - - Weight 151 kg (333 lb) 11/19/2024 10:30 AM EST Height 190.5 cm (6' 3 ) 11/19/2024 10:30 AM EST Body Mass Index 41.62 11/19/2024 10:30 AM EST Plan of Treatment Health Maintenance Due Date Last Done Comments CT Colonography 1952 Colonoscopy 1952 Colorectal Cancer Screening 1952 Diabetic Kidney Health Evaluation (KED) 1952 FOBT/FIT 1952 Fit-DNA (Cologuard) 1952 Sigmoidoscopy 1952 Diabetic Eye Exam 1962 Depression Screening (12+) 1964 Hepatitis C Screening 1970 Respiratory Syncytial Virus (RSV) Adult or (1 - Risk 60-74 years 1-dose series) 2012 Shingles Vaccine (Zoster) (2 of 2) 11/05/20152014 Abdominal Aortic Aneurysm (AAA) Screen 2017 Medicare Initial AWV [id number] 09/30/2022 Hemoglobin A1C 01/13/2023 COVID-19 VACCINE (1 - 2023- season) 2024 Pneumococcal 50+ years (3 of 3 - PCV20 or PCV21) 08/13/2024 08/13/2019, 08/10/2016 Falls Risk Screening 09/29/2024 Tobacco Cessation Counseling and Screening (12+) 05/18/2025 05/18/2024 Influenza Vaccine (#1) 2025 08/01/2020, 2016 DTAP/TDAP/TD VACCINES (2 - Td or Tdap) 07/26/2028 Medical Devices Implanted Type Area Nursing Instructor Device Identifier Shelf Expiration Date Model / Serial / Lot Loop Recorder-01/28/20 24 Implanted:01/27 by Fabián Gorman MD (Quantity not on file) LOOP RECORDER [employer] LINQ 2 / [id number] / Description:02-18-2024 SPOKE TO CHANTELLE AND RECONNECT RELAY BOX AND INSTRUCTED YANG TO DO A MANUAL DOWNLOAD [place] [address] Advance Directives For more information, please contact: [phone] * Full Code (Latest Code Status on File) Date Activated Date Inactivated Comments 01/28/2024 9:53 AM 01/29/2024 4:27 AM * Full Code Date Activated Date Inactivated Comments 01/27/2024 8:59 PM 01/28/2024 9:53 AM Care Teams Professor Of Architecture Relationship Specialty Start Date End Date Kareen Carmona NP [address] [facility] [address] [place] [address] PCP - General Family Medicine 01/06/23 Fabián Gorman MD [address] [facility] [address] [place] [address] Kiln Setter Electrophysiology 06/18/24
--- OUTSIDE RECORDS SUMMARY | 2025-03-31 22:47 | XMS_ITS | Referral Summary ---
Author Organization [employer] ([place], [place], [place], [place]) Address [address] [place] [address] Care Team Providers Care Radiological Technologist Name Role Phone Kareen Carmona NP Primary Care Provider [phone] Fabián Gorman MD Unavailable Encounters Date Type Department Care Team Description 03/31/2025 5:00 AM EDT Clinical Support [facility] Electrophysiology [address] [place] [phone] Fabián Gorman MD Encounter for adjustment or management of cardiac device (Primary Dx); Recurrent syncope; Implantable loop recorder present 02/28/2025 5:00 AM EDT Clinical Support [facility] Electrophysiology [address] [place] [phone] Bharat Carmichael MD Encounter for adjustment or management of cardiac device (Primary Dx); Recurrent syncope; Implantable loop recorder present 01/26/2025 5:00 AM EDT Clinical Support [facility] Electrophysiology [address] [place] [phone] Fabián Gorman MD Encounter for adjustment or management of cardiac device (Primary Dx); Recurrent syncope; Implantable loop recorder present from Last 3 Months Allergies No known active allergies Medications atorvastatin (LIPITOR) 80 MG tablet Take 1 tablet (80 mg total) by mouth daily. 10/14/202 2 Active nitroglycerin (NITROSTAT) 0.4 MG SL [...] (11/19/2022): 4.4cm per CT of chest from [facility], 10/2021 CT of chest no change in aneurysm COPD (chronic obstructive pulmonary disease) GERD (gastroesophageal reflux disease) Morbid obesity 07/12/2022 Overview (01/13/2023): Last Assessment [...] complete Abnormal electrocardiography 12/08/2019 01/28/2024 Bradycardia 02/24/2024 Immunizations Name Administration Dates Next Due INFLUENZA QIV ADJUVANTED PF IM ([id number]) 08/01/20 20 INFLUENZA TRIVALENT ADJUVANTED PF IM 07/04/2017 Influenza, [...] Date Dimitri rded Speak language other than Uzbek at home Not on file 10/14/2023 Want [...] 11/19/2024 10:30 AM EST Plan of Treatment Not on file Medical Devices Implanted Type Area Hydraulic Technician Device Identifier Shelf Expiration Date Model / Serial / Lot Loop Recorder-01/28/20 24 Implanted:01/27 by Fabián Gorman MD (Quantity not on file) LOOP RECORDER [employer] LINQ 2 / [id number] / Description:02-18-2024 SPOKE TO CHANTELLE AND RECONNECT RELAY BOX AND INSTRUCTED YANG TO DO A MANUAL DOWNLOAD Insurance [id number] [address] [id number] [employer] MCR ADV Advance Directives For more information, please contact: [phone] * Full Code (Latest Code Status on File) Date Activated Date Inactivated Comments 01/28/2024 9:53 AM 01/29/2024 4:27 AM * Full Code Date Activated Date Inactivated Comments 01/27/2024 8:59 PM 01/28/2024 9:53 AM Care Teams Radiological Technologist Relationship Specialty Start Date End Date Kareen Carmona NP [address] [place] [address] PCP - General Family Medicine 01/06/23 Fabián Gorman MD [address] [place] [address] Hand Spring Repairer Electrophysiology 06/18/24
--- NOTE | 2025-03-31 23:12 | CT_ITS ---
PROCEDURE INFORMATION: Exam: CT Cervical Spine Without Contrast Exam date and time: 03/31/2025 11:42 PM Age: 75 years old Clinical indication: Injury or trauma; Fall; Additional info: Fall on asa, struck back of head TECHNIQUE: Imaging protocol: Computed tomography of the cervical spine without contrast. Radiation optimization: All CT scans at this facility use at least one of these dose optimization techniques: automated exposure control; mA and/or kV adjustment per patient size (includes targeted exams where dose is matched to clinical indication); or iterative reconstruction. COMPARISON: CT CERVICAL SPINE WO CON 03/10/2021 10:53 PM FINDINGS: Bones: Grade 1 anterolisthesis of C4 on C5. Vertebral body heights are preserved. Nonspecific straightening. Moderate degenerative change about the dens. Mild to moderate prevertebral osteophytosis. Bilateral facet joint degenerative change. No acute cervical spine fracture. Central canal stenosis greatest at C5-C6 and C6-C7, at least mild. Multilevel cervical foraminal stenoses. Occipital/suboccipital scalp soft tissue injury. Occipital bone fracture is incompletely visualized. Lungs: Lung apices are normal. Pleural spaces: No visible pneumothorax. Vasculature: Vascular calcification. Soft tissues: See Bones finding. IMPRESSION: No acute cervical spine fracture.
--- NOTE | 2025-03-31 23:12 | CT_ITS ---
PROCEDURE INFORMATION: Exam: CT Head Without Contrast Exam date and time: 03/31/2025 11:39 PM Age: 75 years old Clinical indication: Injury or trauma; Fall; Additional info: Fall on asa, struck back of head TECHNIQUE: Imaging protocol: Computed tomography of the head without contrast. Radiation optimization: All CT scans at this facility use at least one of these dose optimization techniques: automated exposure control; mA and/or kV adjustment per patient size (includes targeted exams where dose is matched to clinical indication); or iterative reconstruction. COMPARISON: CT HEAD/BRAIN WO CON 03/10/2021 10:50 PM FINDINGS: Brain: There is minimal left occipital pneumocephalus. Age-related volume loss. Decreased attenuation of the supratentorial white matter is likely secondary to chronic microvascular ischemia. No definite acute intracranial hemorrhage. No midline shift or significant intracranial mass effect. Cerebral ventricles: Ventriculomegaly is commensurate for degree of volume loss. Paranasal sinuses: Mild paranasal sinus disease. Mastoid air cells: Visualized mastoid air cells are well aerated. Bones: There is minimally depressed left occipital bone fracture. Soft tissues: Posterior scalp soft tissue injury. IMPRESSION: 1. Minimally depressed left occipital bone fracture. 2. No definite acute intracranial hemorrhage.
--- NOTE | 2025-03-31 23:14 | HMH.EDGENADL ---
Discharge Plan Disposition Patient Disposition: Xfer Short-Term Hosp Condition: Fair Prescriptions Prescriptions: No Action escitalopram oxalate [Lexapro] 5 mg tablet 5 mg PO DAILY furosemide [Lasix] 20 mg tablet 20 mg PO DAILY potassium chloride 10 mEq tablet extended release 10 meq PO DAILY zinc sulfate [Orazinc] 50 mg zinc (220 mg) capsule 50 mg PO DAILY cholecalciferol (vitamin D3) 125 mcg (5,000 unit) capsule 125 mcg PO DAILY hydralazine 25 mg tablet 100 mg PO BID glipizide 5 mg tablet 5 mg PO BID amlodipine-benazepril 10-40 mg capsule 1 cap PO DAILY metformin 500 MG tablet 1,000 mg PO BID atorvastatin 80 MG tablet 80 mg PO DAILY aspirin 81 MG tablet,chewable 81 mg PO DAILY pantoprazole [Protonix] [address] for susp in packet 40 mg PO DAILY amlodipine-benazepril 10-40 mg capsule 1 cap PO DAILY Patient Comments: TAKE 1 CAPSULE BY MOUTH 1 TIME DAILY benzonatate 100 mg capsule 100 mg PO TID PRN (Reason: cough) Qty: 30 0RF guaifenesin [Mucinex] 600 mg tablet extended release 12hr 600 mg PO BID PRN (Reason: cough/congestion) Qty: 20 0RF azithromycin [Zithromax Z-Bairon] 250 mg tablet See Rx Instructions .ROUTE .COMPLEX 5 Days Qty: 6 0RF Rx Instructions: For 250 mg dose pack: take 500 mg today (day 1), then 250 mg for 4 days (days 2-5) ondansetron 4 mg tablet,disintegrating 4 mg PO Q8H PRN (Reason: nausea and vomiting) Qty: 6 0RF methylprednisolone [Medrol (Bairon)] 4 mg tablets,dose pack See Rx Instructions .Route .COMPLEX 6 Days Qty: 21 0RF Rx Instructions: taper pack; doxycycline hyclate 100 mg capsule 100 mg PO BID 5 Days Qty: 10 0RF Referrals Follow up/Referrals: Kareen Carmona APRN [Primary Care Provider, Medical] - See instructions Clinical Impressions Clinical Impression: Skull fracture, Pneumocephalus Instructions Patient Instructions: DI for Laceration Repair Print Language Print Language: Vincentian Discharge ED Provider: Negin Lemon Adult [facility] General Chief complaint: Wound/Laceration Stated complaint: fall Time Seen by Provider: 07/03/25 23:00 Mode of Arrival: EMS Source of Information: Patient and EMS Description of Symptoms (Recalled from ER Triage Doc. by RN): patient was at home when he lost his balance and fell and hit the back of his head. Laceration to the back of his head. Bleeding controlled currently. No LOC. Daily aspirin. patient states hes waiting to have back surgery and has had trouble with his balance due to back problems. History of Present Illness HPI narrative: 75-year-old male with history of obesity, MEREDITH, COPD, hypertension, type 2 diabetes presents to the ER after striking his head. Approximately 1-1.5 hours prior to arrival patient was going up his front steps, not using the cane that usually uses, and lost his balance falling backwards, striking the back of his head. Patient reports he fell down 3 steps. He did not lose consciousness but states his vision very briefly went blurry and his arms briefly felt heavy. Both of the symptoms spontaneously resolved at the same time after only being present for a few seconds. Patient does have a laceration on the back of his head. He states he does take aspirin but no other blood thinners. No numbness, tingling, or weakness at this time. Patient reports his chronic back pain is at baseline, not any worse than normal. He states he has had a few falls recently but none in the last week. He states he has been falling because of his chronic back problems but is scheduled for a procedure on Friday to address this. EMS report demonstrates patient was hypertensive in route. Patient transferred himself from the ground to the stretcher and from the stretcher to the bed. Related Data Home Medications ?Medication ?Instructions ?Recorded ?Confirmed aspirin 81 mg chewable tablet 81 mg PO DAILY heart. 02/25/18 09/27/24 atorvastatin 80 mg tablet 80 mg PO DAILY Cholesterol 02/25/18 09/27/24 metformin 500 mg tablet 1,000 mg PO BID type 2diabetes 02/25/18 09/27/24 pantoprazole 40 mg granules 40 mg PO DAILY stomach 02/25/18 09/27/24 delayed-release for susp in packet (Protonix) cholecalciferol (vitamin D3) 125 125 mcg PO DAILY 12/03/23 09/27/24 mcg (5,000 unit) capsule escitalopram oxalate 5 mg tablet 5 mg PO DAILY 12/03/23 09/27/24 (Lexapro) furosemide 20 mg tablet (Lasix) 20 mg PO DAILY 12/03/23 09/27/24 potassium chloride 10 mEq 10 meq PO DAILY 12/03/23 09/27/24 tablet,extended release zinc sulfate 50 mg zinc (220 mg) 50 mg PO DAILY 12/03/23 09/27/24 capsule (Orazinc) amlodipine 10 mg-benazepril 40 mg 1 cap PO DAILY 01/08/24 03/18/24 capsule hydralazine 25 mg tablet 100 mg PO BID 01/08/24 09/27/24 glipizide 5 mg tablet 5 mg PO BID 03/18/24 09/27/24 amlodipine 10 mg-benazepril 40 mg 1 cap PO DAILY 09/27/24 09/27/24 capsule Previous Rx's ?Medication ?Instructions ?Recorded azithromycin 250 mg tablet See Rx Instructions PO .COMPLEX 5 09/27/24 (Zithromax Z-Bairon) days #6 tabs benzonatate 100 mg capsule 100 mg PO TID PRN cough #30 caps 09/27/24 guaifenesin 600 mg tablet, 600 mg PO BID PRN cough/congestion 09/27/24 extended release 12 hr (Mucinex) #20 tabs methylprednisolone 4 mg tablets in See Rx Instructions .Route 09/27/24 a dose pack (Medrol (Bairon)) .COMPLEX 6 days #21 tabs ondansetron 4 mg disintegrating 4 mg PO Q8H PRN nausea and 09/27/24 tablet vomiting #6 tabs doxycycline hyclate 100 mg capsule 100 mg PO BID 5 days #10 caps 02/10/25 Allergies Allergy/AdvReac Type Severity Reaction Status Date / Time No Known Drug Allergies Allergy Unknown Verified 03/18/24 09:03 [facility] Disclaimer: The information contained in this section may have been updated after the patient was seen, as this information can be updated by other users. Medical History (Updated 04/01/25 @ 01:31 by Negin Lemon MD) Kidney stone History of gastroesophageal reflux (GERD) Diabetes mellitus, type 2 History of heart attack Hyperlipidemia Hypertension Surgical History (Updated 03/18/24 @ 10:00 by Sylvia Jackson) History of loop recorder History of heart artery stent History of cardiac catheterization Family History Other Cancer Coronary artery disease Diabetes Heart attack Hypertension Kidney disease Social History Smoking Status: Never smoker second hand exposure: No alcohol intake: never substance use type: denies use current occupational status: retired Travel in the last 8 weeks?: None household members: spouse housing: house marital status: caffeine: Yes Have you lived/traveled outside US in past 30 days?: No Contact w/someone who lives/traveled outside US past 30 days?: No Exposure to someone with infectious disease in past 14 days?: No Do you have a fever (greater than 100.4 F or 38 C)?: No Have you tested positive for COVID-19?: No Exposed to someone with COVID-19 in past 14 days?: No Do you have a sore throat?: No Do you have a cough?: No Do you have any weakness?: No Do you have any diarrhea?: No Are you experiencing any unusual bleeding?: No Do you have any muscle aches/pain?: No Do you have any abdominal pain?: No Are you experiencing loss of taste or smell?: No Other Medical History Have you received the Flu Vaccine for this season: No Have you received the Pneumonia Vaccine: No ROS Obtained: Yes Systems reviewed as appropriate & no additional complaints except as documented Per HPI Physical Exam General General appearance: alert, in no apparent distress and obese Head Head exam: normocephalic and other (4 cm curved laceration on the occipital scalp, hemostatic, no underlying skull deformity appreciated to palpation) Eye Eye exam: Present PERRL and EOMI ENT ENT exam: Present mucous membranes moist Neck Neck exam: Present normal inspection and full ROM; Absent tenderness Chest Chest inspection: Present symmetric chest wall rise; Absent tenderness Respiratory Respiratory exam: Present normal lung sounds bilaterally; Absent respiratory distress, wheezes or stridor Cardiovascular Cardiovascular exam: Present regular rate and normal rhythm Abdominal Exam Abdominal exam: Present soft; Absent distention or tenderness Extremities Exam Extremities exam: Present full ROM and other (Abrasions bilateral elbows) Neurological Exam Neurological exam: Present alert and oriented X3; Absent motor sensory deficit Psychiatric Psychiatric exam: Present normal affect and normal mood Skin Skin exam: Present warm and dry Medical Decision Making Medical Records Medical records reviewed: Yes I reviewed the patient's medical records. Screening: Per USPSTF and CDC recommendations, given the prevalence of disease in our region, it is our hospital?s policy to screen for HIV and viral Hepatitis for all patients aged 18 and over and those with ongoing risk factors. Rodo Inquiry Pt receiving controlled substance: No Vital Signs: 03/31/25 22:42 03/31/25 22:46 03/31/25 22:51 Temperature 98 F Temperature Source Oral Pulse Rate 75 69 Pulse Rate [Left] 107 H Respiratory Rate 18 Blood Pressure 167/64 H 157/71 H Blood Pressure [Right Arm] 156/94 H Blood Pressure Mean [Right Arm] 114 Blood Pressure Source [Right Arm] Automatic Cuff Blood Pressure Position [Right Arm] Sitting 02 Sat by Pulse Oximetry 95 96 93 L Oxygen Delivery Method Room Air 03/31/25 22:56 03/31/25 23:00 03/31/25 23:05 Temperature Temperature Source Pulse Rate 64 68 63 Pulse Rate [Left] Respiratory Rate Blood Pressure 149/65 H 154/81 H 165/140 H Blood Pressure [Right Arm] Blood Pressure Mean [Right Arm] Blood Pressure Source [Right Arm] Blood Pressure Position [Right Arm] 02 Sat by Pulse Oximetry 93 L 91 L 94 L Oxygen Delivery Method 03/31/25 23:10 03/31/25 23:16 03/31/25 23:21 Temperature Temperature Source Pulse Rate 66 64 66 Pulse Rate [Left] Respiratory Rate Blood Pressure 176/94 H 166/86 H 166/88 H Blood Pressure [Right Arm] Blood Pressure Mean [Right Arm] Blood Pressure Source [Right Arm] Blood Pressure Position [Right Arm] 02 Sat by Pulse Oximetry 93 L 92 L 93 L Oxygen Delivery Method 03/31/25 23:25 03/31/25 23:51 03/31/25 23:56 Temperature Temperature Source Pulse Rate 64 83 80 Pulse Rate [Left] Respiratory Rate Blood Pressure 169/94 H 146/75 H 128/64 Blood Pressure [Right Arm] Blood Pressure Mean [Right Arm] Blood Pressure Source [Right Arm] Blood Pressure Position [Right Arm] 02 Sat by Pulse Oximetry 94 L 96 94 L Oxygen Delivery Method 04/01/25 00:00 04/01/25 00:05 04/01/25 00:10 Temperature Temperature Source Pulse Rate 89 74 77 Pulse Rate [Left] Respiratory Rate Blood Pressure 135/75 155/78 H 140/74 Blood Pressure [Right Arm] Blood Pressure Mean [Right Arm] Blood Pressure Source [Right Arm] Blood Pressure Position [Right Arm] 02 Sat by Pulse Oximetry 96 95 94 L Oxygen Delivery Method 04/01/25 00:15 04/01/25 00:30 04/01/25 00:35 Temperature Temperature Source Pulse Rate 74 71 72 Pulse Rate [Left] Respiratory Rate Blood Pressure 145/76 H 150/76 H 152/77 H Blood Pressure [Right Arm] Blood Pressure Mean [Right Arm] Blood Pressure Source [Right Arm] Blood Pressure Position [Right Arm] 02 Sat by Pulse Oximetry 94 L 95 96 Oxygen Delivery Method 04/01/25 00:40 04/01/25 00:45 04/01/25 00:51 Temperature Temperature Source Pulse Rate 72 72 66 Pulse Rate [Left] Respiratory Rate Blood Pressure 145/75 H 142/72 H 127/71 Blood Pressure [Right Arm] Blood Pressure Mean [Right Arm] Blood Pressure Source [Right Arm] Blood Pressure Position [Right Arm] 02 Sat by Pulse Oximetry 95 95 95 Oxygen Delivery Method 04/01/25 00:55 Temperature Temperature Source Pulse Rate 77 Pulse Rate [Left] Respiratory Rate Blood Pressure 141/71 H Blood Pressure [Right Arm] Blood Pressure Mean [Right Arm] Blood Pressure Source [Right Arm] Blood Pressure Position [Right Arm] 02 Sat by Pulse Oximetry 96 Oxygen Delivery Method Lab Data Lab Results 04/01/25 00:28: WBC 15.9 H, RBC 4.20 L, Hgb 12.1 L, Hct 38.3 L, MCV 91.2, MCH 28.8, MCHC 31.6 L, RDW 14.5, Plt Count 301, MPV 10.9 H, Neut % (Auto) 82.1 H, Lymph % (Auto) 9.8 L, Prowers % (Auto) 5.9, Eos % (Auto) 0.9, Baso % (Auto) 0.5, Neut # (Auto) 13.0 H, Lymph # (Auto) 1.6, P[place] # (Auto) 0.9, Eos # (Auto) 0.2, Baso # (Auto) 0.1, Sodium 140, Potassium 3.6, Chloride 102, Carbon Dioxide 26, Anion Gap 15.6 H, BUN 15, Creatinine 1.00, Estimated Creat Clear 132, Estimated GFR 73, Est GFR ( Amer) 89, Glucose 164 H, Calcium 8.8, Total Bilirubin 0.4, AST 22, ALT 21, Alkaline Phosphatase 113, Total Protein 7.1, Albumin 4.2, Globulin 2.9, Albumin/Globulin Ratio 1.4 04/01/25 00:28 04/01/25 00:28 Orders (Tests/Meds): ED MEDICATIONS Generic Name Dose Route Start Last Admin Trade Name Freq PRN Reason Stop Dose Admin Vancomycin HCl 2,500 mg/ 500 mls @ 250 mls/hr 04/01/25 00:30 04/01/25 01:03 Sodium Chloride IV 04/01/25 02:29 250 mls/hr ONCE ONE Administration Miscellaneous 1 each 04/01/25 00:30 04/01/25 00:41 Vancomycin Consult Request NOTAPPLIC 05/01/25 00:29 1 each CONSULT [facility] Administration Discontinued Medications Generic Name Dose Route Start Last Admin Trade Name Freq PRN Reason Stop Dose Admin Cocaine HCl 1 ml 03/31/25 23:22 03/31/25 23:34 Cocaine 4% Topical Soln 4ml Bottle TP 03/31/25 23:23 1 ml ONCE ONE Administration Epinephrine HCl 1 mg 03/31/25 23:22 03/31/25 23:34 Epinephrine 1 Mg/Ml Ampul TP 03/31/25 23:23 1 mg ONCE ONE Administration Cefepime HCl 2 gm/ Sodium 100 mls @ 200 mls/hr 04/01/25 00:16 04/01/25 00:39 Chloride IV 04/01/25 00:45 200 mls/hr ONCE ONE Administration Lidocaine HCl 1 ml 03/31/25 23:22 03/31/25 23:34 Lidocaine 2% Urojet 10ml TP 03/31/25 23:23 1 ml ONCE ONE Administration Morphine Sulfate 2 mg 04/01/25 01:12 04/01/25 01:24 Morphine 2mg/Ml Syringe IV 04/01/25 01:13 2 mg ONCE ONE Administration Ondansetron HCl 4 mg 04/01/25 01:12 04/01/25 01:24 Ondansetron 4mg/2ml Vial IV 04/01/25 01:13 4 mg ONCE ONE Administration ORDERS Category Date Time Status CT cervical spine wo con Stat Cat Scan 03/31/25 23:[address] head/brain wo con Stat Cat Scan 03/31/25 23:12 Completed CBC w/Auto Diff [Complete Blood Count Auto Diff] Stat Lab 04/01/25 00:28 Completed CMP [Comprehensive Metabolic Panel] Stat Lab 04/01/25 00:28 Completed Medical Decision Narrative: In summary, this 75-year-old male with comorbidities described in the HPI not at goal therapy presents to the emergency department today with posterior scalp laceration after fall. On initial evaluation patient is hemodynamically stable, afebrile, GCS 15, neurologically intact throughout, no cerebellar symptoms, strength intact throughout as is sensation. Patient has laceration on the occipital scalp, abrasions on the bilateral elbows without swelling, tenderness, or deformity, range of motion is full, no other traumatic injuries identified. Differential diagnosis includes but is not limited to laceration, skull fracture, intracranial bleed, given patient's age and distracting injury also consider the possibility of C-spine injury though I do have lower suspicion for this clinically. Based on these concerns, I ordered CT imaging. Lidocaine/epinephrine/cocaine applied to the wound for topical anesthetic. CT head personally interpreted does not demonstrate acute intracranial bleed, mass, or midline shift, patient does have a small occipital bone fracture. CT cervical spine per center but does not demonstrate acute injury, there are degenerative changes, see radiology for final interpretations. Radiology read comments on the occipital bone fracture with small pneumocephalus. With the finding of occipital fracture and pneumocephalus, I called for consult and possible transfer. While awaiting a callback, IV was placed, basic labs drawn, empiric vancomycin and cefepime administered for antibiotic prophylaxis since there is an open skull fracture. Eventually transfer center called back and I spoke with Dr. Qiu. After reviewing this patient's fall, labs, imaging, she graciously except the patient for transfer to [facility]. She said she was neutral on whether the patient's laceration got repaired or not prior to arrival, I am going to repair it prior to transfer so that the wound remains hemostatic. Laceration was repaired, see procedure note for details. Patient and family agreeable to transfer. Patient is sitting up on the side of the bed, alert, oriented, GCS 15, no neurologic deficits, airway intact, vital stable, he does have some pain so low-dose morphine and Zofran were administered. He is appropriate for transfer at this time. Patient was transferred in stable condition by ambulance to [facility]. Procedures Risk/Benefits of Procedure(s) Were Explained: Yes Laceration Laceration 1: Site: scalp Size (cm): 4 Description: flap (curved) Local Anesthetic: other anesthetic (Topical lidocaine/epinephrine/cocaine) Pre-repair: wound explored and irrigated extensively Skin layer closed with: other (Simón) Number of sutures: 6 Critical Care Critical Care Time Critical Care Time: No
[2025-03-31] MEDS: LIDOCAINE 2% UROJET 10ML TP (23:34)
[2025-03-31] MEDS: COCAINE 4% TOPICAL SOLN 4ML BOTTLE 1 ML TP (23:34)
[2025-04-01] VITALS (21 sets, daily range): BP systolic 112–155; BP diastolic 61–94; PULSE 66–89; RESP 18; TEMP 36.8; O2SAT 94–98
--- NOTE | 2025-04-01 00:31 | PC.NURSE ---
called at 00:12 for a consult.
[2025-04-01 00:39] LABS: Hematocrit 38.3 % (42.0-52.0); Hemoglobin 12.1 g/dL (14.1-18.0); Immature Granulocytes % 0.8 %; Mean Corpuscular HGB Conc 31.6 g/dL (31.8-35.4); Mean Corpuscular Hemoglobin 28.8 pg (27.0-31.2); Mean Corpuscular Volume 91.2 fl (80-94); Nucleated Red Blood Cells % 0 %; Platelet Count 301 K/mm3 (142-424); Red Blood Count 4.20 M/mm3 (4.60-6.20); Red Cell Distribution Width-SD 48.2 fL; White Blood Count 15.9 K/mm3 (4.8-10.8)
[2025-04-01] MEDS: CEFEPIME HCL 2 GM in 0.9 % SODIUM CHLORIDE 100 ML IV (00:39)
[2025-04-01] MEDS: VANCOMYCIN CONSULT REQUEST 1 EACH NOTAPPLIC (00:41)
[2025-04-01 00:46] LABS: Albumin Level 4.2 g/dl (3.5-5.0); Chloride 102 mmol/L (98-107); Potassium 3.6 mmoL/L (3.5-5.1); Sodium 140 mmol/L (136-145)
[2025-04-01 00:48] LABS: Alanine Aminotransferase 21 U/L (12-78); Anion Gap 15.6 mEq/L (5-15); Aspartate Amino Transferase 22 U/L (17-59); Blood Urea Nitrogen 15 mg/dl (9-20); Carbon Dioxide 26 mmol/L (22.0-30.0); Creatinine Clearance Estimated 132 mL/min (50-200); Creatinine,Serum 1.00 mg/dl (0.66-1.25); Estimated Glomerular Filt Rate 73 ml/min (>60); GFR (African American) 89 ML/MIN (>60)
[2025-04-01 00:49] LABS: Albumin/Globulin Ratio 1.4 (1.1-1.8); Alkaline Phosphatase 113 U/L (38-126); Bilirubin,Total 0.4 mg/dl (0.2-1.3); Calcium 8.8 mg/dl (8.4-10.2); Globulin 2.9 g/dL (1.3-3.2); Glucose 164 mg/dl (74-100); Total Protein,Serum 7.1 g/dl (6.3-8.2)
[2025-04-01] MEDS: VANCOMYCIN HCL 2,500 MG in 0.9 % SODIUM CHLORIDE 500 ML 250 MG IV (01:03)
[2025-04-01] MEDS: ONDANSETRON 4MG/2ML VIAL 4 MG IV (01:24)
[2025-04-01] MEDS: MORPHINE 2MG/ML SYRINGE 2 MG IV (01:24)
--- NOTE | 2025-04-01 01:54 | PC.NURSE ---
Report called to [facility] spoke to Tiffany DIAZ
== END 2025-04-01 02:52 | disposition short-term general hospital (02) ==
PROVIDERS: Emergency Provider Emergency Medicine; PCP Nurse Practitioner
DX: S02.11HB Other fracture of occiput, left side, initial encounter for open fracture (principal); G93.89 Other specified disorders of brain; W10.8XXA Fall (on) (from) other stairs and steps, initial encounter
CPT/HCPCS: 12002; 70450; 72125; 80053; 85025; 96365; 96366; 96375; 99285; J0169; J0692; J2270; J2405; J3370; J7040

== ENCOUNTER 2025-04-25 08:11 | Outpatient (CLI) | payer MEDICARE, SELFPAY ==
--- OUTSIDE RECORDS SUMMARY | 2025-01-26 05:00 | XMS_ITS | Encounter Summary ---
Author Organization [employer] ([place], [place], [place], [place]) Address [address] [place] [address] Care Team Providers Care General Sales Manager Name Role Phone Kareen Carmona NP Primary Care Provider [phone] Fabián Gorman MD Unavailable Reason for Visit * Reason Comments LOOP RECORDER Encounter Details Date Type Department Care Team (Late st Contact Info) Description 01/26/2025 5:00 AM EDT Clinical Support [facility] Electrophysiology [address] [place] [address] Fabián Gorman MD [address] [facility] [address] [place] [address] Encounter for adjustment or management of cardiac device (Primary Dx); Recurrent syncope; Implantable loop recorder present Social History Tobacco Use Types Packs/Day Years Used Date Smoking Tobacco: Former Cigarettes 2 30 1 973 - 2003 Smokeless Tobacco: Never Alcohol Use Standard Drinks/Week Comments Not Currently 0 (1 standard drink = 0.6 oz pur e alcohol) Family and Community Support Answer Wai e Recorded Help with Day to Day Activities Not on file 10/14/2023 Feeling Lonely or Isolated Not on file 10/14 Educational Attainment Answer Date Dimitri rded Speak language other than [place] Irish at home Not on file 10/14/2023 Want help with school or training Not on file 10/14/2023 Substance Use Answer Date Recorded Used prescription meds for non-medical reasons N ot on file 10/14/2023 Used illegal drugs past 12 months Not on file 10/14/2023 Sex and Gender Information Value Date Recorded Sex Assigned at Not on file Legal Sex Male 7:33 PM CDT Gender Identity Not on file Sexual Orientation Not on file documented as of this encounter Plan of Treatment Not on file documented as of this encounter Visit Diagnoses Diagnosis Encounter for adjustment or management of cardiac device- Primary Recurrent syncope Implantable loop recorder present documented in this encounter Care Teams General Sales Manager Relationship Specialty Start Date End Date Kareen Carmona NP [address] [facility] [address] [place], [place] [id number] PCP - General Family Medicine 01/06/23 Fabián Gorman MD [address] [facility] [address] [place] [address] [employer] Equipment Rep[employer]r Electrophysiology 06/18/24 documented as of this encounter
--- OUTSIDE RECORDS SUMMARY | 2025-02-28 05:00 | XMS_ITS | Encounter Summary ---
Author Organization [facility] ([place], [place], [place], [place]) Address [address] [place] [address] Care Team Providers Care Adult Basic Studies Teacher Name Role Phone Kareen Carmona NP Primary Care Provider [phone] Fabián Gorman MD Unavailable Reason for Visit * Reason Comments LOOP RECORDER Encounter Details Date Type Department Care Team (Late st Contact Info) Description 02/28/2025 5:00 AM EDT Clinical Support [facility] Electrophysiology [address] [place] [address] Bharat Carmichael MD [address] [facility] [address] [place] [address] Encounter for adjustment or management of cardiac [...] Date Dimitri rded Speak language other than Marshallese at home Not on file 10/14/2023 Want [...] present documented in this encounter Care Teams Adult Basic Studies Teacher Relationship Specialty Start Date End Date Kareen Carmona NP [address] [facility] [address] [place], [place] [id number] PCP - General Family Medicine 01/06/23 Fabián Gorman MD [address] [facility] [address] [place] [address] Mach[employer] Electrophysiology 06/18/24 documented as of this encounter
--- OUTSIDE RECORDS SUMMARY | 2025-03-21 09:00 | XMS_ITS | Encounter Summary ---
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 documented as of this encounter
--- OUTSIDE RECORDS SUMMARY | 2025-03-31 05:00 | XMS_ITS | Encounter Summary ---
Author Organization [employer] ([place], [place], [place], [place]) Address [address] [place] [address] Care Team Providers Care Plating Stripper Name Role Phone Kareen Carmona NP Primary Care Provider [phone] Fabián Gorman MD Unavailable Reason for Visit * Reason Comments Pacemaker /ICD Home Monitoring Encounter Details Date Type Department Care Team (Late st Contact Info) Description 03/31/2025 5:00 AM EDT Clinical Support [facility] Electrophysiology [address] [place] [address] Fabián Gorman MD [address] [facility] [address] [place] [address] Encounter for adjustment or management of cardiac [...] Date Dimitri rded Speak language other than Argentine at home Not on file 10/14/2023 Want [...] present documented in this encounter Care Teams Plating Stripper Relationship Specialty Start Date End Date Kareen Carmona NP [address] [facility] [address] [place], [place] [id number] PCP - General Family Medicine 01/06/23 Fabián Gorman MD [address] [facility] [address] [place] [address] Milling/Polishing Operator Electrophysiology 06/18/24 documented as of this encounter
--- OUTSIDE RECORDS SUMMARY | 2025-04-01 03:44 | XMS_ITS | Encounter Summary ---
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 Name Role Phone Kareen Carmona Arcelia QUARTER LINING SMOOTHER Primary Care Provider [phone] Reason for Visit * Reason Comments Fall Encounter Details Date Type Department Care Team ([facility] st Contact Info) Description 04/01/2025 3:44 AM EDT - 04/01/2025 9:56 AM EDT Emergency [facility] [address] [place] [address] Jose Armando Thomas MD [address] [place] [address] Pepe Thao MD [address] [place] [phone] Fall, initial encounter (Primary Dx); Head injury, initial encounter Discharge Disposition: Home or Self Care Social History Tobacco Use Types Packs/Day Years Used Date Smoking Tobacco: Never Assessed Sex and Gender Information Value Date Recorded Sex Assigned at Not on file Legal Sex Male 6:56 PM EDT Gender Identity Not on file Sexual Orientation Not on file documented as of this encounter Last Filed Vital Signs Vital Sign Reading Time Taken Comments Blood Pressure 153/74 04/01/2025 9:00 AM EDT Pulse 65 04/01/2025 9:00 AM EDT Temperature 36.3 C (97.4 F) 04/01/2025 3:56 AM EDT Respiratory Rate 20 04/01/2025 9:00 AM EDT Oxygen Saturation 94% 04/01/2025 9:00 AM EDT Inhaled Oxygen Concentration - - Weight - - Height - - Body Mass Index - - documented in this encounter Functional Status * Calculated C-SSRS Risk Score (Lifetime/Recent) Answer Date of Assessment Author No Risk Indicated 04/01/2025 3:58 AM EDT Nesha Gipson RN * Question Answer Date of Assessment Author 1. Wish to be (Past 1 Month) No 025 3:58 AM EDT Nesha Gipson RN 2. Non-Specific Active Suici zak Thoughts (Past 1 Month) No 04/01/2025 3:58 AM EDT Juan Gipson RN 6. Suicidal Behavior (Lifetime) No 3:58 AM EDT Nesha Gipson RN documented as of this encounter Discharge Instructions * Discharge Instructions* Alissa Toussaint MD - 04/01/2025 9:03 AM EDT You were seen and evaluated at [facility] following a fall. Your workupwas positive for occipital skull fracture. Your CT venogram did not show further injury. You were also seen and evaluated by neurosurgery. Per their recommendations you may follow up with your PCP. Please follow up with your PCP in 1 week for staple removal. 4 [place] were placed. You may experience some headaches and tiredness however if you begin to have severe headaches, seizures, confusion, or loss of consciousness please return to the ED for further evaluation. documented in this encounter Miscellaneous Notes * Consults - Estrella Duran MD - 04/01/2025 7:48 AM EDTAssociated Order(s): IP CONSULT TO NEUROSURGERY Reason For Consult Occipital fracture Requesting Service: ED History Of Present Illness Yang Wesley is a 75 y.o. male on ASA 81mg for heart health presenting with occipital fracture afterfall from standing. Patient was standing on his porch when he fell backwards and hit his head on the ground. He had unknown loss of consciousness. He denies headache/nausea/vomiting/vision changes/dizziness. Past Medical History He has no past medical history on file. Surgical History He has no past surgical history on file. Family History Family History[1] Social History He has no history on file for tobacco use, alcohol use, and drug use. Medications Current Medications[2] Allergies Patient has no allergy information on record. Review of Systems 14 point review of systems was performed and was negative except as noted per HPI. Neuro Exam GCS (EMV): 465 Awake, alert, oriented Follows commands appropriately Speech clear Pupils equal/reactive, EOMI CN 2-12 grossly intact No drift Last Recorded Vitals Visit Vitals BP 127/64 Pulse 84 Temp 36.3 ??C (97.4 ??F) (Oral) Resp 10 SpO2 90% Labs No lab exists for component: ALB Imaging I personally reviewed, independently interpreted, and read available radiology reports (as available) for the following studies, and with the following findings: CTH Occipital fracture with minimal pneumocephalus without underlying hematoma Assessment and Plan Yang Wesley is a 75 y.o. male on ASA 81mg for heart health presenting with occipital fracture afterfall from standing. Assessment/Plan Active Problems: There are no active Hospital Problems. - No acute neurosurgical intervention - Please obtain CTV head - If CTV head negative, no further neurosurgical recommendations at this time - No neurosurgical follow-up required pending neuro stability - Rest of care per primary team Thank you for allowing us to participate in the care of this patient. Please call if you have any further questions or concerns. Estrella Duran MD Resident Physician, PGY-2 Department of Neurosurgery [facility] [1] No family history on file. [2] No current facility-administered medications for this encounter. No current outpatient medications on file. Cosigned by Bhupendra Frank MD at 04/01/2025 1:39 PM EDT Associated attestation - Bhupendra Frank MD - 04/01/2025 1:39 PM EDT I discussed the case with the resident/fellow and agree with the findings and plan as documented. Non-significant occipital fracture. No sinus venous thrombosis. No follow-up with Neurosurgery necessary. * ED Procedure Note - Alissa Toussaint MD - 04/01/2025 3:44 AM EDTAssociated Order(s): Suture Removal; Laceration Repair Procedure Reason: Initial simón placed last night came loose. Removed initial simón and placed new simón Suture Removal Performed by: Alissa Toussaint MD Authorized by: Pepe Thao MD Consent: Consent obtained: Verbal Consent given by: Patient Risks, benefits, and alternatives were discussed: yes Risks discussed: Bleeding and pain Colby protocol: Patient identity confirmed: Verbally with patient Attending Supervision?: no Location: Location: Head/neck Head/neck location: Scalp Procedure details: Wound appearance: No signs of infection Number of simón removed: 5 Post-procedure details: Procedure completion: Tolerated Laceration Repair Performed by: Alissa Toussaint MD Authorized by: Pepe Thao MD Consent: Consent obtained: Verbal Consent given by: Patient Risks, benefits, and alternatives were discussed: yes Laceration details: Location: Scalp Scalp location: Occipital Treatment: Area cleansed with: Saline Amount of cleaning: Standard Debridement: None Skin repair: Repair method: Simón Number of simón: 4 Approximation: Approximation: Close Repair type: Repair type: Simple Post-procedure details: Dressing: Open (no dressing) Procedure completion: Tolerated Alissa Toussaint MD Resident 04/01/25926 Cosigned by Pepe Thao MD at 04/01/2025 6:00 PM EDT Associated attestation - Pepe Thao MD - 04/01/2025 6:00 PM EDT I saw and evaluated the patient with the resident/fellow. I discussed the case with the resident/fellow and agree with the findings and plan as documented. I was present for the entirety of the procedure. * ED Provider Notes - Guanaco Ramirez MD - 04/01/2025 3:44 AM EDT - HPI Chief Complaint Patient presents with Fall HPI Patient is a 75-year-old male with no significant past medical history who presents as a transfer from an outside hospital for further evaluation of the occipital bone fracture. Patient is weak at baseline, he reportedly fell backwards and hit his head. Patient was taken to an outside hospital where he was found to have a posterior head laceration and an occipital bone fracture with a trace pneumocephalus. Patient was then transferred to the ED for further evaluation. Time of interview, patient denies any headache, he has pain on the back of his head near the laceration. He is GCS 15. He denies any chest pain, nausea vomiting or diarrhea. He has no additional systemic complaints or concerns. Patient History Past Medical History[1] Surgical History[2] Family History[3] Social History[4] Allergies: Allergies[5] Physical Exam ED Triage Vitals [04/01/25 0356] Temp Heart Rate Resp BP 36.3 ??C (97.4 ??F) 73 19 (!) 178/75 SpO2 Temp Source Heart Rate Source Patient Position 95 % Oral -- Sitting BP Location FiO2 (%) Left arm -- Physical Exam Constitutional: Appearance: Normal appearance. HENT: Head: Normocephalic and atraumatic. Comments: Small superficial incision to the posterior scalp, superficial simón are in place Right Ear: External ear normal. Left Ear: External ear normal. Nose: Nose normal. Mouth/Throat: Mouth: Mucous membranes are dry. Eyes: Extraocular Movements: Extraocular movements intact. Pupils: Pupils are equal, round, and reactive to light. Cardiovascular: Rate and Rhythm: Normal rate and regular rhythm. Pulses: Normal pulses. Pulmonary: Effort: Pulmonary effort is normal. Abdominal: General: Abdomen is flat. Musculoskeletal: General: No swelling or tenderness. Normal range of motion. Cervical back: Normal range of motion. Skin: General: Skin is warm and dry. Capillary Refill: Capillary refill takes less than 2 seconds. Neurological: General: No focal deficit present. Mental Status: He is alert and oriented to person, place, and time. Psychiatric: Mood and Affect: Mood normal. Behavior: Behavior normal. EASI ?? Total Score: 0 [place] Coma Scale Score: 15 TRST Assessment Total: 1 ED Course & MDM - Assessment: 75 y.o. male presents to ED with complaint of scalp laceration and skull fracture. It should be noted that the chronic conditions includes obesity, which currently is not at goal therapy. This complicates the clinical picture because it Comorbidities: may be exacerbating symptoms, complicates the clinical workup, and increases the risk for morbidity Differential Diagnosis: Skull fracture, scalp laceration, intracranial hemorrhage In order to fully explore the differential diagnosis the following treatments and tests were ordered: ED Course as of 04/01/251930Apr 01, [address] Venogram Head No injury to the dural venous sinus per radiology [SM] 09 Spoke with patient about CTV results and plan to d/c based on neurosurgery recommendations. Patient and family verbalize understanding and are agreeable with plan. [SM] ED Course User Index [SM] Alissa Toussaint MD Clinical Impressions as of 04/01/251930 Fall, initial encounter Head injury, initial encounter Social Determinates of Health Risks (including Economic Stability, Education and level of understanding, Healthcare access and quality and concerning social factors): None identified on this visit Patient was hemodynamically stable and in no acute distress. Patient was GCS 15 on physical exam. Patient had no focal neurologic deficits. Patient had a superficial laceration on the back of the head that was closed with simón prior to arrival. Neurosurgery was consulted in the setting of the skull fracture was placed in the syphilis, they recommended timing CT via of the head. Tentative plan was if CTV was unremarkable, patient will be discharged. At time of shift change, CT be a dynamic completed and the patient was signed out to the oncoming physician Ultimately, this patient was was signed out to the oncoming provider (Signed Out) Patient care assumed by oncoming provider, Breana at shift change, tentative plan at the time of sign-out was follow up CTV and discharge if normal ED Prescriptions None - [1] No past medical history on file. [2] No past surgical history on file. [3] No family history on file. [4] [5] Not on File Guanaco Ramirez MD Resident 04/01/251933 Cosigned by Jose Armando Thomas MD at 04/03/2025 11:28 PM EDT Associated attestation - Jose Armando Thomas MD - 04/03/2025 11:28 PM EDT I saw and evaluated the patient with the resident/fellow. I discussed the case with the resident/fellow and agree with the findings and plan as documented. * ED Triage Notes - Nesha Gipson RN - 04/01/2025 3:44 AM EDT Pt from OSH due to suspected occipital fx. Pt had fall earlier yesterday morning going up 3 steps. Pt fell and hit the back of his head. -LOC, takes ASA GCS 15 on arrival * Progress Notes - Alissa Toussaint MD - 04/01/2025 3:44 AM EDT ED TRANSFER OF CARE NOTE Transferring provider: Dr. Ramirez Transferring attending: JENNY Time: 639 I received sign-out and accepted care of this patient from the previous ED providers caring for this patient. I reviewed the patient's history, exam, work- up, and treatment plan up to this point. Please see the primary ED Provider Note for complete elements of the history, physical exam, and ED course. PERTINENT HISTORY: In brief, Yang Wesley is a 75 y.o. male with relevant PMH CAD, HT, HLD, and MEREDITH who presented to the ED for evaluation after a fall. Imaging was positive for occipital fx with trace free air. A CTV was ordered to further assess and determine if patient requires admission or is stable for discharge. PENDING: I accepted care of this patient from the previous provider pending imaging results. Ultimately, imaging demonstrated the following findings: CTV: Mildly depressed left occipital skull fracture is not significantly changed and No evidence of injury to the adjacent dural venous sinus. ED COURSE: ED Course as of 04/01/25918Apr 01, [address] Venogram Head No injury to the dural venous sinus per radiology [SM] 0904 Spoke with patient about CTV results and plan to d/c based on neurosurgery recommendations. Patient and family verbalize understanding and are agreeable with plan. [SM] ED Course User Index [SM] Alissa Toussaint MD Clinical Impressions as of 04/01/25918 Fall, initial encounter Head injury, initial encounter Ultimately, this patient Was discharged Home (Discharge) The primary encounter diagnosis was Fall, initial encounter. A diagnosis of Head injury, initial encounter was also pertinent to this visit. . Patient was counseled on the diagnoses. Discharge medications if any are listed below. Listed medications are thought be either curative for listed diagnoses or will help control ongoing symptoms. Patient is requested to follow up with Patient's Primary Care Provider in order to obtain routine follow up and staple removal. Instructions on follow up as well as precautions to return to the ER provided verbally by the EM provider, as well as written in patients discharge education packet. ED Prescriptions None - Alissa Toussaint MD Cosigned by Pepe Thao MD at 04/01/2025 6:00 PM EDT Associated attestation - Pepe Thao MD - 04/01/2025 6:00 PM EDT I saw and evaluated the patient with the resident/fellow. I discussed the case with the resident/fellow and agree with the findings and plan as documented. documented in this encounter Plan of Treatment Not on file documented as of this encounter Procedures Procedure Name Priority Date/Time Associated Diagnosis Comments CT VENOGRAM HEAD STAT 04/01/2025 7:22 AM EDT ED LACERATION REPAIR Routine 04/01/2025 3:44 AM EDT SUTURE REMOVAL Routine 04/01/2025 3:44 AM EDT documented in this encounter Results * CT Venogram Head (04/01/2025 7:22 AM EDT) Anatomical Region Laterality Modality Head Computed Tomogra phy Impressions 04/01/2025 8:34 AM EDT 1. Mildly depressed left occipital skull fracture is not significantly changed. 2. No evidence of injury to the adjacent dural venous sinus. CRITICAL RESULT: No. COMMUNICATION: Per this written report. Preliminary report signed by Coleman Duke MD on 04/01/2025 8:21 AM By electronically signing this report, I, the attending physician, attest that I have personally reviewed the images/data for the above examination(s) and agree with the final edited report. Drafted by Coleman Duke MD on 04/01/2025 8:14 AM Final report signed by Ashlyn Arreola MD on 04/01/2025 8:34 AM Narrative 04/01/2025 8:34 AM EDT CLINICAL INDICATION: Occipital fracture, adjacent to transverse sinus TECHNIQUE: Spiral axial CT images of the head were obtained with IV contrast administration during the venous phase. MIP images were created. A total of 100 mL of Omnipaque 350 were administered intravenously. Total DLP (Dose-Length Product): 266 mGy*cm. Please note: The reported value represents the total of one or more individual components during the CT acquisition on this date and at this time, and as such, the same value may appear in more than one CT report depending on the interpreting/reporting physicians. COMPARISON: Outside facility Head CT 7 hours prior FINDINGS: Diagnostic Quality: Adequate There is normal enhancement of the superior sagittal, transverse and sigmoid sinuses with no filling defects to suggest thrombosis. The straight sinus, Vein of Colby and deep venous system are grossly normal. No cortical vein thrombosis is present. Other findings: Redemonstrated occipital scalp soft tissue injury with skin simón in place. Small amount of soft tissue gas along the surface of the calvarium. Unchanged appearance of the mildly depressed left occipital skull fracture. No evidence of injury to the adjacent dural venous sinus. Mild pneumocephalus. No obvious intracranial hemorrhage. Procedure Note Ashlyn Arreola MD - 04/01/2025 CLINICAL INDICATION: Occipital fracture, adjacent to transverse sinus TECHNIQUE: Spiral axial CT images of the head were obtained with IV contrastadministration during the venous phase. MIP images were created. A totalof 100 mL of Omnipaque 350 were administered intravenously. Total DLP (Dose-Length Product): 266 mGy*cm. Please note: The reportedvalue represents the total of one or more individual components during theCT acquisition on this date and at this time, and as such, the same valuemay appear in more than one CT report depending on theinterpreting/reporting physicians. COMPARISON: Outside facility Head CT 7 hours prior FINDINGS: Diagnostic Quality: Adequate There is normal enhancement of the superior sagittal, transverse andsigmoid sinuses with no filling defects to suggest thrombosis. Thestraight sinus, Vein of Col[place] and deep venous system are grossly normal.No cortical vein thrombosis is present. Other findings: Redemonstrated occipital scalp soft tissue injury withskin simón in place. Small amount of soft tissue gas along the surfaceof the calvarium. Unchanged appearance of the mildly depressed leftoccipital skull fracture. No evidence of injury to the adjacent duralvenous sinus. Mild pneumocephalus. No obvious intracranial hemorrhage. IMPRESSION: 1.Mildly depressed left occipital skull fracture is not significantlychanged. 2.No evidence of injury to the adjacent dural venous sinus. CRITICAL RESULT: No. COMMUNICATION: Per this written report. Preliminary report signed by Coleman Duke MD on 04/01/2025 8:21 AM By electronically signing this report, I, the attending physician, attestthat I have personally reviewed the images/data for the aboveexamination(s) and agree with the final edited report. Drafted by Coleman Duke MD on 04/01/2025 8:14 AM Final report signed by Ashlyn Arreola MD on 04/01/2025 8:34 AM us Jose Armando Thomas MD IMG CT PROCEDURES Final Resul t * Laceration Repair (04/01/2025 3:44 AM EDT) Narrative Pepe Thao MD - 04/01/2025 3:44 AM EDT Pepe Thao MD 04/01/2025 6:00 PM Laceration Repair Performed by: Alissa Toussaint MD Authorized by: Pepe Thao MD Consent: Consent obtained: Verbal Consent given by: Patient Risks, benefits, and alternatives were discussed: yes Laceration details: Location: Scalp Scalp location: Occipital Treatment: Area cleansed with: Saline Amount of cleaning: Standard Debridement: None Skin repair: Repair method: Simón Number of simón: 4 Approximation: Approximation: Close Repair type: Repair type: Simple Post-procedure details: Dressing: Open (no dressing) Procedure completion: Tolerated Pepe Thao MD IN CLINIC/BEDSIDE ORDERABLE S Final Result * SUTURE REMOVAL (04/01/2025 3:44 AM EDT) Narrative Pepe Thao MD - 04/01/2025 3:44 AM EDT Pepe Thao MD 04/01/2025 6:00 PM Suture Removal Performed by: Alissa Toussaint MD Authorized by: Pepe Thao MD Consent: Consent obtained: Verbal Consent given by: Patient Risks, benefits, and alternatives were discussed: yes Risks discussed: Bleeding and pain [place] protocol: Patient identity confirmed: Verbally with patient Attending Supervision?: no Location: Location: Head/neck Head/neck location: Scalp Procedure details: Wound appearance: No signs of infection Number of simón removed: 5 Post-procedure details: Procedure completion: Tolerated Pepe Thao MD IN CLINIC/BEDSIDE ORDERABLE S Final Result documented in this encounter Visit Diagnoses Diagnosis Fall, initial encounter- Primary Head injury, initial encounter documented in this encounter Administered Medications Inactive Administered Medications - up to 3 most recent administrations Medication Order MAR Action Action Date Dose Rate Site iohexol (OMNIPaque) 350 MG/ML injection 100 mL 100 mL, Intravenous, Once in imaging, 1 dose, Starting on Fri04/01/25 at 0525, Until Fri04/01/25 at 0719, Routine, Imaging Protocol Orders Given 04/01/2025 7:19 AM EDT 100 mL documented in this encounter Active and Recently Administered Medications Times are shown in EDT. Scheduled Medication Order 03/30/2025 03/31/2025 04/01/2025 iohexol (OMNIPaque) 350 MG/ML injection 100 mL (COMPLETED) 100 mL, Intravenous, Once in imaging, 1 dose, Starting on Fri04/01/25 at 0525, Until Fri04/01/25 at 07, Routine, Imaging Protocol Orders 718 (Given - Provid er: Obed Smith) documented in this encounter Care Teams Field Hockey And Lacrosse Coach Relationship Specialty Start Date End Date Kareen Carmona, QUARTER LINING SMOOTHER [address] [phone] PCP - General 04/01/25 documented as of this encounter
--- OUTSIDE RECORDS SUMMARY | 2025-04-08 09:45 | XMS_ITS | Encounter Summary ---
Author Organization [facility] Address [address] [place] [address] Care Team Providers Care Jail Guard Name Role Phone Kareen Carmona APRN Primary Care Provider [phone] Reason for Referral * Physical Therapy (Routine) - Closed Specialty Diagnoses / Procedures Referred By Matthew stein Referred To Contact Physical Therapy Diagnoses Muscle weakness of lower extremity Procedures [place] OFFICE/OUTPATIENT NEW MODERATE MDM 45 MINUTES Kareen Carmona APRN [address] [place] [address] Phone: tel: fax: [facility] - OUTPT [facility]ICAL [facility] [address] [facility] [address] [place] [address] Phone: tel: fax: Referral ID Status Reason Start Date Expiration Date V isits Requested Visits Authorized [id number] Closed Specialty Services Required 04/08/2025 07/08/2026 1 1 Scheduling Instructions [facility] Reason for Visit * Reason Comments Staple removal, Follow up ER visit Encounter Details Date Type Department Care Team (Dianelys st Contact Info) Description 04/08/2025 9:45 AM EDT Office Visit [facility] [address] [place] [phone] Kareen Carmona APRN [address] [place] [address] Lumbar back pain (Primary Dx); Muscle weakness of lower extremity; Primary hypertension; Status post fall Social History Tobacco Use Types Packs/Day Years [...] Sign Reading Time Taken Comments Blood Pressure 108/74 04/08/2025 9:34 AM EDT Pulse 65 04/08/2025 9:34 AM EDT Temperature 36.6 C (97.8 F) 04/08/2025 9:34 AM EDT Respiratory Rate 16 04/08/2025 9:34 AM EDT Oxygen Saturation 97% 04/08/2025 9:34 AM EDT Inhaled Oxygen Concentration - - Weight 142 kg (313 lb) 04/08/2025 9:34 AM EDT Height 190.5 cm (6' 3 ) 04/08/2025 9:34 AM EDT Body Mass Index 39.12 04/08/2025 9:34 AM EDT documented in this encounter Progress Notes * Kareen Carmona, THIERNO - 04/08/2025 10:15 AM EDTAssociated Problem(s): Status post fall On 04/01/2025 patient suffered fall in which he incurred posterior scalp laceration that required stapling as well as occipital bone fracture. Patient initially evaluated at [facility] but then transferred to where he underwent CT venogram of the head. No injury to the dural venous sinus on imaging. Patient was hemodynamically stable and in no acute distress, GCS was 15. Is not experiencing any focalneurologic defects. Neurosurgery was consulted in the setting of the skull fracture, ultimately opting for continued monitoring without intervention. [place] removed in office today, procedure tolerated well. Patient instructed to avoid picking at scab, apply Neosporin ointment regularly * Kareen Carmona APRN - 04/08/2025 10:11 AM EDTAssociated Problem(s): Muscle weakness of lower extremity Patient suffering from bilateral lower extremity muscle weakness due to deconditioning with prolonged course of severe chronic back pain. Placing referral to physical therapy at [facility] for further evaluation and treatment. * Kareen Carmona APRN - 04/08/2025 10:11 AM EDTAssociated Problem(s): Lumbar back pain Patient has been followed for quite some time by orthopedics, Dr. Walters for severe lumbar back pain.Initial failure to 3 epidural steroid injections. Two days ago patient underwent rhizotomy with excellent results. He is now able to stand upright, no longer struggling to go from sitting to standingposition. Patient rates his pain as being 90% resolved. Does have some bilateral lower extremity muscle weakness, likely due to being sedentary with back pain for the last several months. For into physical therapy for strength training. * Kareen Carmona APRN - 04/08/2025 10:09 AM EDTAssociated Problem(s): HTN (hypertension) Patient with excellent blood pressure control, 108/74 in office today. Continues to utilize amlodipine/benazepril 10-40 mg daily, hydralazine 25 mg twice daily and metoprolol XL 25 mg daily. * Kareen Carmona APRN - 04/08/2025 9:45 AM EDTAssociated Order(s): Suture Removal Post-Procedure Diagnose(s): Status post fall Images from the original note were not included. Office Note Name: Yang Wesley : 1950 Chief Complaint Staple removal, Follow up ER visit Subjective History of Present Illness: Yang Wesley is a 75 y.o. male who presents today for follow-up after being evaluated in the emergency department of [facility]. On 04/01/2025 patient suffered fall in which he incurred posterior scalp laceration that required stapling as well as occipital bone fracture. Patient initially evaluated at [facility] but then transferred to where he underwent CT venogram of the head. No injury to the dural venous sinus on imaging. Patient was hemodynamically stable and in no acute distress, GCS was 15. Is not experiencing any focal neurologic defects. Neurosurgery was consulted in the setting of the skull fracture, ultimately opting for continued monitoring without intervention. Since herlast visit patient has also undergone nerve ablation for lumbar back pain with excellent benefit. Patient is now able to stand upright and not struggle to change positions. He does continue to use a cane for some ongoing bilateral lower extremity weakness. Patient also followed for hypertension with excellent blood pressure control in office today, 108/74. He has no further complaints or concernsto Review of Systems Constitutional: Negative for chills, fatigue and fever. Respiratory: Negative for cough and shortness of breath. Cardiovascular: Positive for leg swelling. Negative for chest pain and palpitations. Gastrointestinal: Negative for abdominal pain, constipation, diarrhea, nausea and vomiting. Musculoskeletal: Positive for arthralgias and back pain. Negative for neck pain and neck stiffness. Neurological: Positive for weakness and numbness. Negative for dizziness, light- headedness and headache. Hematological: Bruises/bleeds easily. Objective Past Medical History: Diagnosis Date Actinic keratosis ASHD (arteriosclerotic heart disease) Cellulitis of right lower limb COPD (chronic obstructive pulmonary disease) Diabetes mellitus, type 2 Diarrhea Fracture of one rib of right side Gastro-esophageal reflux disease with esophagitis Hyperlipidemia Hypertension Hypothyroidism Multiple subsegmental pulmonary emboli without acute cor pulmonale Nausea with vomiting Nephrolithiasis Nontraumatic hematoma of soft tissue NSTEMI (non-ST elevated myocardial infarction) 08/20/2011 Obesity MEREDITH (obstructive sleep apnea) Pneumonia due to coronavirus disease 2019 Prepatellar bursitis Recurrent septic Rash and other nonspecific skin eruption Right rib fracture secondary to a fall Thoracic aortic aneurysm Past Surgical History: Procedure Laterality Date CARDIAC CATHETERIZATION stenting Rt. mid Cor Art;recurrent CP 10/24/11, repeat cath, stable, stent patent COLONOSCOPY 03/01/2019 revealing 5 subcentimeter polyps, 3 of which were tubular adenomas, 2 hyperplastic polyps, recommended follow-up three-year repeat History reviewed. No pertinent family history. Vital Signs BP 108/74 (BP Location: Left arm, Patient Position: Sitting, Cuff Size: Adult) Pulse 65 Temp 97.8 ??F (36.6 ??C) (Temporal) Resp 16 Ht 190.5 cm (75 ) Wt (!) 142 kg (313 lb) SpO2 97% BMI39.12 kg/m?? Estimated body mass index is 39.12 kg/m?? as calculated from the following: Height as of this encounter: 190.5 cm (75 ). Weight as of this encounter: 142 kg (313 lb). Facility age limit for growth %kamila is 20 years. Physical Exam Vitals reviewed. Constitutional: Appearance: Normal appearance. HENT: Head: Normocephalic and atraumatic. Right Ear: Tympanic membrane, ear canal and external ear normal. Left Ear: Tympanic membrane, ear canal and external ear normal. Nose: Nose normal. Mouth/Throat: Mouth: Mucous membranes are moist. Pharynx: Oropharynx is clear. Eyes: Conjunctiva/sclera: Conjunctivae normal. Pupils: Pupils are equal, round, and reactive to light. Cardiovascular: Rate and Rhythm: Normal rate and regular rhythm. Pulses: Normal pulses. Heart sounds: Normal heart sounds. Pulmonary: Effort: Pulmonary effort is normal. Breath sounds: Normal breath sounds. Abdominal: General: Bowel sounds are normal. Palpations: Abdomen is soft. Musculoskeletal: Cervical back: Neck supple. Skin: General: Skin is warm and dry. Findings: Bruising present. Comments: Horizontal laceration noted to posterior scalp, well-healed with scabbing, [address] No drainage or other signs of infection, no warmth. Patient also noted to have underlying hematoma. Neurological: Mental Status: He is oriented to person, place, and time. Psychiatric: Mood and Affect: Mood normal. Behavior: Behavior normal. POCT Results (if applicable): Results for orders placed or performed in visit on 01/20/24 POC Glycosylated Hemoglobin (Hb A1C) Collection Time: 01/20/24 8:51 AM Specimen: Blood Result Value Ref Range Hemoglobin A1C 6.6 (A) 4.5 - 5.7 % Lot Number [id number] Expiration Date Suture Removal Date/Time: 04/08/2025 10:13 AM Performed by: Kareen Carmona APRN Authorized by: Kareen Carmona APRN Body area: head/neck Wound Appearance: clean [place] Removed: 4 Post-removal: antibiotic ointment applied Patient tolerance: patient tolerated the procedure well with no immediate complications Assessment and Plan Diagnoses and all orders for this visit: 1. Lumbar back pain (Primary) Assessment & Plan: Patient has been followed for quite some time by orthopedics, Dr. Walters for severe lumbar back pain.Initial failure to 3 epidural steroid injections. Two days ago patient underwent rhizotomy with excellent results. He is now able to stand upright, no longer struggling to go from sitting to standingposition. Patient rates his pain as being 90% resolved. Does have some bilateral lower extremity muscle weakness, likely due to being sedentary with back pain for the last several months. For into physical therapy for strength training. 2. Muscle weakness of lower extremity Assessment & Plan: Patient suffering from bilateral lower extremity muscle weakness due to deconditioning with prolonged course of severe chronic back pain. Placing referral to physical therapy at [facility] for further evaluation and treatment. Orders: - Ambulatory Referral to Physical Therapy for Evaluation & Treatment 3. Primary hypertension Assessment & Plan: Patient with excellent blood pressure control, 108/74 in office today. Continues to utilize amlodipine/benazepril 10-40 mg daily, hydralazine 25 mg twice daily and metoprolol XL 25 mg daily. 4. Status post fall Assessment & Plan: On 04/01/2025 patient suffered fall in which he incurred posterior scalp laceration that required stapling as well as occipital bone fracture. Patient initially evaluated at [facility] but then transferred to where he underwent CT venogram of the head. No injury to the dural venous sinus on imaging. Patient was hemodynamically stable and in no acute distress, GCS was 15. Is not experiencing any focalneurologic defects. Neurosurgery was consulted in the setting of the skull fracture, ultimately opting for continued monitoring without intervention. [place] removed in office today, procedure tolerated well. Patient instructed to avoid picking at scab, apply Neosporin ointment regularly Orders: - Suture Removal Follow Up Return if symptoms worsen or fail to improve. Kareen Carmona APRN documented in this encounter Plan of Treatment Not on file documented as of this encounter Procedures Procedure Name Priority Date/Time Associated Diagnosis Comments SUTURE REMOVAL Routine 04/08/2025 10:13 AM EDT Status post fall documented in this encounter Results * SUTURE REMOVAL (04/08/2025 10:13 AM EDT) Narrative Kareen Carmona APRN - 04/08/2025 10:13 AM EDT Kareen Carmona APRN 04/08/2025 10:15 AM Suture Removal Date/Time: 04/08/2025 10:13 AM Performed by: Kareen Carmona APRN Authorized by: Kareen Carmona APRN Body area: head/neck Wound Appearance: clean [place] Removed: 4 Post-removal: antibiotic ointment applied Patient tolerance: patient tolerated the procedure well with no immediate complications Kareen Carmona APRN PROCEDURE/MINOR SURGICAL OR DERABLES Final Result documented in this encounter Visit Diagnoses Diagnosis Lumbar back pain- Primary Lumbago Muscle weakness of lower extremity Muscle weakness (generalized) Primary hypertension Unspecified essential hypertension Status post fall documented in this encounter Care Teams Jail Guard Relationship Specialty Start Date End Date Kareen Carmona APRN [address] [place], [place] [id number] PCP - General Family Medicine 07/12/22 documented as of this encounter
--- OUTSIDE RECORDS SUMMARY | 2025-04-25 08:19 | XMS_ITS | Encounter Summary ---
Author Organization [facility] ([place], [place], [place], [place]) Address [address] [place] [address] Care Team Providers Care Juice Weigher Name Role Phone Kareen Carmona NP Primary Care Provider [phone] Fabián Gorman MD Unavailable Reason for Visit * Reason Comments Medication Refill Encounter Details Date Type Department Care Team (Late st Contact Info) Description 03/31/2023 Refill [facility] Cardiology [address] [place] [address], INDUSTRIAL PSYCHOLOGIST [address] [facility] [address] [place] [address] Primary hypertension Social History Tobacco Use Types [...] hypertension documented in this encounter Care Teams Juice Weigher Relationship Specialty Start Date End Date Kareen Carmona NP [address] [facility] [address] [place] [address] PCP - General Family Medicine 01/06/23 Fabián Gorman MD [address] [facility] [place] [address] It Senior Software Engineer Java Electrophysiology 06/18/24 documented as of this encounter
--- OUTSIDE RECORDS SUMMARY | 2025-04-25 08:19 | XMS_ITS | Clinical Summary ---
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 cardiology history of coronary artery disease, hypertension, hyperlipidemia, MEREDITH and bradycardia. Utilizing aspirin 81 mg daily. Assessment & Plan (10/06/2023 5:25 PM EST): Followed by cardiology history of coronary artery disease, hypertension, hyperlipidemia, MEREDITH and bradycardia. He was last evaluated by cardiology months ago where he was deemed stable with recommended continuance of current guideline directed therapy and addition of aspirin 81 mg daily. He also was ordered CT angio of the chest without contrast in 6 months for reevaluation of ascending aortic aneurysm NSTEMI (non-ST elevated myocardial infarction) 1 10/20/2010 Resolved Problems Problem Noted Date Diagnosed Date Resolved Date COPD (chronic obstructive pulmonary disease) 2 01/21/2024 Assessment & Plan (01/20/2024 9:19 AM EDT): Hypothyroid 07/12/2022 04/23/2023 Encounters Date Type Department Care Team Description 04/20/2025 Refill [facility] PRIMARY CARE [address] [place] [address] KATIE FLOERS [phone] Kareen Carmona APRN 04/08/2025 9:45 AM EDT Office Visit [facility] [address] [place] [address] KATIE FLORES [phone] Kareen Carmona, PAINTER HELPER Lumbar back pain (Primary Dx); Muscle weakness of lower extremity; Primary hypertension; Status post fall 04/08/2025 Travel 04/04/2025 Travel 04/01/2025 Refill [facility] [address] [place] [address] KATIE FLORES [phone] Kareen Carmona APRN 03/30/2025 Refill [facility] [address] [place] [address] KATIE FLORES [phone] Kareen Carmona, PAINTER HELPER 03/23/2025 Refill [facility] [address] [place] [address] [place] [address] Kareen Carmona, PAINTER HELPER 03/21/2025 9:00 AM EDT Office Visit [address] [place] [address] Kareen Carmona, PAINTER HELPER Mixed hyperlipidemia (Primary Dx); MEREDITH (obstructive sleep apnea); Class 3 severe obesity due to excess calories with serious comorbidity and body mass index (BMI) of 40.0 to 44.9 in adult; Aneurysm of ascending aorta without rupture; Nephrolithiasis; Primary hypertension; Gastroesophageal reflux disease without esophagitis; Ex-cigarette smoker; Type 2 diabetes mellitus with hyperglycemia, without long-term current use of insulin; Atherosclerosis of [place] coronary artery of [place] heart without angina pectoris; Prostate cancer screening; Need for hepatitis C screening test; Lumbar back pain; Rhinorrhea; Medicare annual wellness visit, subsequent; Annual physical exam 03/21/2025 Travel 02/28/2025 Refill [facility] PRIMARY [address] [place] [address] Kareen Carmona, PAINTER HELPER 02/28/[address] [facility] PRIMARY [address] [place] [address] Kareen Carmona, PAINTER HELPER Type 2 diabetes mellitus with hyperglycemia, without long-term current use of insulin 02/18/2025 Refill [facility] PRIMARY [address] [place] [address] Kareen Carmona, PAINTER HELPER Type 2 diabetes mellitus with hyperglycemia, without long-term current use of insulin 01/31/2025 Refill [facility] PRIMARY [address] [place] [address] Kareen Carmona, PAINTER HELPER from Last 3 Months Immunizations Immunization Administration Dates Next Due FLUAD TRI 65YR+ 07/04/2017 Fluad Quad 65+ 08/01/2020 Influenza, Unspecified 07/26/2018 Pneumococcal Conjugate 13-Valent (PCV13) 019 Pneumococcal Polysaccharide (PPSV23) 08/10/2016 Tdap 07/26/2018 Zostavax 09/10/2015 Social History Tobacco Use Types Packs/Day Years Used Date Smoking Tobacco: Never Smokeless Tobacco: Never Tobacco Cessation:Counseling Given: Not Answered Alcohol Use Standard Drinks/Week Comments Never 0 [...] Mass Index 39.12 04/08/2025 9:34 AM EDT Plan of Treatment Health Maintenance Due Date Last Done Comments URINE MICROALBUMIN-CREATININ E RATIO (uACR) 1962 COLOGUARD 1997 COLON CANCER SCREENING 5 YEA R SIGMOIDOSCOPY 1997 CT COLONOGRAPHY 1997 FECAL OCCULT BLOOD TEST 1997 FIT Testing (1 year) 1997 HEPATITIS C SCREENING 05/01/2022 DIABETIC EYE EXAM 07/16/2024 07/16/2023 HEMOGLOBIN A1C 07/21/2024 01/20/2024, 10/21/2023, 04/23/2023 LIPID PANEL 10/21/2024 10/21/2023 COVID-19 Vaccine (2023-2 5 season) 2025 Postponed from 05/30 (Patient Refused) ZOSTER VACCINE (2 of 3) 06/06/2025 09/10/2015 Post poned from 11/05/2015 (Patient Refused) INFLUENZA VACCINE 06/29/2025 08/01/2020, 07/26/2018, 07/04/2017 Pneumococcal Vaccine 50+ (3 of 3 - PCV20 or PCV21) 09/17/2025 08/13/2019, 08/10/2016 Postponed from 08/13/2024 (Patient Refused) ANNUAL WELLNESS VISIT 03/21/2026 03/21/2025 , 01/20/2024 DIABETIC FOOT EXAM 03/21/2026 03/21/2025, 03/21/2025, 03/21/2025 TDAP/TD VACCINES (2 - Td or Tdap) 07/26/2028 07/26/2018 COLONOSCOPY 02/06/2031 02/06/2021 COLORECTAL CANCER SCREENING 02/06/2031 Procedures Procedure Name Priority Date/Time Associated Diagnosis Comments SUTURE REMOVAL Routine 04/08/2025 10:13 AM EDT Status post fall ECG 12-LEAD Routine 03/21/2025 12:46 PM EDT Atherosclerosis of [place] coronary artery of [place] heart without angina pectoris SCANNED EKG 03/21/2025 POCT GLYCOSYLATED HEMOGLOBIN (HGB A1C) Routine 01/20/2024 8:51 AM EDT Type 2 diabetes mellitus with hyperglycemia, without long-term current use of insulin LIPID PANEL Routine 10/21/2023 9:28 AM EST Mixed hyperlipidemia from Last 3 Months or Most Recently Relevant to Health Maintenance Results * SUTURE REMOVAL (04/08/2025 10:13 AM EDT) Narrative Kareen Carmona APRN - 04/08/2025 10:13 AM EDT Kareen Carmona APRN 04/08/2025 10:15 AM Suture Removal Date/Time: 04/08/2025 10:13 AM Performed by: Kareen Carmona APRN Authorized by: Kareen Carmona APRN Body area: head/neck Wound Appearance: clean [facility] Removed: 4 Post-removal: antibiotic ointment applied Patient tolerance: patient tolerated the procedure well with no immediate complications Kareen Carmona APRN PROCEDURE/MINOR SURGICAL OR DERABLES Final Result * ECG 12-LEAD (03/21/2025 12:46 PM EDT) [...] Carmona APRN ECG ORDERABLES Final Resul t Performing Organization Address City/[facility]/ZIP Co de Phone Number ECG * ECG Scan (03/21/2025) Kareen Carmona APRN ECG ORDERABLES Final Resul t * (ABNORMAL) POC Glycosylated Hemoglobin (Hb A1C) (01/20/2024 8:51 AM EDT) Hemoglobin A1C 6.6(A) 4.5 - 5.7 % [facility] Lot Number [id number] [facility] Expiration Date [facility] Blood 01/20/2024 8:51 AM EDT Kareen Carmona APRN POINT OF CARE TEST ORDERABL ES Final Result [facility]
[address] [place] [address], * Lipid Panel (10/21/2023 9:28 AM EST) Total Cholesterol 103 100 - 199 mg/dL [facility] Triglycerides 101 0 - 149 mg/dL [facility] HDL Cholesterol 43 >39 mg/dL [facility] VLDL Cholesterol Peyman 19 5 - 40 mg/dL [facility] LDL Chol Calc (NIH) 41 0 - 99 mg/dL [facility] Blood Structure of left upper limb / Unknown 10/21/2023 9:28 AM EST 10/21/2023 Comment:Blood Release to quique magaly Perkins [facility] ([facility]ATORY) - 10/22/2023 1:06 PM EST Performed at: - [facility] [address] [place], [place] [id number] Appliance Counselor: Enrique De Dios PhD, Phone: [phone] Kareen Carmona APRN LAB BLOOD ORDERABLES Final Result [facility] [email or web address] [facility] (AMBULATORY) [address] [place] [address], [facility] [address] [place] [address], [place] [phone] from Last 3 Months or Most Recently Relevant to Health Maintenance Insurance AETNA MEDICARE ADVANTAGE Care Teams Preparation Center Coordinator Relationship Specialty Start Date End Date Kareen Carmona APRN [address] [place] [address] PCP - General Family Medicine 07/12/22
--- OUTSIDE RECORDS SUMMARY | 2025-04-25 08:19 | XMS_ITS | Encounter Summary ---
[facility] Organization [facility] Address [address] [place] [address] Care Team Providers Care Radiologic Tech Name Role Phone Kareen Carmona TOWBOAT CAPTAIN Primary Care Provider [phone] Reason for Visit * Reason Comments Med Refill Encounter Details Date Type Department Care Team (Late st Contact Info) Description 04/20/2025 Refill [facility] PRIMARY CARE [address] [place] [phone] Kareen Carmona, TOWBOAT CAPTAIN [address] [place] [address] Social History Tobacco Use Types Packs/Day Years [...] as of this encounter Miscellaneous Notes * Telephone Encounter - Jenniffer Carranza - 04/20/2025 9:38 AM EDT Last seen on 04/08/2025. TF documented in this encounter Plan of Treatment Not on file documented as of this encounter Visit Diagnoses Not on filedocumented in this encounter Care Teams Radiologic Tech Relationship Specialty Start Date End Date Kareen Carmona APRN [address] [place] [id number] PCP - General Family Medicine 07/12/22 documented as of this encounter
--- OUTSIDE RECORDS SUMMARY | 2025-04-25 08:19 | XMS_ITS | Encounter Summary ---
Author Organization [facility] Address [address] [place] [address] Care Team Providers Care Doctor Of Medicine Name Role Phone Kareen Carmona EPIC ANALYST Primary Care Provider Encounter Details Date Type Department Care Team (Latest Contact Info) Description 04/08/2025 Travel Social History Tobacco Use Types Packs/Day Years [...] on filedocumented in this encounter Care Teams Doctor Of Medicine Relationship Specialty Start Date End Date Kareen Carmona, EPIC ANALYST [address] [place] [address] PCP - General Family Medicine 07/12/22 documented as of this encounter
--- OUTSIDE RECORDS SUMMARY | 2025-04-25 08:20 | XMS_ITS | Encounter Summary ---
Author Organization [employer] ([place], [place], [place], [place]) Address [address] [place] [address] Care Team Providers Care Dip Filler Name Role Phone Kareen Carmona NP Primary Care Provider [phone] Fabián Gorman MD Unavailable Reason for Visit * Reason Onset Date Comments Medication Refill Medication Refill 11/19/2022 Encounter Details Date Type Department Care Team (Late st Contact Info) Description 11/18/2022 Telephone [facility] Cardiology [address] [place] [address] Manuel Harry MD [address] [facility] [address] [place], [place] [id number] Medication Refill; Medication Refill Social History Tobacco [...] hypertension documented in this encounter Care Teams Dip Filler Relationship Specialty Start Date End Date Kareen Carmona NP [address] [facility] [address] [place], [place] [phone] PCP - General Family Medicine 01/06/23 Fabián Gorman MD [address] [place] [address] Inverform Machine Operator Electrophysiology 06/18/24 documented as of this encounter
--- OUTSIDE RECORDS SUMMARY | 2025-04-25 08:20 | XMS_ITS | Referral Summary ---
Author Organization [employer] ([place], [place], [place], [place]) Address [address] [place] [address] Care Team Providers Care Doctor Of Veterinary Medicine Name Role Phone Kareen Carmona NP Primary Care Provider [phone] Fabián Gorman MD Unavailable Encounters Date Type Department Care Team Description 04/23/2025 Refill [facility] Cardiology [address] [place] [phone] APRN 03/31/2025 5:00 AM EDT Clinical Support [facility] Electrophysiology [address] [place] [phone] Fabián Gorman MD Encounter for adjustment or management of cardiac device (Primary Dx); Recurrent syncope; Implantable loop recorder present 02/28/2025 5:00 AM EDT Clinical Support [facility] Electrophysiology [address] [place] [phone] Bharat Carmichael MD Encounter for adjustment or management of cardiac device (Primary Dx); Recurrent syncope; Implantable loop recorder present 01/26/2025 5:00 AM EDT Clinical Support [facility] Electrophysiology [address] [place] [phone] Fabián Gorman MD Encounter for adjustment [...] (11/19/2022): 4.4cm per CT of chest from [facility], 10/2021 CT of chest no [...] (11/19/2022): Xarelto therapy complete Abnormal electrocardiography 12/08/2019 01/28/202402/24/2024 Immunizations Name Administration Dates Next Due INFLUENZA QIV ADJUVANTED PF IM ([id number]) 08/01/20 INFLUENZA TRIVALENT ADJUVANTED PF IM 07/04/2017 [...] Date Dimitri rded Speak language other than Citizen Of [place] at home Not on file 10/14/2023 Want [...] on file Medical Devices Implanted Type Area Home Improvement Contractor Device Identifier Shelf Expiration Date Model / Serial / Lot Loop Recorder-01/28/20 Implanted:01/27 by Fabián Gorman MD (Quantity not on file) LOOP RECORDER [employer] LINQ 2 / [id number] / Description:02-18-2024 SPOKE TO CHANTELLE AND RECONNECT RELAY BOX AND INSTRUCTED YANG TO DO A MANUAL DOWNLOAD Insurance AETNA MCR ADV Advance Directives For more information, please contact: [phone] * Full Code (Latest Code Status on File) Date Activated Date Inactivated Comments 01/28/2024 9:53 AM 01/29/2024 4:27 AM * Full Code Date Activated Date Inactivated Comments 01/27/2024 8:59 PM 01/28/2024 9:53 AM Care Teams Doctor Of Veterinary Medicine Relationship Specialty Start Date End Date Kareen Carmona NP [address] [facility] [address] [place] [address] PCP - General Family Medicine 01/06/23 Fabián Gorman MD [address] [facility] [address] [place] [address] Hand Bander Electrophysiology 06/18/24
--- OUTSIDE RECORDS SUMMARY | 2025-04-25 08:20 | XMS_ITS | Clinical Summary ---
Author Organization [employer] ([place], [place], [place], [place]) Address [address] [place] [address] Care Team Providers Care Pelt Inspector Name Role Phone Kareen Carmona NP Primary Care Provider [phone] Fabián Gorman MD Unavailable Allergies No known [...] (11/19/2022): 4.4cm per CT of chest from [facility], 10/2021 CT of chest no change in [...] Type Department Care Team Description 04/23/2025 Refill [facility] Cardiology [address] [place], [place] [phone] APRN 03/31/2025 5:00 AM EDT Clinical Support [facility] Electrophysiology [address] [place] [phone] Fabián Gorman MD Encounter for adjustment or management of cardiac device (Primary Dx); Recurrent syncope; Implantable loop recorder present 02/28/2025 5:00 AM EDT Clinical Support [facility] Electrophysiology [address] [place] [phone] Bharat Carmichael MD Encounter for adjustment or management of cardiac device (Primary Dx); Recurrent syncope; Implantable loop recorder present 01/26/2025 5:00 AM EDT Clinical Support [facility] Electrophysiology [address] [place] [phone] Fabián Gorman MD Encounter for adjustment or management of cardiac device (Primary Dx); Recurrent syncope; Implantable loop recorder present from Last 3 Months Immunizations Name Administration Dates Next Due INFLUENZA QIV ADJUVANTED PF IM ([id number]) 08/01/20 INFLUENZA TRIVALENT ADJUVANTED PF IM 07/04/2017 [...] Date Dimitri rded Speak language other than Guamanian at home Not on file 10/14/2023 Want [...] Hemoglobin A1C 01/13/2023 COVID-19 VACCINE (1 - season) 2024 Pneumococcal 50+ years (3 of 3 - PCV20 or PCV21) 08/13/2024 08/13/2019, 08/10/2016 Falls Risk Screening 09/29/2024 Tobacco Cessation Counseling and Screening (12+) 05/18/2025 05/18/2024 Influenza Vaccine (#1) 2025 08/01/2020, 2016 DTAP/TDAP/TD VACCINES (2 - Td or Tdap) 07/26/2028 Medical Devices Implanted Type Area Aerospace Medicine Physician Device Identifier Shelf Expiration Date Model / Serial / Lot Loop Recorder-01/28/20 24 Implanted:01/27 by Fabián Gorman MD (Quantity not on file) LOOP RECORDER [employer] LINQ 2 / [id number] / Description:02-18-2024 SPOKE TO CHANTELLE AND RECONNECT RELAY BOX AND INSTRUCTED YANG TO DO A MANUAL DOWNLOAD Insurance AETNA [facility] ADV Advance Directives For more information, please contact: [phone] * Full Code (Latest Code Status on File) Date Activated Date Inactivated Comments 01/28/2024 9:53 AM 01/29/2024 4:27 AM * Full Code Date Activated Date Inactivated Comments 01/27/2024 8:59 PM 01/28/2024 9:53 AM Care Teams Pelt Inspector Relationship Specialty Start Date End Date Kareen Carmona NP [address] [facility] [address] [place] [phone] PCP - General Family Medicine 01/06/23 Fabián Gorman MD [address] [facility] [address] [place] [address] Domestic Violence Advocate Electrophysiology 06/18/24
--- OUTSIDE RECORDS SUMMARY | 2025-04-25 08:20 | XMS_ITS | Encounter Summary ---
Author Organization [facility] Address [address] [place] [address] Care Team Providers Care Material Requirements Planning Manager Name Role Phone Kareen Carmona NETWORK SYSTEMS INTEGRATOR Primary Care Provider [phone] Reason for Visit * Reason Comments Med Refill Encounter Details Date Type Department Care Team (Late st Contact Info) Description 02/28/2025 Refill [facility] PRIMARY CARE [address] [place] [phone] Kareen Carmona, NETWORK SYSTEMS INTEGRATOR [address] [place] [address] Type 2 diabetes mellitus with hyperglycemia, without long-term current use of insulin Social History Tobacco Use Types Packs/Day Years Used Date Smoking Tobacco: Never Smokeless Tobacco: Never Alcohol Use Standard Drinks/Week Comments Never 0 (1 standard drink = 0.6 oz pur e alcohol) PHQ-2 Answer Date Recorded Retired PHQ-9: Brief Depression Severity Measure Score 0 01/20/2024 Sex and Gender Information Value Date Recorded Sex Assigned at Not on file Legal Sex Male 3:05 PM EDT Gender Identity Not on file Sexual Orientation Not on file documented as of this encounter Miscellaneous Notes * Telephone Encounter - Cailin Centeno MA - 02/28/2025 11:25 AM EDT Rx sent documented in this encounter Plan of Treatment Not on file documented as of this encounter Visit Diagnoses Diagnosis Type 2 diabetes mellitus with hyperglycemia, without long-term current use of insulin documented in this encounter Care Teams Material Requirements Planning Manager Relationship Specialty Start Date End Date Kareen Carmona APRN [address] [place], [place] [phone] PCP - General Family Medicine 07/12/22 documented as of this encounter
--- OUTSIDE RECORDS SUMMARY | 2025-04-25 08:20 | XMS_ITS | Encounter Summary ---
Author Organization [facility] Address [address] [place] [address] Care Team Providers Care Pilot Teacher Name Role Phone Kareen Carmona Arcelia PA Primary Care Provider [phone] Encounter Details Date Type Department Care Team (Late st Contact Info) Description 03/31/2025 Orders Only External Location [address] [place] [address] Provider, External Social History Tobacco Use Types Packs/Day Years Used Date Smoking Tobacco: Never Assessed Sex and Gender Information Value Date Recorded Sex Assigned at Not on file Legal Sex Male 6:56 PM EDT Gender Identity Not on file Sexual Orientation Not on file documented as of this encounter Functional Status * Calculated C-SSRS [...] Gipson RN documented as of this encounter Plan of Treatment Not on file documented as of this encounter Procedures Procedure Name Priority Date/Time Associated Diagnosis Comments CT OUTSIDE IMAGES 03/31/2025 11:39 PM EDT documented in this encounter Results * CT OUTSIDE IMAGES (03/31/2025 11:39 PM EDT) Anatomical Region Laterality Modality Computed Tomogra phy 03/31/2025 11:3 9 PM EDT us External Provider IMG CT PROCEDURES Final Result documented in this encounter Visit Diagnoses Not on filedocumented in this encounter Care Teams Pilot Teacher Relationship Specialty Start Date End Date Kareen Carmona APRN [address] [place] [address] PCP - General 04/01/25 documented as of this encounter
--- OUTSIDE RECORDS SUMMARY | 2025-04-25 08:20 | XMS_ITS | Encounter Summary ---
Author Organization [employer] ([place], [place], [place], [place]) Address [address] [place] [address] Care Team Providers Care Assembler Installer General Name Role Phone Kareen Carmona NP Primary Care Provider [phone] Fabián Gorman MD Unavailable Encounter Details Date Type Department Care Team (Late st Contact Info) Description 03/29/2022 Transcribed Document [facility] Family Medicine [address] [place] [address] ProviderVarun MD [address] [place] [address] Social History Tobacco Use Types Packs/Day Years Used Date Smoking Tobacco: Never Assessed Family and Community Support Answer Wai e Recorded Help with Day to Day Activities Not on file 10/14/2023 Feeling Lonely or Isolated Not on file 10/14 Educational Attainment Answer Date Dimitri rded Speak language other than [place] at home Not on file 10/14/2023 Want [...] Normal left ventricular systolic function post stress. /[id number] Troy Mayes MD SSL/AQ / SSL / MODL /[id number] CC: MD Jarred Buchanan MD Electronically signed by Troy [facility] Conversion Stem Setter Emilianoner at 01/15/2023 7:34 AM CDT documented in this encounter Plan of Treatment Not on file documented as of this encounter Visit Diagnoses Not on filedocumented in this encounter Care Teams Assembler Installer General Relationship Specialty Start Date End Date Kareen Carmona NP [address] [place] [address] PCP - General Family Medicine 01/06/23 Fabián Gorman MD [address] [place] [address] Shaft Headman Electrophysiology 06/18/24 documented as of this encounter
--- OUTSIDE RECORDS SUMMARY | 2025-04-25 08:20 | XMS_ITS | Clinical Summary ---
Author Organization Healthcare Address [address] [place] [address] Care Team Providers Care Assembly Stock Supervisor Name Role Phone Kareen Carmona Arcelia LINER ASSEMBLER Primary Care Provider [phone] Encounters Date Type Department Care Team Description 04/01/2025 3:44 AM EDT - 04/01/2025 9:56 AM EDT Emergency [facility] [address] [place] [address] Jose Armando Thomas MD Humphries, Roger L, MD Fall, initial encounter (Primary Dx); Head injury, initial encounter Discharge Disposition: Home or Self Care 04/01/2025 Travel 03/31/2025 Orders Only External Location [address] [place] [phone] Provider, External 03/31/2025 Orders Only External Location [address] [place] [id number] Provider, External from Last 3 Months Social History Tobacco Use Types Packs/Day Years [...] - - Body Mass Index - - Plan of Treatment Health Maintenance Due Date Last Done Comments [facility]-Depression Screening 1952 [facility]-Hepatitis C Screening 1952 [facility]-Medicare Annual Wellness (AWV) 1950 [facility]-/Child/Adol SDOH Screenings 1952 [facility]- SDOH Screenings 1970 [facility]-Adult SDOH Screenings 1970 CT Colonography 1997 Colonoscopy 1997 FIT-DNA 1997 FIT 1997 FOBT 1997 Sigmoidoscopy 1997 [facility]-Colorectal Cancer Screening 1997 [facility]-Zoster Vaccines (2 of 3) 11/05/2015 09/10/2015 [id number] Vaccine (1 - 2023- season) 2024 [facility]-Pneumococcal Vaccine: 50 + Years (3 of 3 - PCV20 or PCV21) 08/13/2024 08/13/2019, 08/10/2016 [facility]-Influenza Vaccine (#1) 05/30/202508/01, 07/26/2018, 07/04/2017 [facility]-RSV Vaccine: 60+ Years o r (1 - 1-dose 75+ series) 2027 [facility]-DTaP,Tdap,and Td Vaccine s (2 - Td or Tdap) 07/26/2028 07/26/2018 HPV Vaccines Aged Out No longer eligi ble based on patient's age to complete this topic [facility]-HIB Vaccines Aged Out No longer e ligible based on patient's age to complete this topic [facility]-Hepatitis A Vaccines Aged Out No longer eligible based on patient's age to complete this topic [facility]-IPV Vaccines Aged Out No longer e ligible based on patient's age to complete this topic [facility]-Rotavirus Vaccines Aged Out No lo nger eligible based on patient's age to complete this topic Procedures Procedure Name Priority Date/Time Associated Diagnosis Comments CT VENOGRAM HEAD STAT 04/01/2025 7:22 AM EDT ED LACERATION REPAIR Routine 04/01/2025 3:44 AM EDT SUTURE REMOVAL Routine 04/01/2025 3:[address] OUTSIDE IMAGES 03/31/2025 11: [address] OUTSIDE IMAGES 03/31/2025 11: 39 PM EDT from Last 3 Months Results * CT Venogram Head (04/01/2025 7:22 [...] occipital scalp soft tissue injury with skin cora in place. Small amount of soft tissue [...] Redemonstrated occipital scalp soft tissue injury withskin cora in place. Small amount of soft tissue [...] Standard Debridement: None Skin repair: Repair method: Cora Number of cora: 4 Approximation: Approximation: Close Repair type: Repair [...] discussed: yes Risks discussed: Bleeding and pain [place] protocol: Patient identity confirmed: Verbally with patient Attending Supervision?: no Location: Location: Head/neck Head/neck location: Scalp Procedure details: Wound appearance: No signs of infection Number of cora removed: 5 Post-procedure details: Procedure completion: Tolerated Result [facility] Pepe Thao MD IN CLINIC/BEDSIDE ORDERABLE S Final Result * CT OUTSIDE IMAGES (03/31/2025 11:42 PM EDT) Only the most recent of2 resultswithin the time period is included. Anatomical Region Laterality Modality Computed Tomogra phy 03/31/2025 11:4 2 PM EDT External Provider IMG CT PROCEDURES Final Result from Last 3 Months Insurance [employer] MEDICARE Care Teams Assembly Stock Supervisor Relationship Specialty Start Date End Date Kareen Carmona, THIERNO [address] [place] [address] PCP - General 04/01/25
--- OUTSIDE RECORDS SUMMARY | 2025-04-25 08:20 | XMS_ITS | Encounter Summary ---
Author Organization [facility] Address [address] [place] [address] Care Team Providers Care Business Banking Officer Name Role Phone Kareen Carmona FRUIT OR NUT FARMER Primary Care Provider [phone] Reason for Visit * Reason Comments Med Refill Encounter Details Date Type Department Care Team (Late st Contact Info) Description 02/28/2025 Refill [facility] [address] [place] [phone] Kareen Carmona, FRUIT OR NUT FARMER [address] [place] [address] Social History Tobacco Use Types [...] Encounter - Cailin Centeno MA - 02/28/2025 5:04 PM EDT Rx sent documented in this encounter Plan of Treatment Not on file documented as of this encounter Visit Diagnoses Not on filedocumented in this encounter Care Teams Business Banking Officer Relationship Specialty Start Date End Date Kareen Carmona APRN [address] [place] [id number] PCP - General Family Medicine 07/12/22 documented as of this encounter
--- OUTSIDE RECORDS SUMMARY | 2025-04-25 08:20 | XMS_ITS | Encounter Summary ---
Author Organization [facility] Address [address] [place] [address] Care Team Providers Care Sheet Rock Installation Helper Name Role Phone Kareen Carmona FILM MOUNTER Primary Care Provider [phone] Encounter Details Date Type Department Care Team (Latest Contact Info) Description 04/01/2025 Travel Social History Tobacco Use Types Packs/Day [...] on filedocumented in this encounter Care Teams Sheet Rock Installation Helper Relationship Specialty Start Date End Date Kareen Carmona APRN [address] [place] [address] PCP - General 04/01/25 documented as of this encounter
--- OUTSIDE RECORDS SUMMARY | 2025-04-25 08:20 | XMS_ITS | Encounter Summary ---
Author Organization [facility] Address [address] [place] [address] Care Team Providers Care Commercial Green Retrofit Architect Name Role Phone Kareen Carmona DECK ENGINEER Primary Care Provider [phone] Reason for Visit * Reason Comments Med Refill Encounter Details Date Type Department Care Team (Late st Contact Info) Description 03/23/[address] [facility] [address] [place] [phone] Kareen Carmona, DECK ENGINEER [address] [place] [address] Social History Tobacco Use Types [...] Telephone Encounter - Cailin Centeno MA - 03/23/2025 3:09 PM EDT Rx sent documented in this encounter Plan of Treatment Not on file documented as of this encounter Visit Diagnoses Not on filedocumented in this encounter Care Teams Commercial Green Retrofit Architect Relationship Specialty Start Date End Date Kareen Carmona, DECK ENGINEER [address] [place] [address] PCP - General Family Medicine 07/12/22 documented as of this encounter
--- OUTSIDE RECORDS SUMMARY | 2025-04-25 08:20 | XMS_ITS | Encounter Summary ---
Author Organization Healthcare Address [address] [place] [address] Care Team Providers Care Cashier Credit Name Role Phone Kareen Carmona Arcelia PA Primary Care Provider [phone] Encounter Details Date Type Department Care Team (Late st Contact Info) Description 03/31/2025 Orders Only External Location [address] [place] [address] Provider, External Social History Tobacco Use Types [...] Associated Diagnosis Comments CT OUTSIDE IMAGES 03/31/2025 11:42 PM EDT documented in this encounter Results * CT OUTSIDE IMAGES (03/31/2025 11:42 PM EDT) Anatomical Region Laterality Modality Computed Tomogra phy 03/31/2025 11:4 2 PM EDT us External Provider IMG CT PROCEDURES Final Result documented in this encounter Visit Diagnoses Not on filedocumented in this encounter Care Teams Cashier Credit Relationship Specialty Start Date End Date Kareen Carmona APRN [address] [place] [address] PCP - General 04/01/25 documented as of this encounter
--- OUTSIDE RECORDS SUMMARY | 2025-04-25 08:20 | XMS_ITS | Encounter Summary ---
Author Organization [employer] ([place] Address [address] [place] [address] Care Team Providers Care Independent Marketing Consultant Name Role Phone Kristine, Kareen NP Primary Care Provider [phone] Fabián Gorman MD Unavailable Encounter Details Date Type Department Care Team (Late st Contact Info) Description 01/03/2020 Transcribed Document [facility] Cardiology [address] [place] [phone] Manuel Harry MD [address] [facility] [address] [place] [address] Social History Tobacco Use Types Packs/Day Years [...] ECG negative for diagnostic criteria of ischemia. /[id number] Manuel Harry MD TLG/AQ / TLG / MODL /[id number] documented in this encounter Plan of Treatment Not on file documented as of this encounter Visit Diagnoses Not on filedocumented in this encounter Care Teams Independent Marketing Consultant Relationship Specialty [place] [address] [place] [address] [address] [place] [address] PCP - General Family Medicine 01/06/23 Fabián [place] [address] [place] [address] [address] [place], [place] [id number] [facility] Electrophysiology 06/18/24 documented as of this encounter
--- OUTSIDE RECORDS SUMMARY | 2025-04-25 08:20 | XMS_ITS | Encounter Summary ---
Author Organization [facility] Address [address] [place] [id number] Care Team Providers Care [place] Support Worker Name Role Phone Kareen Carmona AIRPLANE PILOT PHOTOGRAMMETRY Primary Care Provider [phone] Reason for Visit * Reason Comments Med Refill Encounter Details Date Type Department Care Team (Late st Contact Info) Description 03/30/2025 Refill [facility] [address] [place] [phone] Kareen Carmona APRN [address] [place], [place] [id number] Social History Tobacco Use Types Packs/Day Years [...] on filedocumented in this encounter Care Teams Whanau Support Worker Relationship Specialty Start Date End Date Kareen Carmona APRN [address] [place], [place] [phone] PCP - General Family Medicine 07/12/22 documented as of this encounter
--- OUTSIDE RECORDS SUMMARY | 2025-04-25 08:21 | XMS_ITS | Encounter Summary ---
Author Organization [facility] Address [address] [place] [address] Care Team Providers Care Furnace Filler Name Role Phone Kareen Carmona ENGINEER STEAM Primary Care Provider Encounter Details Date Type Department Care Team (Latest Contact Info) Description 04/04/2025 Travel Social History Tobacco Use Types Packs/Day [...] on filedocumented in this encounter Care Teams Furnace Filler Relationship Specialty Start Date End Date Kareen Carmona, ENGINEER STEAM [address] [place] [address] PCP - General Family Medicine 07/12/22 documented as of this encounter
--- OUTSIDE RECORDS SUMMARY | 2025-04-25 08:21 | XMS_ITS | Encounter Summary ---
Author Organization [facility] Address [address] [place] [address] Care Team Providers Care Cathode Maker Name Role Phone Kareen Carmona BUDGET OFFICER Primary Care Provider [phone] Reason for Visit * Reason Comments Med Refill Encounter Details Date Type Department Care Team (Late st Contact Info) Description 04/01/2025 Refill [facility] [address] [place] [phone] Kareen Carmona, BUDGET OFFICER [address] [place] [address] Social History Tobacco Use Types [...] Telephone Encounter - Cailin Centeno MA - 04/04/2025 8:27 AM EDT Rx sent documented in this encounter Plan of Treatment Not on file documented as of this encounter Visit Diagnoses Not on filedocumented in this encounter Care Teams Cathode Maker Relationship Specialty Start Date End Date Kareen Carmona, BUDGET OFFICER [address] [place] [address] PCP - General Family Medicine 07/12/22 documented as of this encounter
--- OUTSIDE RECORDS SUMMARY | 2025-04-25 08:21 | XMS_ITS | Encounter Summary ---
Author Organization [facility] Address [address] [place] [address] Care Team Providers Care Joy Operator Name Role Phone Kareen Carmona EMERGENCY COMMUNICATIONS OFFICER Primary Care Provider [phone] Encounter Details Date Type Department Care Team (Latest Contact Info) Description 03/21/2025 Travel Social History Tobacco Use Types Packs/Day [...] documented as of this encounter Functional Status documented as of this encounter Plan of Treatment Not on file documented as of this encounter Visit Diagnoses Not on filedocumented in this encounter Care Teams Joy Operator Relationship Specialty Start Date End Date Kareen Carmona, EMERGENCY COMMUNICATIONS OFFICER [address] [place] [address] PCP - General Family Medicine 07/12/22 documented as of this encounter
--- OUTSIDE RECORDS SUMMARY | 2025-04-25 08:23 | XMS_ITS | Encounter Summary ---
Author Organization [employer] ([place]) Address [address] [place] [address] Care Team Providers Care Casino Cage Manager Name Role Phone Kareen Carmona NP Primary Care Provider [phone] Fabián Gorman MD Unavailable Reason for Visit * Reason Comments Medication Refill Encounter Details Date Type Department Care Team (Late st Contact Info) Description 10/14/2023 Refill [facility]iology [address] [place] [address], SPECIAL PROCEDURES TECH [address] [facility] [address] [place] [address] Primary hypertension Social History Tobacco Use Types [...] Date Dimitri rded Speak language other than [place] at home Not on file 10/14/2023 Want [...] hypertension documented in this encounter Care Teams Casino Cage Manager Relationship Specialty Start Date End Date Kareen Carmona NP [address] [facility] [address] [place] [address] PCP - General Family Medicine 01/06/23 Fabián Gorman MD [address] [facility] [address] [place] [id number] Office Support Assistant Electrophysiology 06/18/24 documented as of this encounter
--- OUTSIDE RECORDS SUMMARY | 2025-04-25 08:23 | XMS_ITS | Encounter Summary ---
Author Organization [facility] Address [address] [place] [address] Care Team Providers Care Zoology Professor Name Role Phone Kareen Carmona INSTRUMENT DESIGNER Primary Care Provider [phone] Reason for Visit * Reason Comments Med Refill Encounter Details Date Type Department Care Team (Late st Contact Info) Description 10/06/2023 Refill [facility] [address] [place] [phone] Kareen Carmona APRN [address] [place], [place] [phone] Bilateral lower extremity edema; Primary hypertension Social History Tobacco Use Types Packs/Day Years Used Date Smoking Tobacco: Never Smokeless Tobacco: Never Alcohol Use Standard Drinks/Week Comments Never 0 (1 standard drink = 0.6 oz pur e alcohol) PHQ-2 Answer Date Recorded Retired PHQ-9: Brief Depression Severity Measure Score 0 10/06/2023 Sex and Gender Information Value Date Recorded Sex Assigned at Not on file Legal Sex Male 3:05 PM EDT Gender Identity Not on file Sexual Orientation Not on file documented as of this encounter Plan of Treatment Not on file documented as of this encounter Visit Diagnoses Diagnosis Bilateral lower extremity edema Primary hypertension Unspecified essential hypertension documented in this encounter Care Teams Zoology Professor Relationship Specialty Start Date End Date Kareen Carmona APRN [address] [place] [address] [phone] (Fax) PCP - General Family Medicine 07/12/22 documented as of this encounter
--- OUTSIDE RECORDS SUMMARY | 2025-04-25 08:23 | XMS_ITS | Encounter Summary ---
Author Organization [employer] ([place], [place], [place], [place]) Address [address] [place] [address] Care Team Providers Care Lcpc Name Role Phone Kareen Carmona NP Primary Care Provider [phone] Fabián Gorman MD Unavailable Reason for Visit * Reason Comments Medication Refill Encounter Details Date Type Department Care Team (Late st Contact Info) Description 04/23/2025 Refill [facility] Cardiology [address] [place] [address], SURGICAL CLINICAL REVIEWER [address] [facility] [address] [place] [address] Social History Tobacco Use Types Packs/Day Years [...] Date Dimitri rded Speak language other than [place]inames[place] at home Not on file 10/14/2023 Want [...] on filedocumented in this encounter Care Teams Lcpc Relationship Specialty Start Date End Date Kareen Carmona NP [address] [facility] [address] [place] [id number] PCP - General Family Medicine 01/06/23 Fabián Gorman MD [address] [facility] [address] [place] [address] Surveillance Systems Analyst Electrophysiology 06/18/24 documented as of this encounter
[2025-04-25 08:34] LABS: Hematocrit 37.3 % (42.0-52.0); Hemoglobin 12.0 g/dL (14.1-18.0); Mean Corpuscular HGB Conc 32.2 g/dL (31.8-35.4); Mean Corpuscular Hemoglobin 29.4 pg (27.0-31.2); Mean Corpuscular Volume 91.4 fl (80-94); Nucleated Red Blood Cells % 0 %; Platelet Count 257 K/mm3 (142-424); Red Blood Count 4.08 M/mm3 (4.60-6.20); Red Cell Distribution Width-SD 50.2 fL; White Blood Count 7.6 K/mm3 (4.8-10.8)
[2025-04-25 09:13] LABS: Alanine Aminotransferase 20 U/L (12-78); Albumin Level 3.6 g/dl (3.5-5.0); Albumin/Globulin Ratio 1.8 (1.1-1.8); Alkaline Phosphatase 99 U/L (38-126); Anion Gap 10.9 mEq/L (5-15); Aspartate Amino Transferase 21 U/L (17-59); Bilirubin,Total 0.4 mg/dl (0.2-1.3); Blood Urea Nitrogen 19 mg/dl (9-20); Calcium 8.9 mg/dl (8.4-10.2); Carbon Dioxide 26 mmol/L (22.0-30.0); Chloride 108 mmol/L (98-107); Cholesterol 95 mg/dl (140-200); Creatinine,Serum 1.00 mg/dl (0.66-1.25); Estimated Glomerular Filt Rate 73 ml/min (>60); GFR (African American) 89 ML/MIN (>60); Globulin 2.0 g/dL (1.3-3.2); Glucose 93 mg/dl (74-100); HDL Cholesterol 44 mg/dl (40-60); Potassium 3.9 mmoL/L (3.5-5.1); Sodium 141 mmol/L (136-145); Total Protein,Serum 5.6 g/dl (6.3-8.2); Triglycerides 77 mg/dl (30-150)
[2025-04-25 09:29] LABS: Free T4 (Free Thyroxine) 1.05 ng/dl (0.78-2.19)
[2025-04-25 09:44] LABS: Thyroid Stimulating Hormone 2.29 uIU/mL (0.465-4.68)
[2025-04-25 11:30] LABS: Hemoglobin A1C 5.4 % (4.0-6.0)
[2025-04-26 05:33] LABS: Hepatitis C Antibody Non Reactive (Non Reactive)
== END 2025-04-25 23:59 | disposition home or self-care (01) ==
PROVIDERS: PCP Nurse Practitioner; Visit Provider Nurse Practitioner
DX: E11.65 Type 2 diabetes mellitus with hyperglycemia (principal); E78.2 Mixed hyperlipidemia; Z12.5 Encounter for screening for malignant neoplasm of prostate; Z11.59 Encounter for screening for other viral diseases
CPT/HCPCS: 36415; 80053; 80061; 82043; 82570; 83036; 84439; 84443; 85027; 86803; G0103

== ENCOUNTER 2025-04-25 08:38 | Outpatient (RCR) | payer MEDICARE, SELFPAY | END 2025-04-25 23:59 | disposition home or self-care (01) | LOC: PT 08:38 | PROVIDERS: PCP Nurse Practitioner; Visit Provider Nurse Practitioner | DX: M62.81 Muscle weakness (generalized) (principal) | CPT/HCPCS: 97162; 97530 ==

== ENCOUNTER 2025-05-25 08:00 | Outpatient (RCR) | payer MEDICARE, SELFPAY | END 2025-05-25 23:59 | disposition home or self-care (01) | LOC: PT 08:00 | PROVIDERS: PCP Nurse Practitioner; Visit Provider Nurse Practitioner | DX: M62.81 Muscle weakness (generalized) (principal) | CPT/HCPCS: 97110; 97530 ==

== ENCOUNTER 2025-06-22 08:00 | Outpatient (RCR) | payer MEDICARE, SELFPAY | END 2025-06-22 23:59 | disposition home or self-care (01) | LOC: PT 08:00 | PROVIDERS: PCP Nurse Practitioner; Visit Provider Nurse Practitioner | DX: M62.81 Muscle weakness (generalized) (principal) | CPT/HCPCS: 97110; 97530 ==

== ENCOUNTER 2025-07-20 09:00 | Outpatient (RCR) | payer MEDICARE, SELFPAY | END 2025-07-20 23:59 | disposition home or self-care (01) | LOC: PT 09:00 | PROVIDERS: PCP Nurse Practitioner; Visit Provider Nurse Practitioner | DX: M62.81 Muscle weakness (generalized) (principal) | CPT/HCPCS: 97110; 97112; 97530 ==

== ENCOUNTER 2025-08-10 09:00 | Outpatient (RCR) | payer MEDICARE, SELFPAY | END 2025-08-10 23:59 | disposition home or self-care (01) | LOC: PT 09:00 | PROVIDERS: PCP Nurse Practitioner; Visit Provider Nurse Practitioner | DX: M62.81 Muscle weakness (generalized) (principal) | CPT/HCPCS: 97110; 97530 ==